=== PATIENT | male | born 1940 | race Caucasian/White ===

== ENCOUNTER 2016-12-07 20:57 | Inpatient (IN) | payer OTHER ==
[~2016-12-07] VITALS: Ht 172.7 cm; Wt 88.5 kg
--- NOTE | 2016-12-07 20:54 | EMERGENCY ROOM VISIT NOTE ---
History Report prepared by Lenoreibki: Arpita Mahmood Under the Supervision of: Dr. Jose E Parikh M.D. First contact with patient: 20:51 Stated Complaint: HEART ALERT History of Present Illness The patient is a 76 year old male who presents to the Emergency Room with complaints of cardiac arrest that started prior to arrival. He was brought to the ED via EMS. 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 He thought the pain would resolve, but when it didn't, he called EMS. Upon EMS arrival, the patient was diaphoretic, in ST elevation and rated his pain as a 6/10 in severity. He went into cardiac arrest and was shocked twice. After the 2nd shock, the patient was bradycardic. EMS gave him 324 mg Aspirin and 150 mg Amiodarone en route. EMS reports the patient has a history of a previous stroke and diabetes. The patient denies any current chest pain, shortness of breath or nausea. 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 A total of ten systems were reviewed and were otherwise negative. Past Medical & Surgical Medical Problems: (1) ACS (acute coronary syndrome) (2) Confusion (3) Diabetes (4) Stroke Social History Alcohol Use: occasionally Drug Use: none Marital Status: Housing Status: lives alone Occupation Status: retired Current/Historical Medications Scheduled Aspirin (Aspirin 81), 81 MG PO DAILY Atorvastatin (Atorvastatin Calcium), 20 MG PO DAILY Clopidogrel Bisulfate (Clopidogrel), 75 MG PO DAILY Furosemide (Furosemide), 20 MG PO DAILY Insulin Lispro Protamine & Lis (Humalog Mix 75/25 Kwikpen), 30 UNITS SC BID Lisinopril (Zestril), 10 MG PO DAILY Metformin Ext Rel (Glucophage Ext Rel), 1 TAB PO DAILY Allergies Coded Allergies: No Known Allergies (Unverified , 11/23/14) Physical Exam Vital Signs Date Time Temp Pulse Resp B/P (MAP) Pulse Ox O2 Delivery O2 Flow Rate FiO2 12/07/16 23:45 36.4 108 19 121/76 (91) 93 Oxymask 10.0 12/07/16 23:30 36.4 106 17 109/76 (87) 90 Oxymask 10.0 12/07/16 23:14 108 18 112/68 (83) 95 Non-Rebreather 100 12/07/16 23:04 110 18 114/68 (83) 95 Non-Rebreather 100 12/07/16 21:17 97 12/07/16 21:16 36.8 98 24 95/71 90 Non-Rebreather 12/07/16 21:15 90 Non-Rebreather 15.0 12/07/16 21:03 90 Non-Rebreather 12/07/16 21:03 90 Non-Rebreather 15.0 Physical Exam GENERAL: Awake, alert, pale appearing and diaphoretic. HENT: Normocephalic, atraumatic. Oropharynx unremarkable. Dry mucous membranes. EYES: Normal conjunctiva. Sclera non-icteric. NECK: Supple. No nuchal rigidity. FROM. No JVD. RESPIRATORY: Lung sounds are diminished at the bases, otherwise clear. CARDIAC: Tachycardic heart rate, normal rhythm. Extremities warm and well perfused. Pulses equal. ABDOMEN: Soft, non-distended. No tenderness to palpation. No rebound or guarding. No masses. RECTAL: Deferred. MUSCULOSKELETAL: Chest examination reveals no tenderness. The back is symmetrical on inspection without obvious abnormality. There is no CVA tenderness to palpation. No joint edema. LOWER EXTREMITIES: Calves are equal size bilaterally and non-tender. No lower extremity edema. No discoloration. NEURO: Normal sensorium. No sensory or motor deficits noted. SKIN: No rash or jaundice noted. Medical Decision & Procedures ER Provider Diagnostic Interpretation: Radiology results as stated below per my review and interpretation: BEDSIDE ECHOCARDIOGRAM Shows no pericardial effusion, but the patient does have inferior hypokinesis. Radiology results as stated below per my review and radiologist interpretation: CHEST ONE VIEW PORTABLE HISTORY: 76 years-old Male HEART ALERT acute altered mental status with cardiac symptoms. Initial exam. COMPARISON: Chest chest radiograph 10/07/2015 TECHNIQUE: Portable upright AP view of the chest FINDINGS: Cardiac silhouette is mildly enlarged. There is atherosclerosis of the aorta. There is no pneumothorax. There is mild blunting of the costophrenic angles with background interstitial coarsening, pulmonary vascular congestion and patchy bibasilar alveolar opacities. Bones are grossly intact. IMPRESSION: 1. Mild cardiomegaly with background interstitial coarsening suggests mild pulmonary edema. 2. Blunting of the costophrenic angles suggests trace pleural effusions or atelectasis. The above report was generated using voice recognition software. It may contain grammatical, syntax or spelling errors. Electronically signed by: Oniel Ramirez M.D. 12/07/2016 9:51 PM Laboratory Results 12/07/16 21:06 Red Blood Count 4.76, Mean Corpuscular Volume 94.1, Mean Corpuscular Hemoglobin 31.7, Mean Corpuscular Hemoglobin Concent 33.7, Mean Platelet Volume 9.5, Neutrophils (%) (Auto) 57.9, Lymphocytes (%) (Auto) 34.3, Monocytes (%) (Auto) 4.9, Eosinophils (%) (Auto) 2.0, Basophils (%) (Auto) 0.4, Neutrophils # (Auto) 6.43, Lymphocytes # (Auto) 3.81, Monocytes # (Auto) 0.55, Eosinophils # (Auto) 0.22, Basophils # (Auto) 0.05 Test 12/07/16 21:06 12/07/16 21:09 12/07/16 22:35 White Blood Count 11.12 K/uL (4.8-10.8) Red Blood Count 4.76 M/uL (4.7-6.1) Hemoglobin 15.1 g/dL (14.0-18.0) Hematocrit 44.8 % (42-52) Mean Corpuscular Volume 94.1 fL (80-100) Mean Corpuscular Hemoglobin 31.7 pg (25-34) Mean Corpuscular Hemoglobin Concent 33.7 g/dl (32-36) Platelet Count 279 K/uL (130-400) Mean Platelet Volume 9.5 fL (7.4-10.4) Neutrophils (%) (Auto) 57.9 % Lymphocytes (%) (Auto) 34.3 % Monocytes (%) (Auto) 4.9 % Eosinophils (%) (Auto) 2.0 % Basophils (%) (Auto) 0.4 % Neutrophils # (Auto) 6.43 K/uL (1.4-6.5) Lymphocytes # (Auto) 3.81 K/uL (1.2-3.4) Monocytes # (Auto) 0.55 K/uL (0.11-0.59) Eosinophils # (Auto) 0.22 K/uL (0-0.5) Basophils # (Auto) 0.05 K/uL (0-0.2) RDW Standard Deviation 46.0 fL (36.4-46.3) RDW Coefficient of Variation 13.4 % (11.5-14.5) Immature Granulocyte % (Auto) 0.5 % Immature Granulocyte # (Auto) 0.06 K/uL (0.00-0.02) Prothrombin Time 10.6 SECONDS (9.0-12.0) Prothromb Time International Ratio 1.0 (0.9-1.1) Activated Partial Thromboplast Time 22.4 SECONDS (21.0-31.0) Partial Thromboplastin Ratio 0.9 Est Creatinine Clear Calc Drug Dose 36.0 ml/min Magnesium Level 2.2 mg/dl (1.8-2.4) Total Bilirubin 0.3 mg/dl (0.2-1) Direct Bilirubin 0.1 mg/dl (0-0.2) Aspartate Amino Transf (AST/SGOT) 55 U/L (15-37) Alanine Aminotransferase (ALT/SGPT) 79 U/L (12-78) Alkaline Phosphatase 127 U/L (45-117) Total Creatine Kinase 133 U/L (39-308) Creatine Kinase MB 3.0 ng/ml (0.5-3.6) Creatine Kinase MB Ratio 2.3 (0-3.0) Total Protein 6.3 gm/dl (6.4-8.2) Albumin 3.1 gm/dl (3.4-5.0) Lipase 114 U/L (73-393) Beta-Hydroxybutyric Acid 1.68 mg/dL (0.2-2.81) Bedside Troponin I < 0.030 ng/ml (0-0.045) Kaolin Activated Coagulation Time 241 SECONDS (94-140) Laboratory results reviewed by me Medications Administered Medications (Trade) Dose Ordered Sig/Rae Route Start Time Stop Time Status Last Admin Dose Admin Sodium Chloride 1,000 ml @ 0 mls/hr Q0M STAT IV 12/07/16 20:56 12/07/16 20:58 DC 12/07/16 20:56 1,000 MLS/HR Amiodarone HCL/ Dextrose (Nexterone / D5w) 360 mg STK-MED ONCE .ROUTE 12/07/16 21:06 12/07/16 21:07 DC 12/07/16 21:06 360 MG Heparin Sodium (Porcine) (Heparin Sq 5000 Unit/0.5ml) 5,000 unit STK-MED ONCE .ROUTE 12/07/16 21:11 12/07/16 21:12 DC 12/07/16 21:15 5,000 UNIT Ticagrelor (Brilinta Cap) 180 mg ONE ONCE PO 12/07/16 21:15 12/07/16 21:16 DC 12/07/16 21:15 180 MG Heparin Sodium (Porcine) (Heparin Iv Bolus) 10,000 unit STK-MED ONCE .ROUTE 12/07/16 21:13 12/07/16 21:14 DC 12/07/16 21:13 10,000 UNIT Midazolam HCl (Versed Inj) 2 mg STK-MED ONCE .ROUTE 12/07/16 21:13 12/07/16 21:14 DC 12/07/16 21:13 1 MG Fentanyl Citrate (Fentanyl Inj) 100 mcg STK-MED ONCE .ROUTE 12/07/16 21:13 12/07/16 21:14 DC 12/07/16 21:13 25 MCG Amiodarone HCl (Cordarone IV Bolus / Drip) 1 ea NOW STAT IV 12/07/16 21:14 12/07/16 21:16 DC 12/07/16 21:14 1 EA Ondansetron HCl (Zofran Inj) 4 mg STK-MED ONCE .ROUTE 12/07/16 21:19 12/07/16 21:20 DC 12/07/16 21:22 4 MG ECG Indication: chest pain Rhythm: sinus tachycardia Findings: ST elevation (Inferior) ED Course 2055: NSS 1000 ml @ 0 mls/hr IV. 2057: The patient was evaluated in room A1. A complete history and physical exam was performed. 2105: Nexterone 360 mg IV. 2115: I discussed the patients case with Dr. Pak [facility] Interventional Cardiology. The patient will be further evaluated. 2136: I discussed the patients case with Dr. Medrano, [facility] Gun Welder. The patient will be further evaluated. Medical Decision I reviewed the patient's past medical history, medications, and the nursing notes as described above. The differential diagnoses considered include Patient is a 76-year-old gentleman with a past medical history of stroke presents to emergency department with chest pain starting 2 hours prior to arrival found to have inferior ST elevation [place] by EMS, subsequent V-tach arrest requiring defibrillation and epinephrine and then subsequent defibrillation until sinus tach was obtained. The patient was given `50 mg of amiodarone. The patient arrives alert and oriented however pale and diaphoretic. Systolic blood pressure soft in the 90s but otherwise stable. EKG on arrival confirms inferior ST elevation FL. Bedside echo shows diffuse hypokinesis inferiorly without pericardial effusion. Dr. Pak, carbon coater machine operator, at the bedside and consented patient for cardiac catheterization. Agrees with heparin bolus which was given and ticagrelor which was ordered however patient having nausea and vomiting in the setting of his nasal airway, nasal airway was removed , given zofran and thus the ticagrelor was sent with the patient to the Submar[facility] Cable Equipment Technician. Dr. Michelle, medicine hospitalist was made aware as well as Dr. Medrano, ICU viscosity inspector. Medication Reconcilliation Current Medication List: was personally reviewed by me Blood Pressure Screening Patient's blood pressure: Low blood pressure Low BP was found to be situational. Consults Time Called: 2113 [facility] Returned Call: 2115 I discussed the patients case with Dr[facility]. The patient will be further evaluated. Additional Consults: Time Called: 2134 Consulted Physician: Dr. Medrano, [facility] Gun [employer]der Returned Call: 2136 Additional Comments: I discussed the patients case with Dr. Medrano [facility] [employer]der. The patient will be further evaluated. Impression Primary Impression: ST elevation myocardial infarction (STEMI) of inferior wall Critical Care I have personally spent greater than [35] minutes of critical care time in the direct management of this patient. This includes bedside care, interpretation of diagnostic studies, and testing, discussion with consultants, patient, and family members, and other required patient management activities. This [35] minutes is in excess of all separately billable procedures. Scribe Attestation The scribe's documentation has been prepared under my direction and personally reviewed by me in its entirety. I confirm that the note above accurately reflects all work, treatment, procedures, and medical decision making performed by me. Departure Information Dispostion Other (The patient is being further evaluated by interventional cardiology)
[~2016-12-07 20:57] MED LIST: ASPI-435 PO; INSU75IN2 SC; LISI-461 PO; LPT/20 PO; LSX20 PO; METFTAB PO; PLV75 PO; SODIUM CHLORIDE 0.9% 1000ML 1,000 ML IV STA
[2016-12-07] MEDS ORDERED: AMIODARONE 360MG / 200ML D5W ONE (21:06)
[2016-12-07] MEDS ORDERED: HEPARIN SOD 5000 UNIT/0.5 ML CARP ONE (21:11)
[2016-12-07] MEDS ORDERED: HEPARIN SOD (PORCINE) 1000 UNIT/ML 10 ML VIAL IV STA (21:12)
[2016-12-07] MEDS ORDERED: NiCARDipine HCL INJ 2.5 MG/ML 10 ML AMP ONE (21:13)
[2016-12-07] MEDS ORDERED: FENTANYL CITRATE INJ 50 MCG/1 ML 2 ML VIAL ONE (21:13)
[2016-12-07] MEDS ORDERED: HEPARIN SOD (PORCINE) 1000 UNIT/ML 10 ML VIAL ONE (21:13)
[2016-12-07] MEDS ORDERED: NITROGLYCERIN/D5W 100MCG/ML 20ML SYR ONE (21:13)
[2016-12-07] MEDS ORDERED: MIDAZOLAM HCL 1 MG/ML 2ML VIAL ONE (21:13)
[2016-12-07] MEDS ORDERED: AMIODARONE IV BOLUS / DRIP IV STA (21:14)
[2016-12-07] MEDS ORDERED: TICAGRELOR 90 MG TAB PO ONE (21:15)
[2016-12-07] MEDS ORDERED: ONDANSETRON INJ 2 MG/ML 2 ML VIAL IV STA (21:19)
[2016-12-07] MEDS ORDERED: ONDANSETRON INJ 2 MG/ML 2 ML VIAL ONE (21:19)
--- NOTE | 2016-12-07 21:21 | Procedure Note ---
Pre-Mod Sedation Assessment General Date of Moderate Sedation: Dec 07, 2016. Vital Signs: Vital Signs Past 12 Hours Date Time Temp Pulse Resp B/P (MAP) Pulse Ox O2 Delivery O2 Flow Rate FiO2 12/07/16 21:17 97 12/07/16 21:16 36.8 98 24 95/71 90 Non-Rebreather 12/07/16 21:03 90 Non-Rebreather 12/07/16 21:03 90 Non-Rebreather 15.0 Review Cardiovascular: regular rate, rhythm, no edema Abdomen: normal bowel sounds, non tender Lungs: chest non-tender, lungs clear Airway Class: III Pre-Sedation Airway Assessment Oral Cavity: Dental Abnormalities Able to Visualize Vocal Cords: No Short Thick Neck: No Hx of Sleep Apnea: No Smoking Status: Never Smoker Mallampati Classification: Class III ASA Classification: Class IV Procedure Planning Contraindications-for Mod Sed: None Yes Notes The planned sedation has been discussed with the patient and consent obtained. I have identified the patient, determined the appropriateness of sedation and have assessed the patient immediately prior to the procedure. All medicine(s) and interventions are by my order.
[2016-12-07 21:22] LABS: BASO % 0.4 %; BASO ABS # 0.05 K/uL (0-0.2); COMPLETE YES; HEMATOCRIT 44.8 % (42-52); IG% 0.5 %; LYMPH % 34.3 %; LYMPH ABS # 3.81 K/uL (1.2-3.4); MEAN CELL VOLUME 94.1 fL (80-100); MEAN CORPUSCULAR HEMOGLOBIN 31.7 pg (25-34); MEAN CORPUSCULAR HGB CONC 33.7 g/dl (32-36); MEAN PLATELET VOLUME 9.5 fL (7.4-10.4); MONO % 4.9 %; NEUT % 57.9 %; PLATELET COUNT 279 K/uL (130-400); RED BLOOD COUNT 4.76 M/uL (4.7-6.1); WHITE BLOOD COUNT 11.12 K/uL (4.8-10.8)
[2016-12-07 21:42] LABS: PARTIAL THROMBOPLASTIN RATIO 0.9; PROTHROMBIN TIME (PATIENT) 10.6 SECONDS (9.0-12.0)
--- NOTE | 2016-12-07 21:52 | DIAGNOSTIC IMAGING REPORT ---
CHEST ONE VIEW PORTABLE HISTORY: 76 years-old Male HEART ALERT acute altered mental status with cardiac symptoms. Initial exam. COMPARISON: Chest chest radiograph 10/07/2015 TECHNIQUE: Portable upright AP view of the chest FINDINGS: Cardiac silhouette is mildly enlarged. There is atherosclerosis of the aorta. There is no pneumothorax. There is mild blunting of the costophrenic angles with background interstitial coarsening, pulmonary vascular congestion and patchy bibasilar alveolar opacities. Bones are grossly intact. IMPRESSION: 1. Mild cardiomegaly with background interstitial coarsening suggests mild pulmonary edema. 2. Blunting of the costophrenic angles suggests trace pleural effusions or atelectasis. The above report was generated using voice recognition software. It may contain grammatical, syntax or spelling errors. Electronically signed by: Oniel Ramirez M.D. 12/07/2016 9:51 PM Dictated Date/Time: 12/07/2016 9:49 PM
[2016-12-07 21:55] LABS: BUN/CREATININE RATIO 10.5 (10-20); CALCIUM 7.9 mg/dl (8.5-10.1); CKMB/CK RATIO 2.3 (0-3.0); CREATININE 1.8 mg/dl (0.60-1.40); MAGNESIUM 2.2 mg/dl (1.8-2.4); POTASSIUM 3.4 mmol/L (3.5-5.1)
[2016-12-07 22:08] LABS: BETA-HYDROXYBUTYRATE 1.68 mg/dL (0.2-2.81)
--- NOTE | 2016-12-07 23:10 | CARDIOLOGY CONSULTATION ---
DATE OF CONSULTATION: 12/07/2016 REASON FOR CONSULTATION: Heart alert/inferior STEMI. CONSULTATION REQUESTED BY: Dr. Parikh/Emergency Department. HISTORY OF PRESENT ILLNESS: Mr. Russell is a 76-year-old male with a history of type 2 diabetes on insulin, prior CVA, hypertension, chronic kidney disease, here with inferior STEMI. The patient endorsed 2 hours of chest pain before calling EMS. Pain was substernal, 6/10 and constant. Upon arrival by EMS, the patient was given aspirin, but then arrested, requiring 2 defibrillations before return of spontaneous circulation. Upon arrival in the Emergency Department, he had inferior ST elevations and appeared to be in an accelerated junctional rhythm with reciprocal anterior ST depressions. He was hemodynamically stable and maintaining oxygen saturations on face mask. He was alert and able to answer questions. PAST MEDICAL HISTORY: 1. Type 2 diabetes. 2. Hypertension. 3. Chronic kidney disease stage IV. 4. Prior CVA. FAMILY HISTORY: Noncontributory. 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 He is not . REVIEW OF SYSTEMS: Not obtained in the emergent situation. ALLERGIES: No known drug allergies. HOME MEDICATIONS: Include aspirin 81, atorvastatin 20, Plavix 75, furosemide 20, insulin lispro 10 and metformin. PHYSICAL EXAMINATION: VITAL SIGNS: Temperature 36.4, pulse 98, blood pressure 95/71, he is satting 90% on nonrebreather at 15 liters. GENERAL: The patient appeared ill, in no acute distress. HEENT: Sclerae are anicteric. Oropharynx is clear. Mucous membranes are moist. NECK: Supple with no lymphadenopathy. LUNGS: Clear to auscultation bilaterally. HEART: Irregular rate and rhythm. He had no murmurs, rubs or gallops. ABDOMEN: Soft, nontender, nondistended with positive bowel sounds. EXTREMITIES: Warm with no significant lower extremity edema. SKIN: Showed no rashes. NEUROLOGIC: He had 2+ radial pulses bilaterally. LABORATORY DATA: Laboratory studies not returned. Chest x-ray showed no significant acute cardiopulmonary process. EKG showed accelerated junctional rhythm with inferior ST elevations. IMPRESSION AND PLAN: 1. Inferior ST elevation myocardial infarction. 2. Post-cardiac arrest with return of spontaneous circulation. 3. Type 2 diabetes on insulin 4. History of chronic kidney disease. 5. History of prior cerebrovascular accident. He is now chest pain free and hemodynamically stable. Inferior ST elevation persist and with earlier VT arrest we will plan to take patient emergently to cardiac catheterization lab for coronary angiography and likely PCI. Risks, benefits, and alternatives of procedure were discussed with the patient, he is willing to proceed. Further recommendations depending on findings of study. EFREND
[2016-12-07 23:30] VITALS: BP 109/76; PULSE 106; TEMP 36.4; O2SAT 90; O2SAT 94; BMI 29.3
[2016-12-07 23:45] VITALS: BP 121/76; PULSE 108; TEMP 36.4; O2SAT 93
--- NOTE | 2016-12-07 23:51 | Cardiac Catheterization ---
Procedure Note Procedure Date Dec 07, 2016. Pre-Procedure Diagnosis STEMI AUC Score 9 Post-Procedure Diagnosis Severe CAD, Successful PCI, Elevated Intracardiac Pressures Procedure(s) Performed Coronary Angiography, Left Heart Cath, Drug Eluting Stent Turn Out Worker Pasha Paperhanger(s) Ángel Estimated Blood Loss 20 Medication(s) Fentanyl, Heparin, Versed, Lidocaine 1% Ticagrelor Summary of Findings Indication: STEMI/Heart Alert. Acute chest pain with. VT/Cardiac arrest en route requiring defibrillation x 2 before ROSC Access: 6Fr Right Radial Artery Catheters: [place]; JR4 guide Findings: LM - Small vessel with diffuse disease, tapering distally LAD - Small vessel, diffuse proximal disease before chronic occlusion at take- off 2nd diagonal and 1st septal. 1st diagonal very small with diffuse disease. 2nd diagonal with 70% proximal disease. Distal LAD and 3rd diagonal are small vessels which fill by left to left collaterals. Circumflex - Small vessel, 90% mid segment stenosis. RCA - Dominant, large caliber vessel, 70-80% diffuse early-mid segment stenosis , acute 100% late-mid segment occlusion. After flow re-established 60% distal stenosis just before take-off of R-PDA. R-PDA with 60% ostial, 90% mid stenosis. Luminal irregularities in PLBs and evidence of right to left collaterals to LAD. LVEDP - 20 -- PCI -- Antithrombotic therapy: Heparin, Ticagrelor Procedure: RCA cannulated with JR4 guide Marketing Officer 50 wire passed across lesion into distal vessel Late-mid RCA lesion predilated with 2.5 compliant balloon Poor angioplasty result and decision made to proceed with stenting of RCA Remainder of mid RCA lesions dilated with 2.5 balloon. Stent delivered to distal vessel with aid of guideliner Late-mid to distal RCA stented with 3.0 x 26 Resolute MALICK 3.0 x 38 [place] Resolute MALICK placed from proximal RCA and overlapped distally with 1st stent. Stents post-dilated with 3.5 NC balloon to high-atmospheres Distal RCA after stents appeared more significant than initially appreciated and 3rd stent was placed to distal RCA overlapping distal end of 1st stent placed. Stent post-dilated with stent balloon. Post procedure FELIPA 3 flow, stents well expanded with minimal residual stenosis and no apparent cardiac complications. Arterial Closure: TR Band Summary: 1. Inferior STEMI/Acute occluded RCA 2. Severe multivessel coronary artery disease - Small chronically occluded early-mid LAD with distal vessel filling via left to left and right to left collaterals. - Small 2nd diagonal with 70% proximal disease - Small circumflex with 90% mid stenosis 3. Elevated intracardiac filling pressure, LVEDP 20 4. Successful PCI of proximal to distal RCA with 3 overlapping MALICK (3.0 x 38 [place] Resolute, 3.0 x 26 Resolute, 2.75 x 15 [place] Resolute) Recommendations: Admit to ICU for continued monitoring Loaded with Ticagrelor 180mg in label cutter Continue dual-antiplatelet therapy for 1 year Trend troponins until peak, Check Echo Start beta-treasure as BP allows. Resume RAÚL pending renal function post contrast High-dose statin Consult cardiac Rehab Further decision regarding management of residual CAD pending clinical course, echo findings. Likely medical management for small diffusely diseased vessels. Hemodynamics Rest Ao: 97/58/77 Final Ao: 105/63/81 LV: 101/18 Recommendations PCI without planned CABG Specimens None Radiation Exposure (mGy) 6266 Contrast (mls) 190 Visi Fluids (cc crystalloids) 190 Drains None Anesthesia Moderate Procedural Complication(s) None Disposition ICU ACC Data Cardiac Status Clinical evaluation leading to the procedure CAD Presntation: STEMI Anginal Classification: CCS IV Heart Failure: No, NYHA Class: CCS I Cardiogenic Shock w/in 24Hrs: No Cardiac Arrest w/in 24Hrs: No Imaging studies past 6 months: No Stress studies past 6 months: No Coronary Anatomy Dominant: Right Closure Device Percutaneous Entry Location: Radial Closure Device: Radial Band Recommendations: PCI without planned CABG PCI Indication: Immediate PCI for STEMI Lesion Segment Name: Mid RCA Culprit Artery: Yes Stenosis Prior to Rx (%): 100 Chronic Total Occlusion: No IVUS: No FFR: No Pre-Procedure FELIPA Flow: 0 Previously Treated Lesion: No Lesion Complexity: High/C Lesion Length (mm): 25 Thrombus Present: Yes Bifurcation Lesion: No Guidewire Across Lesion: Yes Guidewire: Stenosis Post-Procedure (%): 0 Post-Procedure FELIPA Flow: 3 Device(s) Deployed: Yes Intraprocedure Events Significant Dissection: No Perforation: No
[2016-12-08] VITALS (47 sets, daily range): BP systolic 74–129; BP diastolic 41–93; PULSE 84–115; TEMP 36.4–37.2; O2SAT 87–96; Ht 172.7 cm; Wt 88.5 kg
[2016-12-08] MEDS ORDERED: ONDANSETRON INJ 2 MG/ML 2 ML VIAL IV PRN
[2016-12-08] MEDS ORDERED: NITROGLYCERIN 0.4 MG SL PER TAB CHARGE SL PRN
[2016-12-08] MEDS ORDERED: ATROPINE SULFATE 0.1 MG/ML 5ML SYR IV PRN
[2016-12-08] MEDS ORDERED: SODIUM CHLORIDE 0.9% 1000ML 1,000 ML IV SCH
[2016-12-08] MEDS ORDERED: POTASSIUM CHLORIDE 10 MEQ TABCR PO STA (00:01)
[2016-12-08] MEDS ORDERED: INSULIN GLARGINE SOLOSTAR 100 UNITS/ML 3 ML PEN SC ONE ×2 (00:02→00:19)
[2016-12-08] MEDS ORDERED: INSULIN ASPART 100 UNITS/ML 3 ML PEN SC ONE (00:02)
--- NOTE | 2016-12-08 00:06 | Procedure Note ---
Post-Mod Sedation Assessment General Date of Moderate Sedation Dec 07, 2016. Vital Signs: Vital Signs Past 12 Hours Date Time Temp Pulse Resp B/P (MAP) Pulse Ox O2 Delivery O2 Flow Rate FiO2 12/07/16 21:17 97 12/07/16 21:16 36.8 98 24 95/71 90 Non-Rebreather 12/07/16 21:03 90 Non-Rebreather 12/07/16 21:03 90 Non-Rebreather 15.0 Review - Discharge Criteria Vital Signs Stable: Yes Alert/Oriented/Conversant: Yes Returned to Baseline Mental St: Yes Nausea Absent/Minimal: Yes Pain/Discomfort/Absent/Minimal: Yes Normal/Baseline Respirations: Yes Active Bleeding?: Yes Pt Received D/C Instructions: No Prescriptions Given: None Specific Proced. D/C Criteria Distal Pulses Present (Cardiac: Yes Groin site assessed-Card Cath: N/A Voided Prior To Discharge: N/A Discharged Patients Adult Escort/Transportation: Yes
[2016-12-08] MEDS ORDERED: GLUCOSE 40% GEL 15 GM TUBE PO PRN (00:15)
[2016-12-08] MEDS ORDERED: GLUCOSE 10 TABS/TUBE PO PRN (00:15)
[2016-12-08] MEDS ORDERED: DEXTROSE 50% 50 ML SYR IV PRN (00:15)
[2016-12-08] MEDS ORDERED: LEVALBUTEROL/IPRATROPIUM NEB INH PRN (00:15)
[2016-12-08] MEDS ORDERED: GLUCAGON FOR INJ 1 MG VIAL SQ PRN (00:15)
[2016-12-08 01:12] LABS: ARTERIAL BLD GAS O2 SATURATION 92.8 % (90-95); ARTERIAL BLOOD GAS BASE EXCESS -5.7 mEq/L (-9-1.8); ARTERIAL BLOOD GAS HCO3 18 mmol/L (19-24); ARTERIAL BLOOD GAS PO2 69 mm/Hg (80-95); ARTERIAL BLOOD GAS pH 7.37 (7.35-7.45)
[2016-12-08 01:13] LABS: ALLEN TEST POS (POS); O2 ADMINISTRATION 10 L
[2016-12-08 01:30] LABS: BUN/CREATININE RATIO 12.7 (10-20); CALCIUM 8.3 mg/dl (8.5-10.1); CREATININE 1.5 mg/dl (0.60-1.40); POTASSIUM 4.9 mmol/L (3.5-5.1)
[2016-12-08] MEDS ORDERED: LEVALBUTEROL/IPRATROPIUM NEB INH STA (01:37)
[2016-12-08] MEDS ORDERED: IPRATROPIUM BROMIDE NEB SOLN 0.02% 2.5 ML VIAL INH STA (01:40)
[2016-12-08] MEDS ORDERED: LEVALBUTEROL 1.25MG/0.5ML NEB INH STA (01:40)
[2016-12-08 01:45] LABS: BETA-HYDROXYBUTYRATE 7.03 mg/dL (0.2-2.81); THYROID STIMULATING HORMONE 2.86 uIu/ml (0.300-4.500)
[2016-12-08] MEDS ORDERED: AMIODARONE / D5W 100 ML IV STA (01:55)
[2016-12-08] MEDS ORDERED: METOPROLOL TARTRATE 25 MG TAB PO STA (01:55)
[2016-12-08] MEDS ORDERED: NURSING VERBAL MED ORDER ONE ×2 (02:00→03:15)
[2016-12-08] MEDS ORDERED: ACETAMINOPHEN 325 MG TAB PO PRN ×2 (03:00)
[2016-12-08] MEDS ORDERED: AMIODARONE 360MG / 200ML D5W ONE (03:08)
[2016-12-08] MEDS ORDERED: AMIODARONE / D5W 200 ML IV SCH (03:15)
--- NOTE | 2016-12-08 04:42 | HISTORY & PHYSICAL EXAMINATION ---
DATE OF ADMISSION: 12/07/2016 PRIMARY CARE PHYSICIAN: Dr. Kalin Matthews. CHIEF COMPLAINT: Chest pain. HISTORY OF PRESENT ILLNESS: History is obtained from the patient, ER provider, and records. Medical history is significant for TIA, hypertension, hyperlipidemia, DM2 insulin requiring, chronic renal insufficiency (baseline creatinine 1.8). Recent confinement last October 2015 for confusion, hypoglycemia. Patient noted bilaterally leg swelling 2 weeks ago. Denies shortness of breath. Did not tell family doctor patient Last night, the patient was watching television, had substernal heaviness w/ diaphoresis for about 2 hours. Son called EMS. ST elevations noted as per ER MD. Patient went into cardiac arrest and was shocked twice. Patient does not recall the episode, remembers having bitten his tongue. Px given ASA, IV amiodarone bolus en route to the hospital. At the Emergency Room, EKG done showed ST elevation in the inferior leads. Heart Alert called. Patient underwent emergent cardiac catheterization. Acute occluded RCA noted, severe multivessel CAD with chronically occluded early mid LAD, small secondary with 70%, small circumflex with 90% stenosis, LVEDP of 20. PCI of proximal and distal RCA with the overlapping stents. Patient transferred to the ICU. Currently comfortable. MEDICAL HISTORY: As above. SURGERIES: Appendectomy. HOME MEDICATIONS: Include, aspirin, Lipitor, Plavix, furosemide, Humalog, Zestril DRUG ALLERGIES: PENICILLIN, METFORMIN . FAMILY HISTORY: No heart disease as per the patient. PERSONAL SOCIAL HISTORY: Nonsmoker, no chronic intake of alcoholic beverages. 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 REVIEW OF SYSTEMS: As per HPI, all other ROS negative. PHYSICAL EXAMINATION: VITAL SIGNS: Blood pressure was noted to be 129/90, pulse rate 111, RR 20, temperature 36.4, sats 93 on 10 L oxygen mask. GENERAL: Somewhat anxious, obese, no respiratory distress. SKIN: Pallor. HEENT: alopecia. pink palpebral conjunctivae. Dry mucosa. O2 mask noted CHEST: Decreased breath sounds. HEART: Tachycardic. ABDOMEN: Some distension, non tender. EXTREMITIES: Minimal LE edema, no tenderness. NEUROLOGIC: No gross focality. LABORATORY DATA: Hemoglobin was noted to be 15.1, white cells 11, platelets 279. Sodium 139, potassium 3.4, chloride 108, CO2 is 18, BUN 19, creatinine 1.8, glucose 264. Troponin 0.03. ABG: pH of 7.27, pCO2 32, pO2 69 on 10 liters. EKG as per my interpretation sinus tachycardia, ST elevation in inferior leads, PRWP. Hemoglobin A1c from October 2015 was 9.4. IMAGING DATA: Chest x-ray: Cardiomegaly, mild pulmonary edema, atelectasis. ASSESSMENT: 1. Acute coronary syndrome ST elevation [place] status post percutaneous coronary intervention. Patient currently chest pain-free at the ICU. 2. hx VT/VF sp defibrillation with subsequent ROSC Patient current mentation at baseline. Currently on IV Amiodarone drip. 3. Acute hypoxemic respiratory failure secondary to acute congestive heart failure likely secondary to ischemic cardiomyopathy. 4. Lower extremity swelling secondary to above rule out DVT 5. HTN, blood pressure on the lower side. 6. Chronic renal insufficiency, creatinine at baseline. 7. DM2, insulin requiring, suboptimal control as of A1c from last year. Patient markedly hyperglycemic upon arrival at the ER. 8. hx TIA as per records PLAN: ICU monitoring Management of cardiac issues as per cardiology. supplemental O2, nebs p.r.n. Monitor for fluid overload with post-PCI IV fluids, may need IV Lasix. Strict IOs, daily weights, CHF education Lower extremity Dopplers rule out DVT Basal insulin, ISS BG goal 140-180. Check hemoglobin A1c May diabetic education pending HgA1c results. PT, OT eval. DVT prophylaxis as per post-PCI orders. Full code. MTDD
[2016-12-08 06:15] LABS: BASO % 0.1 %; BASO ABS # 0.02 K/uL (0-0.2); COMPLETE YES; EOS % 0.1 %; HEMATOCRIT 43.2 % (42-52); IG% 0.5 %; LYMPH % 6.3 %; MEAN CELL VOLUME 90.9 fL (80-100); MEAN CORPUSCULAR HEMOGLOBIN 32.4 pg (25-34); MEAN CORPUSCULAR HGB CONC 35.6 g/dl (32-36); MEAN PLATELET VOLUME 9.5 fL (7.4-10.4); MONO % 6.5 %; NEUT % 86.5 %; PLATELET COUNT 245 K/uL (130-400); RED BLOOD COUNT 4.75 M/uL (4.7-6.1); WHITE BLOOD COUNT 17.58 K/uL (4.8-10.8)
[2016-12-08 06:28] LABS: ESTIMATED AVERAGE GLUCOSE 229 mg/dl; HA1C FLAG Normal (Normal)
[2016-12-08] MEDS ORDERED: ALBUMIN HUMAN 25% 12.5 GM/50 ML VIAL IV STA (06:45)
--- NOTE | 2016-12-08 07:19 | DIAGNOSTIC IMAGING REPORT ---
ULTRASOUND BILATERAL LOWER EXTREMITY VENOUS CLINICAL HISTORY: Lower extremity edema. COMPARISON STUDY: No priors. TECHNIQUE: Real-time, grayscale, and color Doppler sonography of the deep veins of the right and left lower extremity was performed from the inguinal crease to the calf. Compression and augmentation were utilized. FINDINGS: There is no sonographic evidence of deep venous thrombosis identified in the right or left lower extremity. The common femoral, superficial femoral, and popliteal veins are patent and normally compressible bilaterally. The greater saphenous vein and the profunda femoris vein at the junction with the common femoral vein are clear in both legs. The visualized calf veins are patent bilaterally. IMPRESSION: There is no sonographic evidence of deep venous thrombosis identified in the right or left lower extremity. Electronically signed by: Corey Brown M.D. 12/08/2016 7:18 AM Dictated Date/Time: 12/08/2016 7:18 AM
[2016-12-08] MEDS: INSULIN ASPART 100 UNITS/ML 3 ML PEN SC SCH ×4 (08:43→20:55)
[2016-12-08] MEDS: ATORVASTATIN 40 MG TAB PO SCH (08:44)
[2016-12-08] MEDS: AMIODARONE / D5W 200 ML IV SCH ×2 (08:44→19:37)
[2016-12-08] MEDS: ASPIRIN 81 MG ECTAB PO SCH (08:45)
[2016-12-08] MEDS: TICAGRELOR 90 MG TAB PO SCH ×2 (08:45→20:54)
[2016-12-08] MEDS ORDERED: METOPROLOL TARTRATE 25 MG TAB PO SCH ×2 (09:00→21:00)
[2016-12-08] MEDS ORDERED: INSULIN GLARGINE SOLOSTAR 100 UNITS/ML 3 ML PEN SC SCH ×2 (09:00)
[2016-12-08] MEDS: SODIUM CHLORIDE 0.9% 1000ML 1,000 ML IV SCH (09:54)
--- NOTE | 2016-12-08 11:44 | Critical Care Consultation ---
Critical Care Consultation Date of Consultation: Dec 08, 2016. Attending Physician: Amanda Corcoran DO Reason for Consultation: STEMI History of Present Illness This is a 76 yo male patient who is known to have h/o TIA, hypertension, hyperlipidemia, diabetes type 2 insulin requiring, chronic renal insufficiency, with baseline creatinine 1.8. He also has h/o admissions due to hypoglycemia and secondary AMS. He had developed crushing substernal CP while at rest watching TV last evening. It lasted about 2 hours and the son called EMS. They gave him aspirin and brought him to [facility]. When he arrived in the ED he was found to have STEMI with ST elevations in the inferior leads II, III and aVF as well as Wenkebach type 2 blocjs. He developed V tach/Fib and required cardioversion x 2 and one epinephrine with ROSC into sinus tachycardia. he was started on amiodarone and transferred to medical lab tech instructor where Dr Pak performed emergent angiography and found. 1- very [id number] diagonal with diffuse disease. 2- 2nd diagonal with 70% proximal disease. 3- Distal LAD and 3rd diagonal are small vessels which fill by left to left collaterals. 4- small Circumflex with 90% mid segment stenosis. 5- Dominant, RCA with large caliber vessel, 70-80% diffuse early-mid segment stenosis, acute 100% late-mid segment occlusion. + PDA and tributaries. The patient is s/p placement of overlapping 3 MALICK. overnight he had a run of non sustained tachycardia but is on amiodarone The patient this am says the pain is gone and there was no SOB no nausea. He says he used to walk 10 miles a day up till age 71. he also says he has been having trouble controlling BS lately (past 2 months) He complained of L ankle swelling but LE venous doppler shows no DVT Family History Patient reports no known family medical history. No CAD Social History Smoking Status: Never Smoker Drug Use: none Marital Status: Housing Status: lives alone Occupation Status: retired Allergies Coded Allergies: No Known Allergies (Unverified , 11/23/14) Home Medications Scheduled Aspirin (Aspirin 81), 81 MG PO DAILY Atorvastatin (Lipitor), 1 TAB PO DAILY Clopidogrel Bisulfate (Clopidogrel), 75 MG PO DAILY Furosemide (Furosemide), 20 MG PO DAILY Insulin Detemir (Levemir Flextouch), 45 UNITS SQ BID Lisinopril (Lisinopril), 5 MG PO QAM Metoprolol Succinate (Toprol Xl), 100 MG PO DAILY Current Inpatient Medications Current Inpatient Medications Medications (Trade) Dose Ordered Sig/Rae Route Start Time Stop Time Status Last Admin Dose Admin Nitroglycerin (Nitrostat Tab) 0.4 mg UD PRN SL 12/08/16 00:00 01/07/17 00:00 Atropine Sulfate (Atropine Sulfate 0.1MG/Ml Inj) 0.5 mg ONE PRN IV 12/08/16 00:00 01/07/17 00:00 Ondansetron HCl (Zofran Inj) 4 mg Q6H PRN IV 12/08/16 00:00 01/07/17 00:00 Aspirin (Ecotrin Tab) 81 mg QAM PO 12/08/16 09:00 01/07/17 08:59 12/08/16 08:45 81 MG Atorvastatin Calcium (Lipitor Tab) 80 mg QAM PO 12/08/16 09:00 01/07/17 08:59 12/08/16 08:44 80 MG Ticagrelor (Brilinta Cap) 90 mg BID PO 12/08/16 09:00 01/07/17 08:59 12/08/16 08:45 90 MG Insulin Aspart (novoLOG ASPART) SLIDING SCALE If C... ACHS SC 12/08/16 06:45 01/07/17 06:59 12/08/16 08:43 7 UNITS Glucose (Glucose 40% Gel) 15-30 GRAMS 15 GRAMS... UD PRN PO 12/08/16 00:15 01/07/17 00:14 Glucose (Glucose Chew Tab) 4-8 Tablets 4 Tabl... UD PRN PO 12/08/16 00:15 01/07/17 00:14 Dextrose (Dextrose 50% 50ML Syringe) 25-50ML OF 50% DW IV FOR... UD PRN IV 12/08/16 00:15 01/07/17 00:14 Glucagon (Glucagon Inj) 1 mg UD PRN SQ 12/08/16 00:15 01/07/17 00:14 Insulin Glargine (Lantus Solostar Pen) 30 units BID SC 12/08/16 09:00 01/07/17 08:59 12/08/16 08:43 30 UNITS Ipratropium [place] (Atrovent 0.02% 0.5MG/2.5ML Neb) 0.5 mg Q4H PRN INH 12/08/16 00:30 01/07/17 00:29 Levalbuterol (Xopenex 1.25MG/ 0.5ML Neb) 1.25 mg Q4H PRN INH 12/08/16 00:30 01/07/17 00:29 Acetaminophen (Tylenol Tab) 325 mg Q6H PRN PO 12/08/16 03:00 01/07/17 00:00 Amiodarone HCL/ Dextrose 200 ml @ 16.7 mls/hr [id number] IV 12/08/16 09:15 01/07/17 09:14 12/08/16 08:44 16.7 MLS/HR Sodium Chloride 1,000 ml @ 40 mls/hr Q24H IV 12/08/16 09:15 12/09/16 10:00 12/08/16 09:54 40 MLS/HR Metoprolol Tartrate (Lopressor Tab) 25 mg Q12 PO 12/08/16 21:00 01/07/17 08:59 Review of Systems Aside from the complaints in the HPI patient has no other complaints on a 10 point ROS. Physical Exam Date Time Temp Pulse Resp B/P (MAP) Pulse Ox O2 Delivery O2 Flow Rate FiO2 12/08/16 10:01 94 18 105/66 (79) 93 Nasal Cannula 3.0 12/08/16 09:04 92 16 100/54 (69) 94 Nasal Cannula 3.0 12/08/16 08:46 98 21 108/56 (73) 95 Nasal Cannula 3.0 12/08/16 08:01 36.4 98 17 98/52 (67) 96 Nasal Cannula 3.0 12/08/16 07:31 101 22 103/57 (72) 91 Nasal Cannula 3.0 12/08/16 07:01 96 19 91/64 (73) 91 12/08/16 06:46 95 22 103/60 (74) 92 12/08/16 06:32 96 40 74/41 (52) 93 12/08/16 06:17 95 19 80/44 (56) 93 12/08/16 06:17 95 19 80/44 (56) 93 12/08/16 06:01 94 22 104/59 (74) 89 12/08/16 06:01 94 22 104/59 (74) 89 12/08/16 05:46 93 18 96/53 (67) 94 12/08/16 05:46 93 18 96/53 (67) 94 12/08/16 05:31 94 17 87/50 (62) 94 12/08/16 05:31 94 17 87/50 (62) 94 12/08/16 05:16 92 9 94/56 (69) 95 12/08/16 05:16 92 9 94/56 (69) 95 12/08/16 05:01 92 15 86/54 (65) 95 12/08/16 05:01 92 15 86/54 (65) 95 12/08/16 04:46 91 18 85/50 (62) 95 12/08/16 04:31 92 17 82/53 (63) 95 12/08/16 04:31 92 17 82/53 (63) 95 12/08/16 04:16 92 23 96/70 (79) 93 12/08/16 04:16 92 23 96/70 (79) 93 12/08/16 04:02 93 18 90/52 (65) 94 12/08/16 04:02 93 18 90/52 (65) 94 12/08/16 04:00 92 Nasal Cannula 6.0 92 12/08/16 03:46 90 7 111/63 (79) 94 12/08/16 03:46 90 7 111/63 (79) 94 12/08/16 03:31 93 12 95/65 (75) 95 12/08/16 03:31 93 12 95/65 (75) 95 12/08/16 03:16 96 19 109/69 (82) 93 12/08/16 03:16 96 19 109/69 (82) 93 12/08/16 03:01 104 22 116/70 (85) 96 12/08/16 03:01 104 22 116/70 (85) 96 12/08/16 02:46 99 22 100/68 (79) 92 12/08/16 02:46 99 22 100/68 (79) 92 10.0 12/08/16 02:32 102 22 92 Nasal Cannula 5.0 12/08/16 02:31 99 20 114/72 (86) 94 10.0 12/08/16 02:31 99 20 114/72 (86) 94 12/08/16 02:16 100 24 102/65 (77) 88 12/08/16 02:16 100 24 102/65 (77) 88 10.0 12/08/16 02:01 108 26 108/75 (86) 87 12/08/16 02:01 108 26 108/75 (86) 87 10.0 12/08/16 01:47 111 20 129/93 (105) 95 10.0 12/08/16 01:47 111 20 129/93 (105) 95 12/08/16 01:31 97 22 119/71 (87) 92 10.0 12/08/16 01:31 97 22 119/71 (87) 92 12/08/16 01:17 109 27 126/68 (87) 94 10.0 12/08/16 01:17 109 27 126/68 (87) 94 12/08/16 01:01 104 22 123/79 (94) 93 12/08/16 01:01 104 22 123/79 (94) 93 10.0 12/08/16 00:46 105 25 119/72 (88) 92 12/08/16 00:31 105 21 105/69 (81) 95 Oxymask 10.0 12/08/16 00:31 105 21 105/69 (81) 95 12/08/16 00:16 108 22 109/65 (80) 93 Oxymask 10.0 12/08/16 00:16 108 22 109/65 (80) 93 12/08/16 00:01 115/72 (86) 93 Oxymask 10.0 12/08/16 00:00 36.4 115 27 115/72 (86) 93 Oxymask 10.0 12/07/16 23:45 36.4 108 19 121/76 (91) 93 Oxymask 10.0 12/07/16 23:30 36.4 106 17 109/76 (87) 90 Oxymask 10.0 12/07/16 23:30 36.4 106 17 109/76 94 Mask 10.0 12/07/16 23:14 108 18 112/68 (83) 95 Non-Rebreather 100 12/07/16 23:04 110 18 114/68 (83) 95 Non-Rebreather 100 12/07/16 21:17 97 12/07/16 21:16 36.8 98 24 95/71 90 Non-Rebreather 12/07/16 21:15 90 Non-Rebreather 15.0 12/07/16 21:03 90 Non-Rebreather 12/07/16 21:03 90 Non-Rebreather 15.0 General Appearance: well-appearing Head: normocephalic, atraumatic Eyes: PERRLA, no discharge ENT: normal ear exam, other (No JVD no LN) Neck: normal range of motion, no stridor, supple Respiratory: breath sounds normal, other (bilaterally clear air entry) Cardiovasular: regular rate/rhythm (HR in the 90s/min and he has distant sounds but no mumurs or rubs), other (distant heart sounds but no murmurs or rubs) Abdomen: non tender, normal bowel sounds, no masses, other (central obesity) Genitourinary - Male: external genitalia normal Upper Extremities: no edema, other (no hematoma in the R Antecubital fossa) Lower Extremities: no edema, other (Left ankle has +1 non pitting edeam compared to the right) Pulses: carotid (R) (2+), carotid (L) (2+), radial (L) (2+), femoral (R) (2+), dorsalis pedis (R) (2+), dorsalis pedis (L) (2+) Neuro: alert, oriented x 3, normal motor exam, other (decreased sensation both soles) Laboratory Results Last 24 Hours Test 12/07/16 21:06 12/07/16 21:09 12/07/16 21:56 12/07/16 22:35 White Blood Count 11.12 K/uL Red Blood Count 4.76 M/uL Hemoglobin 15.1 g/dL Hematocrit 44.8 % Mean Corpuscular Volume 94.1 fL Mean Corpuscular Hemoglobin 31.7 pg Mean Corpuscular Hemoglobin Concent 33.7 g/dl Platelet Count 279 K/uL Mean Platelet Volume 9.5 fL Neutrophils (%) (Auto) 57.9 % Lymphocytes (%) (Auto) 34.3 % Monocytes (%) (Auto) 4.9 % Eosinophils (%) (Auto) 2.0 % Basophils (%) (Auto) 0.4 % Neutrophils # (Auto) 6.43 K/uL Lymphocytes # (Auto) 3.81 K/uL Monocytes # (Auto) 0.55 K/uL Eosinophils # (Auto) 0.22 K/uL Basophils # (Auto) 0.05 K/uL RDW Standard Deviation 46.0 fL RDW Coefficient of Variation 13.4 % Immature Granulocyte % (Auto) 0.5 % Immature Granulocyte # (Auto) 0.06 K/uL Prothrombin Time 10.6 SECONDS Prothromb Time International Ratio 1.0 Activated Partial Thromboplast Time 22.4 SECONDS Partial Thromboplastin Ratio 0.9 Sodium Level 139 mmol/L Potassium Level 3.4 mmol/L Chloride Level 108 mmol/L Carbon Dioxide Level 16 mmol/L Anion Gap 15.0 mmol/L Blood Urea Nitrogen 19 mg/dl Creatinine 1.80 mg/dl Est Creatinine Clear Calc Drug Dose 36.0 ml/min Estimated GFR () 40.9 Estimated GFR (Non- 35.3 BUN/Creatinine Ratio 10.5 Random Glucose 364 mg/dl Calcium Level 7.9 mg/dl Magnesium Level 2.2 mg/dl Total Bilirubin 0.3 mg/dl Direct Bilirubin 0.1 mg/dl Aspartate Amino Transf (AST/SGOT) 55 U/L Alanine Aminotransferase (ALT/SGPT) 79 U/L Alkaline Phosphatase 127 U/L Total Creatine Kinase 133 U/L Creatine Kinase MB 3.0 ng/ml Creatine Kinase MB Ratio 2.3 Total Protein 6.3 gm/dl Albumin 3.1 gm/dl Lipase 114 U/L Beta-Hydroxybutyric Acid 1.68 mg/dL Bedside Troponin I < 0.030 ng/ml Kaolin Activated Coagulation Time 219 SECONDS 241 SECONDS Test 12/08/16 00:57 12/08/16 01:01 12/08/16 05:55 Arterial Blood pH 7.37 Arterial Blood Partial Pressure CO2 32 mmHg Arterial Blood Partial Pressure O2 69 mm/Hg Arterial Blood HCO3 18 mmol/L Arterial Blood Oxygen Saturation 92.8 % Arterial Blood Base Excess -5.7 mEq/L Arterial Blood Gas Delivery 10 L Neil Test POS Sodium Level 135 mmol/L Potassium Level 4.9 mmol/L Chloride Level 107 mmol/L Carbon Dioxide Level 22 mmol/L Anion Gap 6.0 mmol/L Blood Urea Nitrogen 19 mg/dl Creatinine 1.50 mg/dl Est Creatinine Clear Calc Drug Dose 43.6 ml/min Estimated GFR () 51.0 Estimated GFR (Non- 44.0 BUN/Creatinine Ratio 12.7 Random Glucose 304 mg/dl Estimated Average Glucose 229 mg/dl Hemoglobin A1c 9.6 % Calcium Level 8.3 mg/dl Beta-Hydroxybutyric Acid 7.03 mg/dL Thyroid Stimulating Hormone (TSH) 2.860 uIu/ml Bedside Glucose 286 mg/dl White Blood Count 17.58 K/uL Red Blood Count 4.75 M/uL Hemoglobin 15.4 g/dL Hematocrit 43.2 % Mean Corpuscular Volume 90.9 fL Mean Corpuscular Hemoglobin 32.4 pg Mean Corpuscular Hemoglobin Concent 35.6 g/dl Platelet Count 245 K/uL Mean Platelet Volume 9.5 fL Neutrophils (%) (Auto) 86.5 % Lymphocytes (%) (Auto) 6.3 % Monocytes (%) (Auto) 6.5 % Eosinophils (%) (Auto) 0.1 % Basophils (%) (Auto) 0.1 % Neutrophils # (Auto) 15.22 K/uL Lymphocytes # (Auto) 1.10 K/uL Monocytes # (Auto) 1.14 K/uL Eosinophils # (Auto) 0.02 K/uL Basophils # (Auto) 0.02 K/uL RDW Standard Deviation 44.6 fL RDW Coefficient of Variation 13.5 % Immature Granulocyte % (Auto) 0.5 % Immature Granulocyte # (Auto) 0.08 K/uL Magnesium Level 2.1 mg/dl Troponin I 158.000 ng/ml Diagnostic Results ECG as above CXR 1. Mild cardiomegaly with background interstitial coarsening suggests mild pulmonary edema. 2. Blunting of the costophrenic angles suggests trace pleural effusions or atelectasis. LE venous doppler no evidence of DVT Assessment & Plan 76 yo male with hypertension and poorly controlled DM admitted with STEMI s/p 3 MALICK and now on birlinta, metoprolol and asa as well as 80 mg atorvastating Pain not reported at this time may use morphine 2 mg SC if in pain and will alert cardiology if CP recurs continue O2 at 2lit/mn and titrate to RA as tolerated ASA 81 mg daily Birlinta 90 mg PO BID Atorvastatin 80 mg po daily metoprolol 12,5 mg po given and we are increaing to 25 mg the next dose. Target a HR close to 60 /min and maintain a [id number] mo more after maxing out the betablockers will start claire inhibitor lisinopril and titrate depending on creatinine and to maintain MAP 60-65 mmHg trend troponin until peak last level 158 daily ECG echocardiogram ordered Diet heart healthy and 2 gm Na renal has improved Cr since admission trend CR monitor and replete lytes IVF gentle hydration 40 ml/hr until fully PO DVT prophylaxis heparin 5000 sc q8 ID no foci of infection at this point. endocrine poorly controlled DM will start insulin drip target FS 140-180 no decubiti and no central lines/power Will monitor in MICU x 24 hours. I spent a total f 44 min of CC time managing him which was exclusive of any procedures.
[2016-12-08] MEDS ORDERED: INSULIN REGULAR PUMP SCH (11:45)
[2016-12-08] MEDS ORDERED: INSULIN REGULAR 250 UNITS in SODIUM CHLORIDE 0.9% 250ML 250 ML IV SCH (12:15)
--- NOTE | 2016-12-08 12:42 | Cardiology Follow-Up ---
Subjective Subjective Date of Service: Dec 08, 2016. Pt evaluation today including: conversation w/ patient, conversation w/ family , physical exam, chart review, lab review, review of studies, review of inpatient medication list Additional Details: This morning feeling well. No chest pain. No shortness of breath. No new complaints Relative hypotension this a.m. systolic blood pressures down to the 70-80s started albumin, SBP back to 100s Tele reviewed--episode of nonsustained VT overnight. Reports with amiodarone started on beta-treasure. Problem List Medical Problems: (1) Dehydration Status: Acute (2) Hypoglycemia Status: Acute (3) ST elevation myocardial infarction (STEMI) of inferior wall Status: Acute Review of Systems Constitutional: No fever, No chills ENT: No hearing loss Respiratory: No cough, No sputum Cardiac: No chest pain, No edema Abdomen: No pain, No nausea Skin: No rash Objective Vital Signs Last Vital Signs Documentation Date Time Temp Pulse Resp B/P (MAP) Pulse Ox O2 Delivery O2 Flow Rate FiO2 12/08/16 10:01 94 18 105/66 (79) 93 Nasal Cannula 3.0 12/08/16 08:01 36.4 12/08/16 04:00 92 Physical Exam: General Appearance: no apparent distress ENT: hearing grossly normal Neck: no JVD Respiratory/Chest: lungs clear, normal breath sounds Cardiovascular: no edema, no JVD, no murmur, + tachycardia Abdomen: non tender, soft Extremities: no pedal edema, no calf tenderness, + pertinent finding (Right radial artery--no ecchymosis, hematoma. Intact distal pulses/sensation) Neurologic/Psychiatric: no motor/sensory deficits, alert, normal mood/affect Skin: warm/dry, no rash Assessment and Plan 1. Inferior STEMI--post primary PCI with 3 overlapping drug-eluting stents to RCA 2. Severe residual multivessel disease 3. Post VT/cardiac arrest, nonsustained VT postprocedure 4. Ischemic cardiomyopathy, EF 35-40 percent 5. Chronic kidney disease 6. Prior TIA 7. Type 2 diabetes on insulin Patient chest pain-free this a.m.. Blood pressure responding to volume. Electrically stable since repeat bolus of amiodarone. Reviewed echocardiogram this a.m., moderate to severe LV dysfunction with regional wall motion abnormalities involving the inferior wall, apical anterior and septal oliveira and true apex. IVC flat suggestive of volume depletion. --continue to monitor in ICU today, trend troponins until peaks --continue amiodarone for 48 hours --continue dual antiplatelet therapy with aspirin, ticagrelor --> likely transition to clopidogrel prior to discharge --titrate beta-treasure BP allows. --bolus IV fluids for relative hypotension --will plan to add RAÚL-inhibitor as BP allows potentially tomorrow --continue high-intensity statin --for now plan to medically manage severe residual disease in small circumflex, diagonal. We will continue to follow. Medications: Current Inpatient Medications Medications (Trade) Dose Ordered Sig/Rae Route Start Time Stop Time Status Last Admin Dose Admin Nitroglycerin (Nitrostat Tab) 0.4 mg UD PRN SL 12/08/16 00:00 01/07/17 00:00 Atropine Sulfate (Atropine Sulfate 0.1MG/Ml Inj) 0.5 mg ONE PRN IV 12/08/16 00:00 01/07/17 00:00 Ondansetron HCl (Zofran Inj) 4 mg Q6H PRN IV 12/08/16 00:00 01/07/17 00:00 Aspirin (Ecotrin Tab) 81 mg QAM PO 12/08/16 09:00 01/07/17 08:59 12/08/16 08:45 81 MG Atorvastatin Calcium (Lipitor Tab) 80 mg QAM PO 12/08/16 09:00 01/07/17 08:59 12/08/16 08:44 80 MG Ticagrelor (Brilinta Cap) 90 mg BID PO 12/08/16 09:00 01/07/17 08:59 12/08/16 08:45 90 MG Glucose (Glucose 40% Gel) 15-30 GRAMS 15 GRAMS... UD PRN PO 12/08/16 00:15 01/07/17 00:14 Glucose (Glucose Chew Tab) 4-8 Tablets 4 Tabl... UD PRN PO 12/08/16 00:15 01/07/17 00:14 Dextrose (Dextrose 50% 50ML Syringe) 25-50ML OF 50% DW IV FOR... UD PRN IV 12/08/16 00:15 01/07/17 00:14 Glucagon (Glucagon Inj) 1 mg UD PRN SQ 12/08/16 00:15 01/07/17 00:14 Ipratropium [place] (Atrovent 0.02% 0.5MG/2.5ML Neb) 0.5 mg Q4H PRN INH 12/08/16 00:30 01/07/17 00:29 Levalbuterol (Xopenex 1.25MG/ 0.5ML Neb) 1.25 mg Q4H PRN INH 12/08/16 00:30 01/07/17 00:29 Acetaminophen (Tylenol Tab) 325 mg Q6H PRN PO 12/08/16 03:00 01/07/17 00:00 Amiodarone HCL/ Dextrose 200 ml @ 16.7 mls/hr [id number] IV 12/08/16 09:15 01/07/17 09:14 12/08/16 08:44 16.7 MLS/HR Sodium Chloride 1,000 ml @ 40 mls/hr Q24H IV 12/08/16 09:15 12/09/16 10:00 12/08/16 09:54 40 MLS/HR Metoprolol Tartrate (Lopressor Tab) 25 mg Q12 PO 12/08/16 21:00 01/07/17 08:59 Insulin Human Regular 250 units/ Sodium Chloride 252.5 ml @ 0 mls/hr DAILY@1130 IV 12/08/16 12:15 01/07/17 12:14 Insulin Aspart (novoLOG ASPART) SLIDING SCALE [facility] 12/08/16 17:15 01/07/17 17:14 Lab Results: 12/08/16 05:55 Red Blood Count 4.75, Mean Corpuscular Volume 90.9, Mean Corpuscular Hemoglobin 32.4, Mean Corpuscular Hemoglobin Concent 35.6, Mean Platelet Volume 9.5, Neutrophils (%) (Auto) 86.5, Lymphocytes (%) (Auto) 6.3, Monocytes (%) (Auto) 6.5, Eosinophils (%) (Auto) 0.1, Basophils (%) (Auto) 0.1, Neutrophils # (Auto) 15.22, Lymphocytes # (Auto) 1.10, Monocytes # (Auto) 1.14, Eosinophils # (Auto) 0.02, Basophils # (Auto) 0.02 12/08/16 00:57 Test 12/07/16 21:06 12/07/16 21:09 9/4/17 22:35 12/08/16 00:57 Prothrombin Time 10.6 SECONDS (9.0-12.0) Prothromb Time International Ratio 1.0 (0.9-1.1) Activated Partial Thromboplast Time 22.4 SECONDS (21.0-31.0) Partial Thromboplastin Ratio 0.9 Total Bilirubin 0.3 mg/dl (0.2-1) Direct Bilirubin 0.1 mg/dl (0-0.2) Aspartate Amino Transf (AST/SGOT) 55 U/L (15-37) Alanine Aminotransferase (ALT/SGPT) 79 U/L (12-78) Alkaline Phosphatase 127 U/L (45-117) Total Creatine Kinase 133 U/L (39-308) Creatine Kinase MB 3.0 ng/ml (0.5-3.6) Creatine Kinase MB Ratio 2.3 (0-3.0) Total Protein 6.3 gm/dl (6.4-8.2) Albumin 3.1 gm/dl (3.4-5.0) Lipase 114 U/L (73-393) Bedside Troponin I < 0.030 ng/ml (0-0.045) Kaolin Activated Coagulation Time 241 SECONDS (94-140) Arterial Blood pH 7.37 (7.35-7.45) Arterial Blood Partial Pressure CO2 32 mmHg (35-46) Arterial Blood Partial Pressure O2 69 mm/Hg (80-95) Arterial Blood HCO3 18 mmol/L (19-24) Arterial Blood Oxygen Saturation 92.8 % (90-95) Arterial Blood Base Excess -5.7 mEq/L (-9-1.8) Arterial Blood Gas Delivery 10 L Neil Test POS (POS) Anion Gap 6.0 mmol/L (3-11) Est Creatinine Clear Calc Drug Dose 43.6 ml/min Estimated GFR () 51.0 Estimated GFR (Non- 44.0 BUN/Creatinine Ratio 12.7 (10-20) Estimated Average Glucose 229 mg/dl Hemoglobin A1c 9.6 % (4.5-5.6) Calcium Level 8.3 mg/dl (8.5-10.1) Beta-Hydroxybutyric Acid 7.03 mg/dL (0.2-2.81) Thyroid Stimulating Hormone (TSH) 2.860 uIu/ml (0.300-4.500) Test 12/08/16 05:55 12/08/16 11:14 White Blood Count 17.58 K/uL (4.8-10.8) Red Blood Count 4.75 M/uL (4.7-6.1) Hemoglobin 15.4 g/dL (14.0-18.0) Hematocrit 43.2 % (42-52) Mean Corpuscular Volume 90.9 fL (80-100) Mean Corpuscular Hemoglobin 32.4 pg (25-34) Mean Corpuscular Hemoglobin Concent 35.6 g/dl (32-36) Platelet Count 245 K/uL (130-400) Mean Platelet Volume 9.5 fL (7.4-10.4) Neutrophils (%) (Auto) 86.5 % Lymphocytes (%) (Auto) 6.3 % Monocytes (%) (Auto) 6.5 % Eosinophils (%) (Auto) 0.1 % Basophils (%) (Auto) 0.1 % Neutrophils # (Auto) 15.22 K/uL (1.4-6.5) Lymphocytes # (Auto) 1.10 K/uL (1.2-3.4) Monocytes # (Auto) 1.14 K/uL (0.11-0.59) Eosinophils # (Auto) 0.02 K/uL (0-0.5) Basophils # (Auto) 0.02 K/uL (0-0.2) RDW Standard Deviation 44.6 fL (36.4-46.3) RDW Coefficient of Variation 13.5 % (11.5-14.5) Immature Granulocyte % (Auto) 0.5 % Immature Granulocyte # (Auto) 0.08 K/uL (0.00-0.02) Magnesium Level 2.1 mg/dl (1.8-2.4) Troponin I 158.000 ng/ml (0-0.045) Bedside Glucose 255 mg/dl (70-99) Date/Time Source Procedure Growth Status 12/07/16 23:35 Nasal MRSA DNA Surveillance Screen - Final Specimen Negative for MRSA by DNA Probe Complete
--- NOTE | 2016-12-08 14:51 | ECHOCARDIOGRAM REPORT ---
*NOTICE TO RECEIVING [employer] This information is strictly Confidential and protected under [place] law. [place] law prohibits you from making any further disclosure of this information unless further disclosure is expressly permitted by the written consent of the person to whom it pertains or is authorized by law. A general authorization for the release of medical or other information is not sufficient for this purpose. Hospital accepts no responsibility if the information is made available to any other person, INCLUDING THE PATIENT. Interpretation Summary * Name: XAVI MUÑOZ Study Date: 12/08/2016 08:23 AM BP: 91/64 mmHg * Patient Location: .MSICU\S\E108\S\1 HR: 98 * : 1940 (M/d/yyyy) Gender: Male Height: 71 in * Age: 76 yrs Ethnicity: CA Weight: 192 lb * Ordering Physician: Graeme Pak * Referring Physician: Self, Referred * Performed By: Alysha Garcia RCS * * Reason For Study: AMI * BSA: 2.1 m2 * Moderate left ventricular systolic dysfunction. * Mid to apical inferior,basal septal, apical,posterior hypokinesis. * Left ventricular diastolic dysfunction. * Trace mitral and tricuspid regurgitation. Procedure Details * A complete two-dimensional transthoracic echocardiogram was performed (2D, M-mode, Doppler and color flow Doppler). Left Ventricle * The left ventricle is normal in size. * There is normal left ventricular wall thickness. * Ejection Fraction = 30-35%. * A full diastolic examination was done with clinical findings of Class I diastolic dysfunction. * Left ventricular systolic function is moderately reduced. Right Ventricle * The right ventricle is normal in size and function. * The right ventricular systolic function is normal as assessed by tricuspid annular plane systolic excursion (TAPSE) (normal >1.5 cm). Atria * The left atrial size is normal. * Right atrial size is normal. * No ASD detected; PFO is not assessed. Mitral Valve * The mitral valve is normal. * There is no mitral valve stenosis. * There is trace mitral regurgitation. Tricuspid Valve * The tricuspid valve is not well visualized. * There is no tricuspid stenosis. * There is trace tricuspid regurgitation. * Right ventricular systolic pressure is normal. Aortic Valve * The aortic valve is trileaflet. * The aortic valve opens well. * Aortic stenosis is absent. * No aortic regurgitation is present. Pulmonic Valve * The pulmonic valve is not well visualized. * The pulmonary valve is inadequately visualized, but the Doppler data is adequate for interpretation. * There is no pulmonic valvular stenosis. * There is no pulmonic valvular regurgitation. Great Vessels * Borderline aortic root dilatation. Pericardium/Pleural * There is no pericardial effusion. Great Vessels * Normal inferior vena cava diameter and respiratory variation suggests normal central venous pressure. MMode 2D Measurements and Calculations IVSd 1.1 cm IVSs 1.3 cm LVIDd 4.5 cm LVIDs 3.8 cm LVPWd 1.1 cm LVPWs 1.3 cm IVS/LVPW 0.99 FS 15.8 % EDV(Teich) 90.7 ml ESV(Teich) 60.3 ml EF(Teich) 33.5 % EDV(cubed) 89.0 ml ESV(cubed) 53.0 ml EF(cubed) 40.4 % % IVS thick 17.7 % % LVPW thick 20.0 % LV mass(C)d 175.2 grams LV mass(C)dI 84.6 grams/m\S\2 LV mass(C)s 174.5 grams LV mass(C)sI 84.2 grams/m\S\2 CO(Teich) 2.9 l/min CI(Teich) 1.4 l/min/m\S\2 SV(Teich) 30.4 ml SI(Teich) 14.7 ml/m\S\2 CO(cubed) 3.4 l/min CI(cubed) 1.6 l/min/m\S\2 SV(cubed) 35.9 ml SI(cubed) 17.3 ml/m\S\2 Ao root diam 4.0 cm Ao root area 12.8 cm\S\2 ACS 1.9 cm LA dimension 3.9 cm asc Aorta Diam 3.3 cm LA/Ao 0.96 LVAd ap4 33.2 cm\S\2 LVLd ap4 9.0 cm EDV(MOD-sp4) 100.0 ml LVAs ap4 27.5 cm\S\2 LVLs ap4 8.4 cm ESV(MOD-sp4) 72.0 ml EF(MOD-sp4) 28.0 % LVAd ap2 32.2 cm\S\2 LVLd ap2 8.7 cm EDV(MOD-sp2) 97.0 ml LVAs ap2 26.2 cm\S\2 LVLs ap2 8.7 cm ESV(MOD-sp2) 65.0 ml EF(MOD-sp2) 33.0 % CO(MOD-sp4) 2.7 l/min CI(MOD-sp4) 1.3 l/min/m\S\2 SV(MOD-sp4) 28.0 ml SI(MOD-sp4) 13.5 ml/m\S\2 CO(MOD-sp2) 3.0 l/min CI(MOD-sp2) 1.5 l/min/m\S\2 SV(MOD-sp2) 32.0 ml SI(MOD-sp2) 15.4 ml/m\S\2 Doppler Measurements and Calculations MV E max jhonny 100.9 cm/sec MV A max jhonny 107.4 cm/sec MV E/A 0.94 MV P1/2t max jhonny 107.7 cm/sec MV P1/2t 95.7 msec MVA(P1/2t) 2.3 cm\S\2 MV dec slope 329.9 cm/sec\S\2 MV dec time 0.15 sec Ao V2 max 74.9 cm/sec Ao max PG 2.2 mmHg Ao max PG (full) 1.2 mmHg LV V1 max PG 1.1 mmHg LV V1 max 52.0 cm/sec PA V2 max 97.3 cm/sec PA max PG 3.8 mmHg TR max jhonny 130.3 cm/sec
[2016-12-08] MEDS ORDERED: PHARMACY GLYCEMIC MGMT CONSULT PRN (17:19)
--- NOTE | 2016-12-08 17:29 | Progress Note ---
Medicine Progress Note Date & Time of Visit: Dec 08, 2016 at 16:57. Subjective 76 yo M with uncontrolled diabetes presents with STEMI, s/p defibrillation in the field, ROSC and subsequent MALICK x 3 to 100% occluded RCA. -chest pain-free this morning and feeling well -cath site on R wrist is covered with dressing that is c/d/i-no pain at site -denies SOB or pain elsewhere -tolerating PO -afebrile overnight -NsVT overnight on telemetry Objective Last 8 Hrs Date Time Temp Pulse Resp B/P (MAP) Pulse Ox O2 Delivery O2 Flow Rate FiO2 12/08/16 16:01 36.8 95 25 107/56 (73) 93 Room Air 12/08/16 16:00 Room Air 12/08/16 15:01 93 22 106/61 (76) 94 Room Air 12/08/16 14:01 92 16 90/51 (64) 94 Room Air 12/08/16 13:18 86 18 97/54 (68) 92 Room Air 12/08/16 12:01 36.7 87 16 94/63 (73) 94 Nasal Cannula 3.0 12/08/16 12:00 Nasal Cannula 3.0 12/08/16 11:01 94 14 96/63 (74) 94 Nasal Cannula 3.0 12/08/16 10:01 94 18 105/66 (79) 93 Nasal Cannula 3.0 12/08/16 09:04 92 16 100/54 (69) 94 Nasal Cannula 3.0 Physical Exam: GEN: WNWD, in no acute distress, alert and appropriate. Sitting having breakfast and conversing with his daughter at bedside. HEENT: NC/AT, pupils are equal bilaterally, normal sclerae, MMM CARDIO: reg rate, S1/2 heard without m/g/r LUNGS: CTA bilaterally, no crackles, rales or wheezes, good diaphragmatic excursion ABD: soft, non-tender, non-distended, no rebound or guarding, +BS EXTREMITY: RP and DP palpable 2+ bilat, no LE swelling or edema, extremities are warm and well-perfused NEURO: CN 2-12 grossly intact MUSC: 5/5 strength throughout, no gross focal deficits. SKIN: warm and dry Laboratory Results: 12/08/16 05:55 Red Blood Count 4.75, Mean Corpuscular Volume 90.9, Mean Corpuscular Hemoglobin 32.4, Mean Corpuscular Hemoglobin Concent 35.6, Mean Platelet Volume 9.5, Neutrophils (%) (Auto) 86.5, Lymphocytes (%) (Auto) 6.3, Monocytes (%) (Auto) 6.5, Eosinophils (%) (Auto) 0.1, Basophils (%) (Auto) 0.1, Neutrophils # (Auto) 15.22, Lymphocytes # (Auto) 1.10, Monocytes # (Auto) 1.14, Eosinophils # (Auto) 0.02, Basophils # (Auto) 0.02 12/08/16 00:57 Test 12/07/16 21:06 12/07/16 21:09 12/07/16 22:35 12/08/16 00:57 Prothrombin Time 10.6 SECONDS (9.0-12.0) Prothromb Time International Ratio 1.0 (0.9-1.1) Activated Partial Thromboplast Time 22.4 SECONDS (21.0-31.0) Partial Thromboplastin Ratio 0.9 Total Bilirubin 0.3 mg/dl (0.2-1) Direct Bilirubin 0.1 mg/dl (0-0.2) Aspartate Amino Transf (AST/SGOT) 55 U/L (15-37) Alanine Aminotransferase (ALT/SGPT) 79 U/L (12-78) Alkaline Phosphatase 127 U/L (45-117) Total Creatine Kinase 133 U/L (39-308) Creatine Kinase MB 3.0 ng/ml (0.5-3.6) Creatine Kinase MB Ratio 2.3 (0-3.0) Total Protein 6.3 gm/dl (6.4-8.2) Albumin 3.1 gm/dl (3.4-5.0) Lipase 114 U/L (73-393) Bedside Troponin I < 0.030 ng/ml (0-0.045) Kaolin Activated Coagulation Time 241 SECONDS (94-140) Arterial Blood pH 7.37 (7.35-7.45) Arterial Blood Partial Pressure CO2 32 mmHg (35-46) Arterial Blood Partial Pressure O2 69 mm/Hg (80-95) Arterial Blood HCO3 18 mmol/L (19-24) Arterial Blood Oxygen Saturation 92.8 % (90-95) Arterial Blood Base Excess -5.7 mEq/L (-9-1.8) Arterial Blood Gas Delivery 10 L Neil Test POS (POS) Anion Gap 6.0 mmol/L (3-11) Est Creatinine Clear Calc Drug Dose 43.6 ml/min Estimated GFR () 51.0 Estimated GFR (Non- 44.0 BUN/Creatinine Ratio 12.7 (10-20) Estimated Average Glucose 229 mg/dl Hemoglobin A1c 9.6 % (4.5-5.6) Calcium Level 8.3 mg/dl (8.5-10.1) Beta-Hydroxybutyric Acid 7.03 mg/dL (0.2-2.81) Thyroid Stimulating Hormone (TSH) 2.860 uIu/ml (0.300-4.500) Test 12/08/16 05:55 12/08/16 14:37 12/08/16 16:03 White Blood Count 17.58 K/uL (4.8-10.8) Red Blood Count 4.75 M/uL (4.7-6.1) Hemoglobin 15.4 g/dL (14.0-18.0) Hematocrit 43.2 % (42-52) Mean Corpuscular Volume 90.9 fL (80-100) Mean Corpuscular Hemoglobin 32.4 pg (25-34) Mean Corpuscular Hemoglobin Concent 35.6 g/dl (32-36) Platelet Count 245 K/uL (130-400) Mean Platelet Volume 9.5 fL (7.4-10.4) Neutrophils (%) (Auto) 86.5 % Lymphocytes (%) (Auto) 6.3 % Monocytes (%) (Auto) 6.5 % Eosinophils (%) (Auto) 0.1 % Basophils (%) (Auto) 0.1 % Neutrophils # (Auto) 15.22 K/uL (1.4-6.5) Lymphocytes # (Auto) 1.10 K/uL (1.2-3.4) Monocytes # (Auto) 1.14 K/uL (0.11-0.59) Eosinophils # (Auto) 0.02 K/uL (0-0.5) Basophils # (Auto) 0.02 K/uL (0-0.2) RDW Standard Deviation 44.6 fL (36.4-46.3) RDW Coefficient of Variation 13.5 % (11.5-14.5) Immature Granulocyte % (Auto) 0.5 % Immature Granulocyte # (Auto) 0.08 K/uL (0.00-0.02) Magnesium Level 2.1 mg/dl (1.8-2.4) Troponin I 141.000 ng/ml (0-0.045) Bedside Glucose 217 mg/dl (70-99) Date/Time Source Procedure Growth Status 12/07/16 23:35 Nasal MRSA DNA Surveillance Screen - Final Specimen Negative for MRSA by DNA Probe Complete Last 24 Hours Test 12/07/16 21:06 12/07/16 21:09 12/07/16 21:56 12/07/16 22:35 White Blood Count 11.12 K/uL Red Blood Count 4.76 M/uL Hemoglobin 15.1 g/dL Hematocrit 44.8 % Mean Corpuscular Volume 94.1 fL Mean Corpuscular Hemoglobin 31.7 pg Mean Corpuscular Hemoglobin Concent 33.7 g/dl Platelet Count 279 K/uL Mean Platelet Volume 9.5 fL Neutrophils (%) (Auto) 57.9 % Lymphocytes (%) (Auto) 34.3 % Monocytes (%) (Auto) 4.9 % Eosinophils (%) (Auto) 2.0 % Basophils (%) (Auto) 0.4 % Neutrophils # (Auto) 6.43 K/uL Lymphocytes # (Auto) 3.81 K/uL Monocytes # (Auto) 0.55 K/uL Eosinophils # (Auto) 0.22 K/uL Basophils # (Auto) 0.05 K/uL RDW Standard Deviation 46.0 fL RDW Coefficient of Variation 13.4 % Immature Granulocyte % (Auto) 0.5 % Immature Granulocyte # (Auto) 0.06 K/uL Prothrombin Time 10.6 SECONDS Prothromb Time International Ratio 1.0 Activated Partial Thromboplast Time 22.4 SECONDS Partial Thromboplastin Ratio 0.9 Sodium Level 139 mmol/L Potassium Level 3.4 mmol/L Chloride Level 108 mmol/L Carbon Dioxide Level 16 mmol/L Anion Gap 15.0 mmol/L Blood Urea Nitrogen 19 mg/dl Creatinine 1.80 mg/dl Est Creatinine Clear Calc Drug Dose 36.0 ml/min Estimated GFR () 40.9 Estimated GFR (Non- 35.3 BUN/Creatinine Ratio 10.5 Random Glucose 364 mg/dl Calcium Level 7.9 mg/dl Magnesium Level 2.2 mg/dl Total Bilirubin 0.3 mg/dl Direct Bilirubin 0.1 mg/dl Aspartate Amino Transf (AST/SGOT) 55 U/L Alanine Aminotransferase (ALT/SGPT) 79 U/L Alkaline Phosphatase 127 U/L Total Creatine Kinase 133 U/L Creatine Kinase MB 3.0 ng/ml Creatine Kinase MB Ratio 2.3 Total Protein 6.3 gm/dl Albumin 3.1 gm/dl Lipase 114 U/L Beta-Hydroxybutyric Acid 1.68 mg/dL Bedside Troponin I < 0.030 ng/ml Kaolin Activated Coagulation Time 219 SECONDS 241 SECONDS Test 12/08/16 00:57 12/08/16 01:01 12/08/16 05:55 12/08/16 07:52 Arterial Blood pH 7.37 Arterial Blood Partial Pressure CO2 32 mmHg Arterial Blood Partial Pressure O2 69 mm/Hg Arterial Blood HCO3 18 mmol/L Arterial Blood Oxygen Saturation 92.8 % Arterial Blood Base Excess -5.7 mEq/L Arterial Blood Gas Delivery 10 L Neil Test POS Sodium Level 135 mmol/L Potassium Level 4.9 mmol/L Chloride Level 107 mmol/L Carbon Dioxide Level 22 mmol/L Anion Gap 6.0 mmol/L Blood Urea Nitrogen 19 mg/dl Creatinine 1.50 mg/dl Est Creatinine Clear Calc Drug Dose 43.6 ml/min Estimated GFR () 51.0 Estimated GFR (Non- 44.0 BUN/Creatinine Ratio 12.7 Random Glucose 304 mg/dl Estimated Average Glucose 229 mg/dl Hemoglobin A1c 9.6 % Calcium Level 8.3 mg/dl Beta-Hydroxybutyric Acid 7.03 mg/dL Thyroid Stimulating Hormone (TSH) 2.860 uIu/ml Bedside Glucose 286 mg/dl 207 mg/dl White Blood Count 17.58 K/uL Red Blood Count 4.75 M/uL Hemoglobin 15.4 g/dL Hematocrit 43.2 % Mean Corpuscular Volume 90.9 fL Mean Corpuscular Hemoglobin 32.4 pg Mean Corpuscular Hemoglobin Concent 35.6 g/dl Platelet Count 245 K/uL Mean Platelet Volume 9.5 fL Neutrophils (%) (Auto) 86.5 % Lymphocytes (%) (Auto) 6.3 % Monocytes (%) (Auto) 6.5 % Eosinophils (%) (Auto) 0.1 % Basophils (%) (Auto) 0.1 % Neutrophils # (Auto) 15.22 K/uL Lymphocytes # (Auto) 1.10 K/uL Monocytes # (Auto) 1.14 K/uL Eosinophils # (Auto) 0.02 K/uL Basophils # (Auto) 0.02 K/uL RDW Standard Deviation 44.6 fL RDW Coefficient of Variation 13.5 % Immature Granulocyte % (Auto) 0.5 % Immature Granulocyte # (Auto) 0.08 K/uL Magnesium Level 2.1 mg/dl Troponin I 158.000 ng/ml Test 12/08/16 11:14 12/08/16 13:58 12/08/16 14:37 12/08/16 14:58 Bedside Glucose 255 mg/dl 272 mg/dl 255 mg/dl Troponin I 141.000 ng/ml Test 12/08/16 16:03 Bedside Glucose 217 mg/dl Date/Time Source Procedure Growth Status 12/07/16 23:35 Nasal MRSA DNA Surveillance Screen - Final Specimen Negative for MRSA by DNA Probe Complete Assessment & Plan 76 yo M with uncontrolled diabetes presents with STEMI, s/p defibrillation in the field, ROSC and subsequent MALICK x 3 to 100% occluded RCA. 1. Inferior STEMI post VT arrest-s/p 3 stents to RCA. Currently medically managed in the ICU on amio, ticagrelor, ASA 81, Lipitor, Lopressor. Cards plans to change Ticcagrelor to Plavix prior to discharge add ACEI and titrate BB as blood pressure allows. Defer to them for management. Noted severe residual multivessel disease. 2. Ischemic cardiomyopathy-EF 35-40%. Cont current cardiac management as above. 3. DMII-currently meeting inpatient goals on glargine and novolog with carb coverage. A1C is 9.6. Pt reportedly noncompliant with insulin with barriers to care identified as $ cost of current insulin in addition to timing and how this fits into his schedule (missing doses when he gets home too late in the evening for example). Will work with diabetic nurse educator, pharmacy and case management to figure out a suitable alternative that works for him. ( Later in afternoon was noted to be on insulin drip-diabetic pharmacist aware of outpatient needs.) 4. CKD Stage III-baseline creat 1.8 per inpatient notes-outpatient records are not available for my review. At baseline currently 5. HTN-relative hypotension post procedure and events of yesterday. holding Lasix and Lisinopril. Defer to Cards to add back as BP allows. 6. Leukocytosis 2/2 defibrillation and cath last night DVT prophy-holding post cath overnight. ICU team to consider starting in am. Full code Dispo-cont ICU monitoring Amanda Corcoran DO [facility] Hospitalist Continued [facility] stay due to: abnormal vital signs Discharge planning: uncertain Consultants: Cardio, ICU Current Inpatient Medications: Current Inpatient Medications Medications (Trade) Dose Ordered Sig/Rae Route Start Time Stop Time Status Last Admin Dose Admin Nitroglycerin (Nitrostat Tab) 0.4 mg UD PRN SL 12/08/16 00:00 01/07/17 00:00 Atropine Sulfate (Atropine Sulfate 0.1MG/Ml Inj) 0.5 mg ONE PRN IV 12/08/16 00:00 01/07/17 00:00 Ondansetron HCl (Zofran Inj) 4 mg Q6H PRN IV 12/08/16 00:00 01/07/17 00:00 Aspirin (Ecotrin Tab) 81 mg QAM PO 12/08/16 09:00 01/07/17 08:59 12/08/16 08:45 81 MG Atorvastatin Calcium (Lipitor Tab) 80 mg QAM PO 12/08/16 09:00 01/07/17 08:59 12/08/16 08:44 80 MG Ticagrelor (Brilinta Cap) 90 mg BID PO 12/08/16 09:00 01/07/17 08:59 12/08/16 08:45 90 MG Glucose (Glucose 40% Gel) 15-30 GRAMS 15 GRAMS... UD PRN PO 12/08/16 00:15 01/07/17 00:14 Glucose (Glucose Chew Tab) 4-8 Tablets 4 Tabl... UD PRN PO 12/08/16 00:15 01/07/17 00:14 Dextrose (Dextrose 50% 50ML Syringe) 25-50ML OF 50% DW IV FOR... UD PRN IV 12/08/16 00:15 01/07/17 00:14 Glucagon (Glucagon Inj) 1 mg UD PRN SQ 12/08/16 00:15 01/07/17 00:14 Ipratropium Valentine (Atrovent 0.02% 0.5MG/2.5ML Neb) 0.5 mg Q4H PRN INH 12/08/16 00:30 01/07/17 00:29 Levalbuterol (Xopenex 1.25MG/ 0.5ML Neb) 1.25 mg Q4H PRN INH 12/08/16 00:30 01/07/17 00:29 Acetaminophen (Tylenol Tab) 325 mg Q6H PRN PO 12/08/16 03:00 01/07/17 00:00 Amiodarone HCL/ Dextrose 200 ml @ 16.7 mls/hr [id number] IV 12/08/16 09:15 01/07/17 09:14 12/08/16 08:44 16.7 MLS/HR Sodium Chloride 1,000 ml @ 40 mls/hr Q24H IV 12/08/16 09:15 12/09/16 10:00 12/08/16 09:54 40 MLS/HR Metoprolol Tartrate (Lopressor Tab) 25 mg Q12 PO 12/08/16 21:00 01/07/17 08:59 Insulin Human Regular 250 units/ Sodium Chloride 252.5 ml @ 0 mls/hr DAILY@1130 IV 12/08/16 12:15 01/07/17 12:14 12/08/16 13:31 1.3 MLS/HR Insulin Aspart (novoLOG ASPART) SLIDING SCALE HS SC 12/08/16 17:15 01/07/17 17:14
[2016-12-09] VITALS (16 sets, daily range): BP systolic 95–136; BP diastolic 54–77; PULSE 77–96; TEMP 36.3–37.1; O2SAT 81–98
[2016-12-09 05:43] LABS: BASO % 0.1 %; BASO ABS # 0.01 K/uL (0-0.2); COMPLETE YES; EOS % 0.1 %; HEMATOCRIT 37.2 % (42-52); IG% 0.2 %; LYMPH % 8.3 %; LYMPH ABS # 1.22 K/uL (1.2-3.4); MEAN CELL VOLUME 91.9 fL (80-100); MEAN CORPUSCULAR HEMOGLOBIN 31.4 pg (25-34); MEAN CORPUSCULAR HGB CONC 34.1 g/dl (32-36); MEAN PLATELET VOLUME 9.3 fL (7.4-10.4); MONO % 8.9 %; NEUT % 82.4 %; PLATELET COUNT 210 K/uL (130-400); RED BLOOD COUNT 4.05 M/uL (4.7-6.1); WHITE BLOOD COUNT 14.75 K/uL (4.8-10.8)
[2016-12-09 06:17] LABS: BUN/CREATININE RATIO 16.5 (10-20); CALCIUM 8.3 mg/dl (8.5-10.1); CREATININE 1.7 mg/dl (0.60-1.40); PHOSPHORUS 2.6 mg/dl (2.5-4.9); POTASSIUM 3.9 mmol/L (3.5-5.1)
[2016-12-09] MEDS: INSULIN ASPART 100 UNITS/ML 3 ML PEN SC SCH ×4 (08:33→20:46)
[2016-12-09] MEDS: TICAGRELOR 90 MG TAB PO SCH ×2 (09:05→20:37)
[2016-12-09] MEDS: ASPIRIN 81 MG ECTAB PO SCH (09:05)
[2016-12-09] MEDS: METOPROLOL TARTRATE 50 MG TAB PO SCH ×2 (09:06→20:37)
[2016-12-09] MEDS: ATORVASTATIN 40 MG TAB PO SCH (09:06)
[2016-12-09] MEDS ORDERED: INSULIN GLARGINE SOLOSTAR 100 UNITS/ML 3 ML PEN SC ONE (10:00)
[2016-12-09] MEDS: SODIUM CHLORIDE 0.9% 1000ML 1,000 ML IV SCH (10:26)
--- NOTE | 2016-12-09 14:03 | Cardiology Follow-Up ---
Subjective Subjective Date of Service: Dec 09, 2016. Pt evaluation today including: conversation w/ patient, physical exam, chart review, lab review, review of studies, conversation w/ admissions consultant, review of inpatient medication list Additional Details: Denies chest pain. Denies shortness of breath. No pain at right wrist. Somewhat confused this a.m. Telemetry reviewed-- no recurrent events Problem List Medical Problems: (1) Dehydration Status: Acute (2) Hypoglycemia Status: Acute (3) ST elevation myocardial infarction (STEMI) of inferior wall Status: Acute Review of Systems Constitutional: No fever, No chills ENT: No hearing loss Respiratory: No cough, No sputum Cardiac: No chest pain, No edema Abdomen: No pain, No nausea Skin: No rash Objective Vital Signs Last Vital Signs Documentation Date Time Temp Pulse Resp B/P (MAP) Pulse Ox O2 Delivery O2 Flow Rate FiO2 12/09/16 12:01 36.6 77 26 106/74 (85) 97 Room Air 12/08/16 20:01 92 12/08/16 12:01 3.0 Physical Exam: General Appearance: no apparent distress ENT: hearing grossly normal Neck: no JVD Respiratory/Chest: lungs clear, normal breath sounds Cardiovascular: regular rate, rhythm, no edema, no JVD, no murmur Abdomen: non tender, soft Extremities: no pedal edema, no calf tenderness, + pertinent finding (Right radial artery--no ecchymosis, hematoma. Intact distal pulses/sensation) Neurologic/Psychiatric: no motor/sensory deficits, alert, normal mood/affect Skin: warm/dry, no rash Assessment and Plan 1. Inferior STEMI--post primary PCI with 3 overlapping drug-eluting stents to RCA 2. Severe residual multivessel disease 3. Post VT/cardiac arrest, nonsustained VT postprocedure 4. Ischemic cardiomyopathy, EF 35% 5. Chronic kidney disease 6. Prior TIA 7. Type 2 diabetes on insulin Patient remains chest pain free. He is hemodynamically and electrically stable. Troponin has peaked. Today appears well perfused without significant congestion. --from a cardiac standpoint okay for transfer to telemetry today --continue amiodarone for 48 hours, can discontinue tomorrow --continue dual antiplatelet therapy with aspirin, ticagrelor --> likely transition to clopidogrel prior to discharge --titrate beta-treasure BP allows. --can add low-dose lisinopril today --continue high-intensity statin --medical management of severe residual disease in small circumflex, diagonal. We will continue to follow. Continued [facility] stay due to: abnormal vital signs Discharge planning: uncertain Medications: Current Inpatient Medications Medications (Trade) Dose Ordered Sig/Rea Route Start Time Stop Time Status Last Admin Dose Admin Nitroglycerin (Nitrostat Tab) 0.4 mg UD PRN SL 12/08/16 00:00 01/07/17 00:00 Atropine Sulfate (Atropine Sulfate 0.1MG/Ml Inj) 0.5 mg ONE PRN IV 12/08/16 00:00 01/07/17 00:00 Ondansetron HCl (Zofran Inj) 4 mg Q6H PRN IV 12/08/16 00:00 01/07/17 00:00 Aspirin (Ecotrin Tab) 81 mg QAM PO 12/08/16 09:00 01/07/17 08:59 12/09/16 09:05 81 MG Atorvastatin Calcium (Lipitor Tab) 80 mg QAM PO 12/08/16 09:00 01/07/17 08:59 12/09/16 09:06 80 MG Ticagrelor (Brilinta Cap) 90 mg BID PO 12/08/16 09:00 01/07/17 08:59 12/09/16 09:05 90 MG Glucose (Glucose 40% Gel) 15-30 GRAMS 15 GRAMS... UD PRN PO 12/08/16 00:15 01/07/17 00:14 Glucose (Glucose Chew Tab) 4-8 Tablets 4 Tabl... UD PRN PO 12/08/16 00:15 01/07/17 00:14 Dextrose (Dextrose 50% 50ML Syringe) 25-50ML OF 50% DW IV FOR... UD PRN IV 12/08/16 00:15 01/07/17 00:14 Glucagon (Glucagon Inj) 1 mg UD PRN SQ 12/08/16 00:15 01/07/17 00:14 Ipratropium Waldo (Atrovent 0.02% 0.5MG/2.5ML Neb) 0.5 mg Q4H PRN INH 12/08/16 00:30 01/07/17 00:29 Levalbuterol (Xopenex 1.25MG/ 0.5ML Neb) 1.25 mg Q4H PRN INH 12/08/16 00:30 01/07/17 00:29 Acetaminophen (Tylenol Tab) 325 mg Q6H PRN PO 12/08/16 03:00 01/07/17 00:00 Amiodarone HCL/ Dextrose 200 ml @ 16.7 mls/hr [id number] IV 12/08/16 09:15 01/07/17 09:14 12/08/16 19:37 16.7 MLS/HR Miscellaneous Information (Consult Glycemic Management Pharmacy) 1 ea UD PRN N/A 12/08/16 17:19 01/07/17 17:18 Metoprolol Tartrate (Lopressor Tab) 50 mg Q12 PO 12/09/16 09:00 01/07/17 08:59 12/09/16 09:06 50 MG Insulin Aspart (novoLOG ASPART) SLIDING SCALE ACHS SC 12/09/16 11:00 01/08/17 10:59 12/09/16 11:49 3 UNITS Lab Results: 12/09/16 05:27 Red Blood Count 4.05, Mean Corpuscular Volume 91.9, Mean Corpuscular Hemoglobin 31.4, Mean Corpuscular Hemoglobin Concent 34.1, Mean Platelet Volume 9.3, Neutrophils (%) (Auto) 82.4, Lymphocytes (%) (Auto) 8.3, Monocytes (%) (Auto) 8.9, Eosinophils (%) (Auto) 0.1, Basophils (%) (Auto) 0.1, Neutrophils # (Auto) 12.16, Lymphocytes # (Auto) 1.22, Monocytes # (Auto) 1.32, Eosinophils # (Auto) 0.01, Basophils # (Auto) 0.01 12/09/16 05:27 Test 12/08/16 22:14 12/09/16 05:27 12/09/16 11:23 Troponin I 111.000 ng/ml (0-0.045) White Blood Count 14.75 K/uL (4.8-10.8) Red Blood Count 4.05 M/uL (4.7-6.1) Hemoglobin 12.7 g/dL (14.0-18.0) Hematocrit 37.2 % (42-52) Mean Corpuscular Volume 91.9 fL (80-100) Mean Corpuscular Hemoglobin 31.4 pg (25-34) Mean Corpuscular Hemoglobin Concent 34.1 g/dl (32-36) Platelet Count 210 K/uL (130-400) Mean Platelet Volume 9.3 fL (7.4-10.4) Neutrophils (%) (Auto) 82.4 % Lymphocytes (%) (Auto) 8.3 % Monocytes (%) (Auto) 8.9 % Eosinophils (%) (Auto) 0.1 % Basophils (%) (Auto) 0.1 % Neutrophils # (Auto) 12.16 K/uL (1.4-6.5) Lymphocytes # (Auto) 1.22 K/uL (1.2-3.4) Monocytes # (Auto) 1.32 K/uL (0.11-0.59) Eosinophils # (Auto) 0.01 K/uL (0-0.5) Basophils # (Auto) 0.01 K/uL (0-0.2) RDW Standard Deviation 45.8 fL (36.4-46.3) RDW Coefficient of Variation 13.9 % (11.5-14.5) Immature Granulocyte % (Auto) 0.2 % Immature Granulocyte # (Auto) 0.03 K/uL (0.00-0.02) Anion Gap 8.0 mmol/L (3-11) Est Creatinine Clear Calc Drug Dose 38.6 ml/min Estimated GFR () 43.8 Estimated GFR (Non- 37.8 BUN/Creatinine Ratio 16.5 (10-20) Calcium Level 8.3 mg/dl (8.5-10.1) Phosphorus Level 2.6 mg/dl (2.5-4.9) Magnesium Level 2.0 mg/dl (1.8-2.4) Bedside Glucose 195 mg/dl (70-99)
[2016-12-09] MEDS ORDERED: INSULIN ASPART 100 UNITS/ML 3 ML PEN SC ONE (14:15)
--- NOTE | 2016-12-09 14:30 | Pharmacy Progress Note ---
Glycemic Control Intl Consult Date of Service Dec 09, 2016. Scope Glycemic Pharmacist consulted by Dr Corcoran on 12/08/16 for glycemic control and to write orders per [facility] inpatient glycemic control protocol. Objective Weight (Kilograms): 87.900 Accuchecks BSG (last 24hrs): Test 12/08/16 14:58 12/08/16 16:03 12/08/16 17:50 12/08/16 19:08 Bedside Glucose 255 mg/dl (70-99) 217 mg/dl (70-99) 259 mg/dl (70-99) 221 mg/dl (70-99) Test 12/08/16 20:03 12/08/16 20:59 12/08/16 21:59 12/08/16 23:00 Bedside Glucose 169 mg/dl (70-99) 209 mg/dl (70-99) 145 mg/dl (70-99) 131 mg/dl (70-99) Test 12/09/16 00:01 12/09/16 01:02 12/09/16 03:07 12/09/16 05:11 Bedside Glucose 118 mg/dl (70-99) 138 mg/dl (70-99) 106 mg/dl (70-99) 89 mg/dl (70-99) Test 12/09/16 05:27 12/09/16 06:09 12/09/16 07:02 12/09/16 08:33 Random Glucose 89 mg/dl (70-99) Bedside Glucose 92 mg/dl (70-99) 102 mg/dl (70-99) 189 mg/dl (70-99) Test 12/09/16 10:00 12/09/16 11:23 Bedside Glucose 184 mg/dl (70-99) 195 mg/dl (70-99) Laboratory Data (last 24hrs) Test 12/09/16 05:27 Anion Gap 8.0 mmol/L BUN/Creatinine Ratio 16.5 Blood Urea Nitrogen 28 mg/dl Creatinine 1.70 mg/dl Potassium Level 3.9 mmol/L Sodium Level 141 mmol/L White Blood Count 14.75 K/uL Red Blood Count 4.05 M/uL Hemoglobin 12.7 g/dL Hematocrit 37.2 % Mean Corpuscular Volume 91.9 fL Mean Corpuscular Hemoglobin 31.4 pg Mean Corpuscular Hemoglobin Concent 34.1 g/dl Platelet Count 210 K/uL Mean Platelet Volume 9.3 fL Neutrophils (%) (Auto) 82.4 % Lymphocytes (%) (Auto) 8.3 % Monocytes (%) (Auto) 8.9 % Eosinophils (%) (Auto) 0.1 % Basophils (%) (Auto) 0.1 % Neutrophils # (Auto) 12.16 K/uL Lymphocytes # (Auto) 1.22 K/uL Monocytes # (Auto) 1.32 K/uL Eosinophils # (Auto) 0.01 K/uL Basophils # (Auto) 0.01 K/uL HbA1c Test 12/08/16 00:57 Hemoglobin A1c 9.6 % (4.5-5.6) H Recent Pertinent Medications Outpatient Anti-diabetic Regimen: * Humalog 75/25 30 units SQ BID * Metformin 500mg PO daily Patient is non-compliant with anti-DM meds, d/t cost * A1c = 9.6 % (12/08/16) The patient is currently receiving: * IV insulin infusion Risk Factors for Insulin Resistance: * IVF: amiodarone gtt, NS @ 40mL/hr * Diet: Type 2 DM/AHA diet Assessment & Plan ASSESSMENT: * Mr Russell is a 76yo gentleman who was started on an insulin infusion yesterday d/t hyperglycemia. * He does not comply with his outpatient DM meds d/t the cost of them. Diabetic educators have been consulted. * BSGs were much improved overnight, so patient was started on SQ insulin today. Would have a low threshold to re-start infusion if BSGs become unstable , as this is standard of care for ICU patients. * ADA & AACE recommend a goal blood sugar range 140-180 mg/dl for the majority of critically ill & non-critically ill patients. However, more stringent targets may be selected in individual cases. PLAN FOR INPATIENT GLYCEMIC CONTROL: * Holding outpatient oral diabetes medications * Basal insulin with LANTUS 20 units SQ x1 dose, then BID per scale: * Lantus 8 units SQ for BSG less than 140mg/dL * Lantus 15 units SQ for BSG 140-180 mg/dL * Lantus 22 units SQ for BSG greater than 180 mg/dL * Correctional Insulin with NOVOLOG per scale ACHS plus 0000 and 0400, until BSGs stable * Goal Range: Low 140 mg/dL - High 180 mg/dL * Correction Factor: 25 mg/dL/unit * Nutritional / Prandial insulin per carb ratio of 1 unit per 10 grams CHO consumed * Extra 5 units of Novolog x1 dose at 1430 for BSG 213 * Please note that the plan above was derived based on current level of insulin resistance and hospital stress. These recommendations are appropriate for inpatient admission only. Plan of care upon discharge will need to be reassessed to avoid potential outpatient hypo/hyperglycemia. Thank you.
[2016-12-09] MEDS: AMIODARONE / D5W 200 ML IV SCH (16:53)
--- NOTE | 2016-12-09 17:20 | Progress Note ---
Medicine Progress Note Date & Time of Visit: Dec 09, 2016 at 17:11. Subjective tolerating PO delirium overnight lucid now. denies CP or SOB no telemetry events overnight per Cardiology insulin drip overnight and now back on SQ insulin Objective Last 8 Hrs Date Time Temp Pulse Resp B/P (MAP) Pulse Ox O2 Delivery O2 Flow Rate FiO2 12/09/16 16:11 36.3 77 20 115/68 (84) 96 Room Air 12/09/16 16:00 Room Air 12/09/16 14:01 78 19 113/68 (83) 96 Room Air 12/09/16 12:01 36.6 77 26 106/74 (85) 97 Room Air 12/09/16 12:00 Room Air 12/09/16 10:01 87 17 99/57 (71) 98 Room Air Physical Exam: GEN: WNWD, in no acute distress, alert and appropriate. Sitting having dinner. HEENT: NC/AT, pupils are equal bilaterally, normal sclerae, MMM CARDIO: reg rate, S1/2 heard without m/g/r, no edema. LUNGS: CTA bilaterally, no crackles, rales or wheezes, good diaphragmatic excursion ABD: soft, non-tender, non-distended, no rebound or guarding, +BS EXTREMITY: RP and DP palpable 2+ bilat, no LE swelling or edema, extremities are warm and well-perfused. R radial wrist intact and no bruising or issues with cath site. NEURO: CN 2-12 grossly intact MUSC: 5/5 strength throughout, no gross focal deficits. SKIN: warm and dry Laboratory Results: 12/09/16 05:27 Red Blood Count 4.05, Mean Corpuscular Volume 91.9, Mean Corpuscular Hemoglobin 31.4, Mean Corpuscular Hemoglobin Concent 34.1, Mean Platelet Volume 9.3, Neutrophils (%) (Auto) 82.4, Lymphocytes (%) (Auto) 8.3, Monocytes (%) (Auto) 8.9, Eosinophils (%) (Auto) 0.1, Basophils (%) (Auto) 0.1, Neutrophils # (Auto) 12.16, Lymphocytes # (Auto) 1.22, Monocytes # (Auto) 1.32, Eosinophils # (Auto) 0.01, Basophils # (Auto) 0.01 9/6/17 05:27 Test 12/07/16 21:06 12/07/16 21:09 12/07/16 22:35 12/08/16 00:57 Prothrombin Time 10.6 SECONDS (9.0-12.0) Prothromb Time International Ratio 1.0 (0.9-1.1) Activated Partial Thromboplast Time 22.4 SECONDS (21.0-31.0) Partial Thromboplastin Ratio 0.9 Total Bilirubin 0.3 mg/dl (0.2-1) Direct Bilirubin 0.1 mg/dl (0-0.2) Aspartate Amino Transf (AST/SGOT) 55 U/L (15-37) Alanine Aminotransferase (ALT/SGPT) 79 U/L (12-78) Alkaline Phosphatase 127 U/L (45-117) Total Creatine Kinase 133 U/L (39-308) Creatine Kinase MB 3.0 ng/ml (0.5-3.6) Creatine Kinase MB Ratio 2.3 (0-3.0) Total Protein 6.3 gm/dl (6.4-8.2) Albumin 3.1 gm/dl (3.4-5.0) Lipase 114 U/L (73-393) Bedside Troponin I < 0.030 ng/ml (0-0.045) Kaolin Activated Coagulation Time 241 SECONDS (94-140) Arterial Blood pH 7.37 (7.35-7.45) Arterial Blood Partial Pressure CO2 32 mmHg (35-46) Arterial Blood Partial Pressure O2 69 mm/Hg (80-95) Arterial Blood HCO3 18 mmol/L (19-24) Arterial Blood Oxygen Saturation 92.8 % (90-95) Arterial Blood Base Excess -5.7 mEq/L (-9-1.8) Arterial Blood Gas Delivery 10 L Neil Test POS (POS) Estimated Average Glucose 229 mg/dl Hemoglobin A1c 9.6 % (4.5-5.6) Beta-Hydroxybutyric Acid 7.03 mg/dL (0.2-2.81) Thyroid Stimulating Hormone (TSH) 2.860 uIu/ml (0.300-4.500) Test 12/08/16 22:14 12/09/16 05:27 12/09/16 16:19 Troponin I 111.000 ng/ml (0-0.045) White Blood Count 14.75 K/uL (4.8-10.8) Red Blood Count 4.05 M/uL (4.7-6.1) Hemoglobin 12.7 g/dL (14.0-18.0) Hematocrit 37.2 % (42-52) Mean Corpuscular Volume 91.9 fL (80-100) Mean Corpuscular Hemoglobin 31.4 pg (25-34) Mean Corpuscular Hemoglobin Concent 34.1 g/dl (32-36) Platelet Count 210 K/uL (130-400) Mean Platelet Volume 9.3 fL (7.4-10.4) Neutrophils (%) (Auto) 82.4 % Lymphocytes (%) (Auto) 8.3 % Monocytes (%) (Auto) 8.9 % Eosinophils (%) (Auto) 0.1 % Basophils (%) (Auto) 0.1 % Neutrophils # (Auto) 12.16 K/uL (1.4-6.5) Lymphocytes # (Auto) 1.22 K/uL (1.2-3.4) Monocytes # (Auto) 1.32 K/uL (0.11-0.59) Eosinophils # (Auto) 0.01 K/uL (0-0.5) Basophils # (Auto) 0.01 K/uL (0-0.2) RDW Standard Deviation 45.8 fL (36.4-46.3) RDW Coefficient of Variation 13.9 % (11.5-14.5) Immature Granulocyte % (Auto) 0.2 % Immature Granulocyte # (Auto) 0.03 K/uL (0.00-0.02) Anion Gap 8.0 mmol/L (3-11) Est Creatinine Clear Calc Drug Dose 38.6 ml/min Estimated GFR () 43.8 Estimated GFR (Non- 37.8 BUN/Creatinine Ratio 16.5 (10-20) Calcium Level 8.3 mg/dl (8.5-10.1) Phosphorus Level 2.6 mg/dl (2.5-4.9) Magnesium Level 2.0 mg/dl (1.8-2.4) Bedside Glucose 190 mg/dl (70-99) Date/Time Source Procedure Growth Status 12/07/16 23:35 Nasal MRSA DNA Surveillance Screen - Final Specimen Negative for MRSA by DNA Probe Complete Last 24 Hours Test 12/08/16 17:50 12/08/16 19:08 12/08/16 20:03 12/08/16 20:59 Bedside Glucose 259 mg/dl 221 mg/dl 169 mg/dl 209 mg/dl Test 12/08/16 21:59 12/08/16 22:14 12/08/16 23:00 12/09/16 00:01 Bedside Glucose 145 mg/dl 131 mg/dl 118 mg/dl Troponin I 111.000 ng/ml Test 12/09/16 01:02 12/09/16 03:07 12/09/16 05:11 12/09/16 05:27 Bedside Glucose 138 mg/dl 106 mg/dl 89 mg/dl White Blood Count 14.75 K/uL Red Blood Count 4.05 M/uL Hemoglobin 12.7 g/dL Hematocrit 37.2 % Mean Corpuscular Volume 91.9 fL Mean Corpuscular Hemoglobin 31.4 pg Mean Corpuscular Hemoglobin Concent 34.1 g/dl Platelet Count 210 K/uL Mean Platelet Volume 9.3 fL Neutrophils (%) (Auto) 82.4 % Lymphocytes (%) (Auto) 8.3 % Monocytes (%) (Auto) 8.9 % Eosinophils (%) (Auto) 0.1 % Basophils (%) (Auto) 0.1 % Neutrophils # (Auto) 12.16 K/uL Lymphocytes # (Auto) 1.22 K/uL Monocytes # (Auto) 1.32 K/uL Eosinophils # (Auto) 0.01 K/uL Basophils # (Auto) 0.01 K/uL RDW Standard Deviation 45.8 fL RDW Coefficient of Variation 13.9 % Immature Granulocyte % (Auto) 0.2 % Immature Granulocyte # (Auto) 0.03 K/uL Sodium Level 141 mmol/L Potassium Level 3.9 mmol/L Chloride Level 110 mmol/L Carbon Dioxide Level 23 mmol/L Anion Gap 8.0 mmol/L Blood Urea Nitrogen 28 mg/dl Creatinine 1.70 mg/dl Est Creatinine Clear Calc Drug Dose 38.6 ml/min Estimated GFR () 43.8 Estimated GFR (Non- 37.8 BUN/Creatinine Ratio 16.5 Random Glucose 89 mg/dl Calcium Level 8.3 mg/dl Phosphorus Level 2.6 mg/dl Magnesium Level 2.0 mg/dl Test 12/09/16 06:09 12/09/16 07:02 12/09/16 08:33 12/09/16 10:00 Bedside Glucose 92 mg/dl 102 mg/dl 189 mg/dl 184 mg/dl Test 12/09/16 11:23 12/09/16 16:19 Bedside Glucose 195 mg/dl 190 mg/dl Assessment & Plan 76 yo M with uncontrolled diabetes presents with STEMI, s/p defibrillation in the field, ROSC and subsequent MALICK x 3 to 100% occluded RCA. HD #2 1. Inferior STEMI post VT arrest-s/p 3 stents to RCA. Currently medically managed in the ICU on amio drip for 48 hours, ticagrelor, ASA 81, Lipitor, Lopressor. No events on telemetry and pt denies chest pain. Cards plans to change Ticcagrelor to Plavix prior to discharge add ACEI and titrate BB as blood pressure allows. Defer to them for management. Noted severe residual multivessel disease. 2. Ischemic cardiomyopathy-EF 35-40%. Cont current cardiac management as above. Cont daily weights. 3. DMII-currently meeting inpatient goals on glargine and novolog with carb coverage. Required an insulin drip overnight and pharmacy is assisting with management overnight. A1C is 9.6. Pt reportedly noncompliant with insulin with barriers to care identified as $ cost of current insulin in addition to timing and how this fits into his schedule (missing doses when he gets home too late in the evening for example). Will continue working with diabetic nurse educator , pharmacy and case management to figure out a suitable alternative that works for him. 4. CKD Stage III-baseline creat 1.8 per inpatient notes-outpatient records are not available for my review. Continues at baseline with a small increase overnight, likely related to contrast during cath. Cont to monitor. 5. HTN-relative hypotension post procedure which has improved somewhat. Cont holding Lasix and Lisinopril. Defer to Cards to add back as BP allows. 6. Leukocytosis 2/2 defibrillation and cath last night-improved. 7. Delirium-currently is appropriate but had ICU-associated delirium overnight requiring 1:1. Doing well currently so will order q15 minute checks and bed alarm. Family made aware of situation overnight and all concerns they had were addressed. DVT prophy-Heparin SQ Full code Dispo-transfer to telemetry floor, uncertain dispo to home. May need rehab with delirium, etc. Will cont to monitor. [facility] Contin[facility] stay due to: abnormal vital signs Discharge planning: uncertain Consultants: Cardio, ICU Current Inpatient Medications: Current Inpatient Medications Medications (Trade) Dose Ordered Sig/Rae Route Start Time Stop Time Status Last Admin Dose Admin Nitroglycerin (Nitrostat Tab) 0.4 mg UD PRN SL 12/08/16 00:00 01/07/17 00:00 Atropine Sulfate (Atropine Sulfate 0.1MG/Ml Inj) 0.5 mg ONE PRN IV 12/08/16 00:00 01/07/17 00:00 Ondansetron HCl (Zofran Inj) 4 mg Q6H PRN IV 12/08/16 00:00 01/07/17 00:00 Aspirin (Ecotrin Tab) 81 mg QAM PO 12/08/16 09:00 01/07/17 08:59 12/09/16 09:05 81 MG Atorvastatin Calcium (Lipitor Tab) 80 mg QAM PO 12/08/16 09:00 01/07/17 08:59 12/09/16 09:06 80 MG Ticagrelor (Brilinta Cap) 90 mg BID PO 12/08/16 09:00 01/07/17 08:59 12/09/16 09:05 90 MG Glucose (Glucose 40% Gel) 15-30 GRAMS 15 GRAMS... UD PRN PO 12/08/16 00:15 01/07/17 00:14 Glucose (Glucose Chew Tab) 4-8 Tablets 4 Tabl... UD PRN PO 12/08/16 00:15 01/07/17 00:14 Dextrose (Dextrose 50% 50ML Syringe) 25-50ML OF 50% DW IV FOR... UD PRN IV 12/08/16 00:15 01/07/17 00:14 Glucagon (Glucagon Inj) 1 mg UD PRN SQ 12/08/16 00:15 01/07/17 00:14 Ipratropium [place] (Atrovent 0.02% 0.5MG/2.5ML Neb) 0.5 mg Q4H PRN INH 12/08/16 00:30 01/07/17 00:29 Levalbuterol (Xopenex 1.25MG/ 0.5ML Neb) 1.25 mg Q4H PRN INH 12/08/16 00:30 01/07/17 00:29 Acetaminophen (Tylenol Tab) 325 mg Q6H PRN PO 12/08/16 03:00 01/07/17 00:00 Amiodarone HCL/ Dextrose 200 ml @ 16.7 mls/hr [id number] IV 12/08/16 09:15 01/07/17 09:14 12/09/16 16:53 16.7 MLS/HR Miscellaneous Information (Consult Glycemic Management Pharmacy) 1 ea UD PRN N/A 12/08/16 17:19 01/07/17 17:18 Metoprolol Tartrate (Lopressor Tab) 50 mg Q12 PO 12/09/16 09:00 01/07/17 08:59 12/09/16 09:06 50 MG Insulin Aspart (novoLOG ASPART) SLIDING SCALE ACHS SC 12/09/16 11:00 01/08/17 10:59 12/09/16 16:54 5 UNITS Insulin Glargine (Lantus Solostar Pen) See Protocol Text BID SC 12/09/16 21:00 01/08/17 20:59 Insulin Aspart (novoLOG ASPART) SLIDING SCALE 0000,0400 SC 12/10/16 00:00 01/09/17 00:00
[2016-12-09] MEDS: INSULIN GLARGINE SOLOSTAR 100 UNITS/ML 3 ML PEN SC SCH (20:47)
[2016-12-09] MEDS: HEPARIN SOD 5000 UNIT/0.5 ML CARP SQ SCH (22:25)
[2016-12-10] VITALS (20 sets, daily range): BP systolic 112–175; BP diastolic 57–109; PULSE 71–103; TEMP 36.4–37.5; O2SAT 89–98
[2016-12-10] MEDS: INSULIN ASPART 100 UNITS/ML 3 ML PEN SC SCH ×6 (00:11→21:21)
[2016-12-10] MEDS: AMIODARONE / D5W 200 ML IV SCH ×2 (04:07→16:33)
[2016-12-10] MEDS: HEPARIN SOD 5000 UNIT/0.5 ML CARP SQ SCH ×2 (06:10→12:59)
[2016-12-10] MEDS ORDERED: FUROSEMIDE INJ 40 MG in SYRINGE 0 ML IV STA (06:10)
[2016-12-10] MEDS ORDERED: IPRATROPIUM BROMIDE NEB SOLN 0.02% 2.5 ML VIAL INH STA (06:11)
[2016-12-10] MEDS ORDERED: LEVALBUTEROL 1.25MG/0.5ML NEB INH STA (06:11)
[2016-12-10] MEDS ORDERED: LEVALBUTEROL/IPRATROPIUM NEB INH SCH ×2 (06:15→09:00)
[2016-12-10 06:16] LABS: BASO % 0.1 %; BASO ABS # 0.02 K/uL (0-0.2); COMPLETE YES; HEMATOCRIT 42.7 % (42-52); IG% 0.4 %; LYMPH % 6.4 %; LYMPH ABS # 1.28 K/uL (1.2-3.4); MEAN CELL VOLUME 92.4 fL (80-100); MEAN CORPUSCULAR HEMOGLOBIN 31.8 pg (25-34); MEAN CORPUSCULAR HGB CONC 34.4 g/dl (32-36); MONO % 10.4 %; NEUT % 82.7 %; PLATELET COUNT 257 K/uL (130-400); RED BLOOD COUNT 4.62 M/uL (4.7-6.1); WHITE BLOOD COUNT 20.07 K/uL (4.8-10.8)
[2016-12-10] MEDS ORDERED: FUROSEMIDE 40 MG/4 ML VIAL ONE (06:17)
--- NOTE | 2016-12-10 06:28 | DIAGNOSTIC IMAGING REPORT ---
CHEST ONE VIEW PORTABLE CLINICAL HISTORY: hypoxia, r/o car conditioner dyspnea COMPARISON STUDY: 08/06/2016 FINDINGS: Moderate cardiomegaly. Moderate increased prominence of pulmonary vasculature. Diaphragms are smooth. Costophrenic angles are sharp. IMPRESSION: Congestive failure somewhat progressive from the prior exam. The above report was generated using voice recognition software. It may contain grammatical, syntax or spelling errors. Electronically signed by: Davin House M.D. 12/10/2016 6:27 AM Dictated Date/Time: 12/10/2016 6:26 AM
[2016-12-10 06:42] LABS: BUN/CREATININE RATIO 18.5 (10-20); CALCIUM 8.7 mg/dl (8.5-10.1); CREATININE 1.7 mg/dl (0.60-1.40); MAGNESIUM 2.1 mg/dl (1.8-2.4); POTASSIUM 4.2 mmol/L (3.5-5.1)
--- NOTE | 2016-12-10 06:43 | Progress Note ---
Progress Note Date of Service Dec 10, 2016. Progress Note called by SHERRY Ruano as patient was tachypneic, with labored breathing after being bathed saw patient at bedside, on 6 liters NC with o2 sats 87% tachypneic, (+) accessory muscle use, speaks in phrases with effort (+) rales bilaterally (+) fluid balance stat nebs, CXR, ABG ordered CXR showing progression of pulmonary congestion/edema Lasix 40mg IV stat ordered, Hoffmann cath ordered after nebs, patient was still tachypneic, Bipap ordered patient tolerating well states his breathing is "a lot better" tachypnea improving will sign out to Dr. Nilo Mansfiled MD
[2016-12-10 06:53] LABS: ARTERIAL BLD GAS O2 SATURATION 95.9 % (90-95); ARTERIAL BLOOD GAS BASE EXCESS -5.3 mEq/L (-9-1.8); ARTERIAL BLOOD GAS HCO3 19 mmol/L (19-24); ARTERIAL BLOOD GAS PO2 82 mm/Hg (80-95); ARTERIAL BLOOD GAS pH 7.39 (7.35-7.45)
[2016-12-10 06:54] LABS: ALLEN TEST POS (POS)
[2016-12-10] MEDS: ATORVASTATIN 40 MG TAB PO SCH (07:25)
[2016-12-10] MEDS: ASPIRIN 81 MG ECTAB PO SCH (07:25)
[2016-12-10] MEDS: METOPROLOL TARTRATE 50 MG TAB PO SCH ×2 (07:25→21:16)
[2016-12-10] MEDS: INSULIN GLARGINE SOLOSTAR 100 UNITS/ML 3 ML PEN SC SCH (07:27)
[2016-12-10] MEDS: TICAGRELOR 90 MG TAB PO SCH ×2 (08:01→21:15)
[2016-12-10] MEDS: IPRATROPIUM BROMIDE NEB SOLN 0.02% 2.5 ML VIAL INH SCH ×2 (09:00→14:41)
[2016-12-10] MEDS: LEVALBUTEROL 1.25MG/0.5ML NEB INH SCH ×2 (09:00→14:41)
--- NOTE | 2016-12-10 11:44 | Cardiology Follow-Up ---
Subjective Subjective Date of Service: Dec 10, 2016. Pt evaluation today including: conversation w/ patient, conversation w/ family , physical exam, chart review, lab review, review of studies, review of inpatient medication list Additional Details: Acute dyspnea overnight. Responded to IV lasix. This morning denies chest pain or shortness of breath. No other new complaints. [place] urine in power. Tele Reviewed -- no events Problem List Medical Problems: (1) Dehydration Status: Acute (2) Hypoglycemia Status: Acute (3) ST elevation myocardial infarction (STEMI) of inferior wall Status: Acute Review of Systems Constitutional: No fever, No chills ENT: No hearing loss Respiratory: + shortness of breath, No cough, No sputum Cardiac: No chest pain, No edema Abdomen: No pain, No nausea Male : + problem reported (hematuria) Heme: + abnormal bleeding/bruising Skin: No rash Objective Vital Signs Last Vital Signs Documentation Date Time Temp Pulse Resp B/P (MAP) Pulse Ox O2 Delivery O2 Flow Rate FiO2 12/10/16 11:12 36.7 85 22 117/73 (88) 95 Nasal Cannula 5.0 12/10/16 06:55 50 Physical Exam: General Appearance: no apparent distress ENT: hearing grossly normal Neck: no JVD Respiratory/Chest: lungs clear, normal breath sounds Cardiovascular: regular rate, rhythm, no edema, no JVD, no murmur Abdomen: non tender, soft Extremities: no pedal edema, no calf tenderness, + pertinent finding (Right radial artery--no ecchymosis, hematoma. Intact distal pulses/sensation) Neurologic/Psychiatric: no motor/sensory deficits, alert, normal mood/affect Skin: warm/dry, no rash Assessment and Plan 1. Inferior STEMI--post primary PCI with 3 overlapping drug-eluting stents to RCA 2. Severe residual multivessel disease 3. Post VT/cardiac arrest, nonsustained VT postprocedure 4. Ischemic cardiomyopathy, EF 35% 5. Chronic kidney disease 6. Prior TIA 7. Type 2 diabetes on insulin 8. Hematuria Dyspnea/pulmonary edema overnight. Positive fluid balance more than 3L since admission. Improved currently after IV lasix x1. Today appears well perfused without significant congestion. No recurrent chest pain. Electrically stable. -- Discontinue IV fluids. Follow I/Os, renal function. Reassess tomorrow need for additional diuretics. -- Continue dual antiplatelet therapy with aspirin, ticagrelor --> likely transition to clopidogrel prior to discharge -- Can discontinue amiodarone today -- Continue current metoprolol -- Start RAÚL inhibitor, lisinopril 5 mg -- continue high-intensity statin -- medical management of severe residual disease in small circumflex, diagonal. We will continue to follow. Continued [facility] stay due to: abnormal vital signs Discharge planning: uncertain Medications: Current Inpatient Medications Medications (Trade) Dose Ordered Sig/Rae Route Start Time Stop Time Status Last Admin Dose Admin Nitroglycerin (Nitrostat Tab) 0.4 mg UD PRN SL 12/08/16 00:00 01/07/17 00:00 Atropine Sulfate (Atropine Sulfate 0.1MG/Ml Inj) 0.5 mg ONE PRN IV 12/08/16 00:00 01/07/17 00:00 Ondansetron HCl (Zofran Inj) 4 mg Q6H PRN IV 12/08/16 00:00 01/07/17 00:00 Aspirin (Ecotrin Tab) 81 mg QAM PO 12/08/16 09:00 01/07/17 08:59 12/10/16 07:25 81 MG Atorvastatin Calcium (Lipitor Tab) 80 mg QAM PO 12/08/16 09:00 01/07/17 08:59 12/10/16 07:25 80 MG Ticagrelor (Brilinta Cap) 90 mg BID PO 12/08/16 09:00 01/07/17 08:59 12/10/16 08:01 90 MG Glucose (Glucose 40% Gel) 15-30 GRAMS 15 GRAMS... UD PRN PO 12/08/16 00:15 01/07/17 00:14 Glucose (Glucose Chew Tab) 4-8 Tablets 4 Tabl... UD PRN PO 12/08/16 00:15 01/07/17 00:14 Dextrose (Dextrose 50% 50ML Syringe) 25-50ML OF 50% DW IV FOR... UD PRN IV 12/08/16 00:15 01/07/17 00:14 Glucagon (Glucagon Inj) 1 mg UD PRN SQ 12/08/16 00:15 01/07/17 00:14 Ipratropium [place] (Atrovent 0.02% 0.5MG/2.5ML Neb) 0.5 mg Q4H PRN INH 12/08/16 00:30 01/07/17 00:29 Levalbuterol (Xopenex 1.25MG/ 0.5ML Neb) 1.25 mg Q4H PRN INH 12/08/16 00:30 01/07/17 00:29 Acetaminophen (Tylenol Tab) 325 mg Q6H PRN PO 12/08/16 03:00 01/07/17 00:00 Amiodarone HCL/ Dextrose 200 ml @ 16.7 mls/hr [id number] IV 12/08/16 09:15 01/07/17 09:14 12/10/16 04:07 16.7 MLS/HR Miscellaneous Information (Consult Glycemic Management Pharmacy) 1 ea UD PRN N/A 12/08/16 17:19 01/07/17 17:18 Metoprolol Tartrate (Lopressor Tab) 50 mg Q12 PO 12/09/16 09:00 01/07/17 08:59 12/10/16 07:25 50 MG Insulin Aspart (novoLOG ASPART) SLIDING SCALE ACHS SC 12/09/16 11:00 01/08/17 10:59 12/10/16 08:05 9 UNITS Insulin Glargine (Lantus Solostar Pen) See Protocol Text BID SC 12/09/16 21:00 01/08/17 20:59 12/10/16 07:27 15 UNITS Insulin Aspart (novoLOG ASPART) SLIDING SCALE 0000,0400 SC 12/10/16 00:00 01/09/17 00:00 12/10/16 00:11 2 UNITS Heparin Sodium (Porcine) (Heparin Sq 5000 Unit/0.5ml) 5,000 unit Q8 SQ 12/09/16 22:00 01/08/17 21:59 12/10/16 06:10 5,000 UNIT Ipratropium [place] (Atrovent 0.02% 0.5MG/2.5ML Neb) 0.5 mg Q6R INH 12/10/16 09:00 01/09/17 08:59 Levalbuterol (Xopenex 1.25MG/ 0.5ML Neb) 1.25 mg Q6R INH 12/10/16 09:00 01/09/17 08:59 Lab Results: 12/10/16 05:32 Red Blood Count 4.62, Mean Corpuscular Volume 92.4, Mean Corpuscular Hemoglobin 31.8, Mean Corpuscular Hemoglobin Concent 34.4, Mean Platelet Volume 10.0, Neutrophils (%) (Auto) 82.7, Lymphocytes (%) (Auto) 6.4, Monocytes (%) (Auto) 10.4, Eosinophils (%) (Auto) 0.0, Basophils (%) (Auto) 0.1, Neutrophils # (Auto ) 16.60, Lymphocytes # (Auto) 1.28, Monocytes # (Auto) 2.08, Eosinophils # (Auto ) 0.01, Basophils # (Auto) 0.02 12/10/16 05:32 Test 12/10/16 04:00 12/10/16 05:32 12/10/16 06:40 Bedside Glucose 171 mg/dl (70-99) White Blood Count 20.07 K/uL (4.8-10.8) Red Blood Count 4.62 M/uL (4.7-6.1) Hemoglobin 14.7 g/dL (14.0-18.0) Hematocrit 42.7 % (42-52) Mean Corpuscular Volume 92.4 fL (80-100) Mean Corpuscular Hemoglobin 31.8 pg (25-34) Mean Corpuscular Hemoglobin Concent 34.4 g/dl (32-36) Platelet Count 257 K/uL (130-400) Mean Platelet Volume 10.0 fL (7.4-10.4) Neutrophils (%) (Auto) 82.7 % Lymphocytes (%) (Auto) 6.4 % Monocytes (%) (Auto) 10.4 % Eosinophils (%) (Auto) 0.0 % Basophils (%) (Auto) 0.1 % Neutrophils # (Auto) 16.60 K/uL (1.4-6.5) Lymphocytes # (Auto) 1.28 K/uL (1.2-3.4) Monocytes # (Auto) 2.08 K/uL (0.11-0.59) Eosinophils # (Auto) 0.01 K/uL (0-0.5) Basophils # (Auto) 0.02 K/uL (0-0.2) RDW Standard Deviation 47.2 fL (36.4-46.3) RDW Coefficient of Variation 14.0 % (11.5-14.5) Immature Granulocyte % (Auto) 0.4 % Immature Granulocyte # (Auto) 0.08 K/uL (0.00-0.02) Anion Gap 9.0 mmol/L (3-11) Est Creatinine Clear Calc Drug Dose 38.6 ml/min Estimated GFR () 43.8 Estimated GFR (Non- 37.8 BUN/Creatinine Ratio 18.5 (10-20) Calcium Level 8.7 mg/dl (8.5-10.1) Magnesium Level 2.1 mg/dl (1.8-2.4) Arterial Blood pH 7.39 (7.35-7.45) Arterial Blood Partial Pressure CO2 31 mmHg (35-46) Arterial Blood Partial Pressure O2 82 mm/Hg (80-95) Arterial Blood HCO3 19 mmol/L (19-24) Arterial Blood Oxygen Saturation 95.9 % (90-95) Arterial Blood Base Excess -5.3 mEq/L (-9-1.8) Arterial Blood Gas Delivery 2.5% Neil Test POS (POS)
--- NOTE | 2016-12-10 13:21 | Pharmacy Progress Note ---
Glycemic Control Progress Note Date of Service Dec 10, 2016. Scope Glycemic Pharmacist consulted for glycemic control to write orders per [facility] inpatient glycemic control protocol. Objective Accuchecks BSG (last 24hrs): Test 12/09/16 14:07 12/09/16 16:19 12/09/16 20:39 12/09/16 23:57 Bedside Glucose 213 mg/dl (70-99) 190 mg/dl (70-99) 253 mg/dl (70-99) 207 mg/dl (70-99) Test 12/10/16 04:00 12/10/16 05:32 12/10/16 06:43 12/10/16 11:10 Bedside Glucose 171 mg/dl (70-99) 178 mg/dl (70-99) 296 mg/dl (70-99) Random Glucose 175 mg/dl (70-99) HbA1c: Test 12/08/16 00:57 Hemoglobin A1c 9.6 % (4.5-5.6) H Recent Pertinent Medications The patient is currently receiving: * Basal insulin: Lantus 20 units X 1 yesterday and then 22 units last night * Correctional Insulin: Novolog Correction per scale ACHS Goal Range: Low 140 mg/dL - High 180 mg/dL Correction Factor: 25 mg/dL/unit * Prandial insulin: Per carb ratio of 1 unit per 10 grams CHO consumed Outpatient Anti-Diabetic Meds Humalog 75/25 30 units twice daily plus metformin 500 mg PO daily patient non-compliant secondary to insurance issues/money Assessment & Plan ASSESSMENT: * See progress note from 12/09/16 for more background info, in short: * Pt receiving SQ basal bolus insulin regimen for hyperglycemia secondary to baseline DM (outpatient regimen on hold),stress (ACS), dextrose IVF- amiodarone drip running at 16 mLs/hr. * Patient is currently receiving an average of 60 units of insulin per day + insulin infusion yeterday (average rate around 1.6 units/hr) * 42 units of basal insulin * 18 units of prandial/correctional insulin * BSGs ranging 89 - 253 mg/dl over the past 24hrs * Changes needed to insulin regimen: * AM Fasting BSG = 175 mg/dl. This is in slightly above goal range for patient based on inpatient targets and co-morbidities. The sliding scale Lantus order was continued for breakfast; however, with the elevated blood sugar at lunchtime , a scheduled dose of Lantus 22 units was ordered twice daily. This is weight based stress of 3 and correlates with insulin gtt rate of 1.6 unit/hr. * Post-prandial BSGs are elevated/BSGs rise throughout the day therefore need to tighten CF/CR. Tightened to weight-based stress of 3 dosing for dinner. Dose for lunch was given prior to change. Ordered additional 5 units as indication for IV insulin not very stron. * Total daily dose = ~80 units. * Additional notes / comments: PLAN FOR INPATIENT GLYCEMIC CONTROL: * INCREASING Lantus to 22 units SQ BID * TIGHTENING correction factor to 20 mg/dl/unit * TIGHTENING carb ratio to 1 unit per 6 grams CHO consumed * Continuing goal range of Low 110 mg/dL - High 140 mg/dL * Please note that the plan above was derived based on current level of insulin resistance and hospital stress. These recommendations are appropriate for inpatient admission only. Plan of care upon discharge will need to be reassessed to avoid potential outpatient hypo/hyperglycemia. Thank you.
[2016-12-10] MEDS ORDERED: INSULIN ASPART 100 UNITS/ML 3 ML PEN SC ONE (13:30)
[2016-12-10 17:49] LABS: HEMATOCRIT 38.3 % (42-52)
[2016-12-10] MEDS ORDERED: LISINOPRIL 5 MG TAB PO ONE (18:19)
--- NOTE | 2016-12-10 18:34 | Progress Note ---
Medicine Progress Note Date & Time of Visit: Dec 10, 2016 at 13:19. Subjective tolerating PO asymptomatic heart failure exacerbation overnight with respiratory distress and improvement with diuresis (2L out) and BIPAP Off BIPAP now and maintained on 4L NC. Objective Last 8 Hrs Date Time Temp Pulse Resp B/P (MAP) Pulse Ox O2 Delivery O2 Flow Rate FiO2 12/10/16 12:00 Nasal Cannula 4.0 12/10/16 11:12 36.7 85 22 117/73 (88) 95 Nasal Cannula 5.0 12/10/16 08:00 94 Nasal Cannula 4.0 12/10/16 07:16 37.5 91 22 131/91 (104) 94 Nasal Cannula 4.0 12/10/16 06:55 94 28 122/82 (95) 96 BiPAP 50 12/10/16 06:33 98 36 157/93 (114) 97 BiPAP 50 12/10/16 06:30 101 36 167/109 (128) 96 BiPAP 50 12/10/16 06:28 90 95 50 12/10/16 06:25 103 30 164/99 (120) 95 BiPAP 50 12/10/16 06:15 175/103 (127) 91 Nasal Cannula 10.0 12/10/16 06:14 100 26 89 Mask 7.0 Physical Exam: GEN: WNWD, in no acute distress, alert and appropriate. HEENT: NC/AT, pupils are equal bilaterally, normal sclerae, MMM CARDIO: reg rate, S1/2 heard without m/g/r, no edema. LUNGS: CTA bilaterally, no crackles, rales or wheezes, good diaphragmatic excursion ABD: soft, non-tender, non-distended, no rebound or guarding, +BS EXTREMITY: RP and DP palpable 2+ bilat, no LE swelling or edema, extremities are warm and well-perfused. R radial wrist intact and no bruising or issues with cath site. : Power in place. Blood tinged urine seen in bag. NEURO: CN 2-12 grossly intact MUSC: 5/5 strength throughout, no gross focal deficits. SKIN: warm and dry Laboratory Results: 12/10/16 05:32 Red Blood Count 4.62, Mean Corpuscular Volume 92.4, Mean Corpuscular Hemoglobin 31.8, Mean Corpuscular Hemoglobin Concent 34.4, Mean Platelet Volume 10.0, Neutrophils (%) (Auto) 82.7, Lymphocytes (%) (Auto) 6.4, Monocytes (%) (Auto) 10.4, Eosinophils (%) (Auto) 0.0, Basophils (%) (Auto) 0.1, Neutrophils # (Auto ) 16.60, Lymphocytes # (Auto) 1.28, Monocytes # (Auto) 2.08, Eosinophils # (Auto ) 0.01, Basophils # (Auto) 0.02 12/10/16 17:39 12/10/16 05:32 Test 12/07/16 21:06 12/07/16 21:09 12/07/16 22:35 12/08/16 00:57 Prothrombin Time 10.6 SECONDS (9.0-12.0) Prothromb Time International Ratio 1.0 (0.9-1.1) Activated Partial Thromboplast Time 22.4 SECONDS (21.0-31.0) Partial Thromboplastin Ratio 0.9 Total Bilirubin 0.3 mg/dl (0.2-1) Direct Bilirubin 0.1 mg/dl (0-0.2) Aspartate Amino Transf (AST/SGOT) 55 U/L (15-37) Alanine Aminotransferase (ALT/SGPT) 79 U/L (12-78) Alkaline Phosphatase 127 U/L (45-117) Total Creatine Kinase 133 U/L (39-308) Creatine Kinase MB 3.0 ng/ml (0.5-3.6) Creatine Kinase MB Ratio 2.3 (0-3.0) Total Protein 6.3 gm/dl (6.4-8.2) Albumin 3.1 gm/dl (3.4-5.0) Lipase 114 U/L (73-393) Bedside Troponin I < 0.030 ng/ml (0-0.045) Kaolin Activated Coagulation Time 241 SECONDS (94-140) Estimated Average Glucose 229 mg/dl Hemoglobin A1c 9.6 % (4.5-5.6) Beta-Hydroxybutyric Acid 7.03 mg/dL (0.2-2.81) Thyroid Stimulating Hormone (TSH) 2.860 uIu/ml (0.300-4.500) Test 12/08/16 22:14 12/09/16 05:27 12/10/16 05:32 12/10/16 06:40 Troponin I 111.000 ng/ml (0-0.045) Phosphorus Level 2.6 mg/dl (2.5-4.9) White Blood Count 20.07 K/uL (4.8-10.8) Red Blood Count 4.62 M/uL (4.7-6.1) Hemoglobin 14.7 g/dL (14.0-18.0) Hematocrit 42.7 % (42-52) Mean Corpuscular Volume 92.4 fL (80-100) Mean Corpuscular Hemoglobin 31.8 pg (25-34) Mean Corpuscular Hemoglobin Concent 34.4 g/dl (32-36) Platelet Count 257 K/uL (130-400) Mean Platelet Volume 10.0 fL (7.4-10.4) Neutrophils (%) (Auto) 82.7 % Lymphocytes (%) (Auto) 6.4 % Monocytes (%) (Auto) 10.4 % Eosinophils (%) (Auto) 0.0 % Basophils (%) (Auto) 0.1 % Neutrophils # (Auto) 16.60 K/uL (1.4-6.5) Lymphocytes # (Auto) 1.28 K/uL (1.2-3.4) Monocytes # (Auto) 2.08 K/uL (0.11-0.59) Eosinophils # (Auto) 0.01 K/uL (0-0.5) Basophils # (Auto) 0.02 K/uL (0-0.2) RDW Standard Deviation 47.2 fL (36.4-46.3) RDW Coefficient of Variation 14.0 % (11.5-14.5) Immature Granulocyte % (Auto) 0.4 % Immature Granulocyte # (Auto) 0.08 K/uL (0.00-0.02) Anion Gap 9.0 mmol/L (3-11) Est Creatinine Clear Calc Drug Dose 38.6 ml/min Estimated GFR () 43.8 Estimated GFR (Non- 37.8 BUN/Creatinine Ratio 18.5 (10-20) Calcium Level 8.7 mg/dl (8.5-10.1) Magnesium Level 2.1 mg/dl (1.8-2.4) Arterial Blood pH 7.39 (7.35-7.45) Arterial Blood Partial Pressure CO2 31 mmHg (35-46) Arterial Blood Partial Pressure O2 82 mm/Hg (80-95) Arterial Blood HCO3 19 mmol/L (19-24) Arterial Blood Oxygen Saturation 95.9 % (90-95) Arterial Blood Base Excess -5.3 mEq/L (-9-1.8) Arterial Blood Gas Delivery 2.5% Neil Test POS (POS) Test 12/10/16 16:30 Bedside Glucose 82 mg/dl (70-99) Date/Time Source Procedure Growth Status 12/07/16 23:35 Nasal MRSA DNA Surveillance Screen - Final Specimen Negative for MRSA by DNA Probe Complete Last 24 Hours Test 12/09/16 14:07 12/09/16 16:19 12/09/16 20:39 12/09/16 23:57 Bedside Glucose 213 mg/dl 190 mg/dl 253 mg/dl 207 mg/dl Test 12/10/16 04:00 12/10/16 05:32 12/10/16 06:40 12/10/16 06:43 Bedside Glucose 171 mg/dl 178 mg/dl White Blood Count 20.07 K/uL Red Blood Count 4.62 M/uL Hemoglobin 14.7 g/dL Hematocrit 42.7 % Mean Corpuscular Volume 92.4 fL Mean Corpuscular Hemoglobin 31.8 pg Mean Corpuscular Hemoglobin Concent 34.4 g/dl Platelet Count 257 K/uL Mean Platelet Volume 10.0 fL Neutrophils (%) (Auto) 82.7 % Lymphocytes (%) (Auto) 6.4 % Monocytes (%) (Auto) 10.4 % Eosinophils (%) (Auto) 0.0 % Basophils (%) (Auto) 0.1 % Neutrophils # (Auto) 16.60 K/uL Lymphocytes # (Auto) 1.28 K/uL Monocytes # (Auto) 2.08 K/uL Eosinophils # (Auto) 0.01 K/uL Basophils # (Auto) 0.02 K/uL RDW Standard Deviation 47.2 fL RDW Coefficient of Variation 14.0 % Immature Granulocyte % (Auto) 0.4 % Immature Granulocyte # (Auto) 0.08 K/uL Sodium Level 139 mmol/L Potassium Level 4.2 mmol/L Chloride Level 107 mmol/L Carbon Dioxide Level 23 mmol/L Anion Gap 9.0 mmol/L Blood Urea Nitrogen 32 mg/dl Creatinine 1.70 mg/dl Est Creatinine Clear Calc Drug Dose 38.6 ml/min Estimated GFR () 43.8 Estimated GFR (Non- 37.8 BUN/Creatinine Ratio 18.5 Random Glucose 175 mg/dl Calcium Level 8.7 mg/dl Magnesium Level 2.1 mg/dl Arterial Blood pH 7.39 Arterial Blood Partial Pressure CO2 31 mmHg Arterial Blood Partial Pressure O2 82 mm/Hg Arterial Blood HCO3 19 mmol/L Arterial Blood Oxygen Saturation 95.9 % Arterial Blood Base Excess -5.3 mEq/L Arterial Blood Gas Delivery 2.5% Neil Test POS Test 12/10/16 11:10 Bedside Glucose 296 mg/dl Assessment & Plan 76 yo M with uncontrolled diabetes presents with STEMI, s/p defibrillation in the field, ROSC and subsequent MALICK x 3 to 100% occluded RCA. HD #3. Transferred out of ICU 12/09. 1. Inferior STEMI post VT arrest-s/p 3 stents to RCA. Continues without chest pain. Stopping amio drip per Cardio recs. Cont Ticagrelor, ASA, Lipitor and Lopressor. Adding lisinopril 5mg. 2. Acute on chronic systolic heart failure in setting of Ischemic cardiomyopathy-EF 35-40%. Cont current cardiac management as above. Lasix was given overnight/IVF stopped and respiratory distress is improved. Still requiring oxygen; will give small dose of PO Lasix now and resume home Lasix in am. Cont daily weights. 3. DMII-currently meeting inpatient goals on glargine and novolog with carb coverage. Required an insulin drip in ICU but doing well on SQ coverage. A1C is 9.6. Pt reportedly noncompliant with insulin with barriers to care identified as $ cost of current insulin in addition to timing and how this fits into his schedule (missing doses when he gets home too late in the evening for example). Will continue working with diabetic nurse educator, pharmacy and case management to figure out a suitable alternative that works for him going home. 4. CKD Stage III-baseline creat 1.8 per inpatient notes-outpatient records are not available for my review. Continues at baseline with a small increase overnight, likely related to contrast during cath. Cont to monitor. 5. HTN-Added Lasix 20mg (home dose) for am. Also adding back lisinopril as above. Pt diuresed 2L in response to IV Lasix given overnight. 6. Leukocytosis 7. Delirium-resolved 8. Hematuria-reported tugging on Power overnight that was placed for accurate I /Os in setting of acute heart failure. As he was on multiple blood thinners, this is expected. Will keep power overnight and plan to pull soon (likely tomorrow). Heparin held. No drop in H/H. Cont ASA and Ticagrelor in setting of fresh stents. DVT prophy-contraindicated 2/2 bleeding Full code Dispo-cont tele [facility] Continued [facility] stay due to: abnormal vital signs Discharge planning: uncertain Consultants: Cardio, ICU Current Inpatient Medications: Current Inpatient Medications Medications (Trade) Dose Ordered Sig/Rae Route Start Time Stop Time Status Last Admin Dose Admin Nitroglycerin (Nitrostat Tab) 0.4 mg UD PRN SL 12/08/16 00:00 01/07/17 00:00 Atropine Sulfate (Atropine Sulfate 0.1MG/Ml Inj) 0.5 mg ONE PRN IV 12/08/16 00:00 01/07/17 00:00 Ondansetron HCl (Zofran Inj) 4 mg Q6H PRN IV 12/08/16 00:00 01/07/17 00:00 Aspirin (Ecotrin Tab) 81 mg QAM PO 12/08/16 09:00 01/07/17 08:59 12/10/16 07:25 81 MG Atorvastatin Calcium (Lipitor Tab) 80 mg QAM PO 12/08/16 09:00 01/07/17 08:59 12/10/16 07:25 80 MG Ticagrelor (Brilinta Cap) 90 mg BID PO 12/08/16 09:00 01/07/17 08:59 12/10/16 08:01 90 MG Glucose (Glucose 40% Gel) 15-30 GRAMS 15 GRAMS... UD PRN PO 12/08/16 00:15 01/07/17 00:14 Glucose (Glucose Chew Tab) 4-8 Tablets 4 Tabl... UD PRN PO 12/08/16 00:15 01/07/17 00:14 Dextrose (Dextrose 50% 50ML Syringe) 25-50ML OF 50% DW IV FOR... UD PRN IV 12/08/16 00:15 01/07/17 00:14 Glucagon (Glucagon Inj) 1 mg UD PRN SQ 12/08/16 00:15 01/07/17 00:14 Ipratropium [place] (Atrovent 0.02% 0.5MG/2.5ML Neb) 0.5 mg Q4H PRN INH 12/08/16 00:30 01/07/17 00:29 Levalbuterol (Xopenex 1.25MG/ 0.5ML Neb) 1.25 mg Q4H PRN INH 12/08/16 00:30 01/07/17 00:29 Acetaminophen (Tylenol Tab) 325 mg Q6H PRN PO 12/08/16 03:00 01/07/17 00:00 Amiodarone HCL/ Dextrose 200 ml @ 16.7 mls/hr [id number] IV 12/08/16 09:15 01/07/17 09:14 12/10/16 04:07 16.7 MLS/HR Miscellaneous Information (Consult Glycemic Management Pharmacy) 1 ea UD PRN N/A 12/08/16 17:19 01/07/17 17:18 Metoprolol Tartrate (Lopressor Tab) 50 mg Q12 PO 12/09/16 09:00 01/07/17 08:59 12/10/16 07:25 50 MG Insulin Aspart (novoLOG ASPART) SLIDING SCALE ACHS SC 12/09/16 11:00 01/08/17 10:59 12/10/16 11:49 10 UNITS Insulin Aspart (novoLOG ASPART) SLIDING SCALE 0000,0400 SC 12/10/16 00:00 01/09/17 00:00 12/10/16 00:11 2 UNITS Heparin Sodium (Porcine) (Heparin Sq 5000 Unit/0.5ml) 5,000 unit Q8 SQ 12/09/16 22:00 01/08/17 21:59 12/10/16 12:59 5,000 UNIT Ipratropium [place] (Atrovent 0.02% 0.5MG/2.5ML Neb) 0.5 mg Q6R INH 12/10/16 09:00 01/09/17 08:59 Levalbuterol (Xopenex 1.25MG/ 0.5ML Neb) 1.25 mg Q6R INH 12/10/16 09:00 01/09/17 08:59 Insulin Glargine (Lantus Solostar Pen) 22 units BID SC 12/10/16 21:00 01/09/17 20:59
[2016-12-10] MEDS ORDERED: FUROSEMIDE 20 MG TAB PO ONE (19:00)
[2016-12-10] MEDS: LEVALBUTEROL 1.25MG/0.5ML NEB INH PRN (20:03)
[2016-12-10] MEDS: IPRATROPIUM BROMIDE NEB SOLN 0.02% 2.5 ML VIAL INH PRN (20:03)
[2016-12-10] MEDS ORDERED: INSULIN GLARGINE SOLOSTAR 100 UNITS/ML 3 ML PEN SC SCH (21:00)
[2016-12-11] VITALS (7 sets, daily range): BP systolic 93–126; BP diastolic 57–72; PULSE 68–90; TEMP 36.4–36.8; O2SAT 94–99
[2016-12-11] MEDS: IPRATROPIUM BROMIDE NEB SOLN 0.02% 2.5 ML VIAL INH PRN (01:45)
[2016-12-11] MEDS: LEVALBUTEROL 1.25MG/0.5ML NEB INH PRN (01:45)
[2016-12-11 06:55] LABS: BASO % 0.2 %; BASO ABS # 0.02 K/uL (0-0.2); COMPLETE YES; EOS % 0.2 %; HEMATOCRIT 36.2 % (42-52); IG% 0.2 %; LYMPH % 13.7 %; LYMPH ABS # 1.74 K/uL (1.2-3.4); MEAN CELL VOLUME 89.8 fL (80-100); MEAN CORPUSCULAR HGB CONC 35.6 g/dl (32-36); MEAN PLATELET VOLUME 9.7 fL (7.4-10.4); MONO % 10.2 %; NEUT % 75.5 %; PLATELET COUNT 214 K/uL (130-400); RED BLOOD COUNT 4.03 M/uL (4.7-6.1); WHITE BLOOD COUNT 12.74 K/uL (4.8-10.8)
[2016-12-11] MEDS: INSULIN ASPART 100 UNITS/ML 3 ML PEN SC SCH ×6 (07:00→21:00)
[2016-12-11 07:24] LABS: BUN/CREATININE RATIO 20.2 (10-20); CALCIUM 8.1 mg/dl (8.5-10.1); CREATININE 1.7 mg/dl (0.60-1.40); MAGNESIUM 2.1 mg/dl (1.8-2.4); POTASSIUM 3.3 mmol/L (3.5-5.1)
[2016-12-11] MEDS: ATORVASTATIN 40 MG TAB PO SCH (07:47)
[2016-12-11] MEDS: ASPIRIN 81 MG ECTAB PO SCH (07:47)
[2016-12-11] MEDS: FUROSEMIDE 20 MG TAB PO SCH (07:48)
[2016-12-11] MEDS: LISINOPRIL 5 MG TAB PO SCH (07:48)
[2016-12-11] MEDS: METOPROLOL TARTRATE 50 MG TAB PO SCH ×2 (07:48→20:37)
[2016-12-11] MEDS: TICAGRELOR 90 MG TAB PO SCH ×2 (07:48→20:36)
[2016-12-11] MEDS: INSULIN GLARGINE SOLOSTAR 100 UNITS/ML 3 ML PEN SC SCH ×2 (07:52→21:17)
[2016-12-11] MEDS: POTASSIUM CHLORIDE 20 MEQ TABCR PO SCH ×2 (09:32→17:34)
--- NOTE | 2016-12-11 11:19 | Pharmacy Progress Note ---
Glycemic Control Progress Note Date of Service Dec 11, 2016. Scope Glycemic Pharmacist consulted for glycemic control to write orders per [facility] inpatient glycemic control protocol. Objective Accuchecks BSG (last 24hrs): Test 12/10/16 11:10 12/10/16 16:30 12/10/16 20:19 12/11/16 00:10 Bedside Glucose 296 mg/dl (70-99) 82 mg/dl (70-99) 160 mg/dl (70-99) 106 mg/dl (70-99) Test 12/11/16 04:08 12/11/16 06:28 12/11/16 06:54 Bedside Glucose 87 mg/dl (70-99) 72 mg/dl (70-99) Random Glucose 72 mg/dl (70-99) HbA1c: Test 12/08/16 00:57 Hemoglobin A1c 9.6 % (4.5-5.6) H Recent Pertinent Medications The patient is currently receiving: * Basal insulin: Lantus 22 units every 12 hours * Correctional Insulin: Novolog Correction per scale ACHS Goal Range: Low 110 mg/dL - High 140 mg/dL Correction Factor: 20 mg/dL/unit * Prandial insulin: Per carb ratio of 1 unit per 6 grams CHO consumed * Oral Agents: None at this time Outpatient Anti-Diabetic Meds Humalog 75/25 30 units twice daily plus metformin 500 mg PO daily patient non-compliant secondary to insurance issues/money Assessment & Plan ASSESSMENT: * See progress note from 12/10 for more background info, in short: * Pt receiving SQ basal bolus insulin regimen for hyperglycemia secondary to baseline DM (outpatient regimen on hold) * Patient is currently receiving an average of 68 units of insulin per day * BSGs ranging 72 - 292 mg/dl over the past 24hrs * Changes needed to insulin regimen: * AM Fasting BSG = 72 mg/dl. This is slightly below goal range for patient based on inpatient targets and co-morbidities. Therefore Basal insulin needs decreased * Post-prandial BSGs are improved after adjustments made yesterday to CF/CR, will continue. Of note, pre-lunch BSG was elevated today due to no prandial coverage with breakfast. PLAN FOR INPATIENT GLYCEMIC CONTROL: * Decrease Lantus to 15 units BID * Continue CF 20 * Continue CR 6 * Continue ACHS Novolog w/ only 1 overnight accucheck to evaluate for hypoglycemia * Please note that the plan above was derived based on current level of insulin resistance and hospital stress. These recommendations are appropriate for inpatient admission only. Plan of care upon discharge will need to be reassessed to avoid potential outpatient hypo/hyperglycemia. Thank you.
--- NOTE | 2016-12-11 12:51 | Cardiology Follow-Up ---
Subjective Subjective Date of Service: Dec 11, 2016. Pt evaluation today including: conversation w/ patient, conversation w/ family , physical exam, chart review, lab review, review of studies, review of inpatient medication list Additional Details: Feeling well today. Denies any chest pain, shortness of breath. States he was up walking the halls yesterday without issue Wants to go home Still has hematuria his Hoffmann. Telemetry reviewed--no events overnight Problem List Medical Problems: (1) Dehydration Status: Acute (2) Hypoglycemia Status: Acute (3) ST elevation myocardial infarction (STEMI) of inferior wall Status: Acute Review of Systems Constitutional: No fever, No chills ENT: No hearing loss Respiratory: No cough, No sputum Cardiac: No chest pain, No edema Abdomen: No pain, No nausea Male : + problem reported (hematuria) Heme: + abnormal bleeding/bruising Skin: No rash Objective Vital Signs Last Vital Signs Documentation Date Time Temp Pulse Resp B/P (MAP) Pulse Ox O2 Delivery O2 Flow Rate FiO2 12/11/16 12:40 Room Air 12/11/16 11:02 36.6 74 18 101/67 (78) 97 12/11/16 08:00 4.0 12/10/16 06:55 50 Physical Exam: General Appearance: no apparent distress ENT: hearing grossly normal Neck: no JVD Respiratory/Chest: lungs clear, normal breath sounds, + decreased breath sounds (Minimally at right base more than left) Cardiovascular: regular rate, rhythm, no edema, no JVD, no murmur Abdomen: non tender, soft Extremities: no pedal edema, no calf tenderness, + pertinent finding (Right radial artery--no ecchymosis, hematoma. Intact distal pulses/sensation) Neurologic/Psychiatric: no motor/sensory deficits, alert, normal mood/affect Skin: warm/dry, no rash Assessment and Plan 1. Inferior STEMI--post primary PCI with 3 overlapping drug-eluting stents to RCA 2. Severe residual multivessel disease 3. Post VT/cardiac arrest, nonsustained VT postprocedure 4. Ischemic cardiomyopathy, EF 35%/acute systolic heart failure 5. Chronic kidney disease 6. Prior TIA 7. Type 2 diabetes on insulin 8. Hematuria Dyspnea improved following diuresis approximately 2 liters yesterday. Tolerating room air this morning. Appears well perfused without significant congestion on exam today. No recurrent chest pain. Electrically stable off amiodarone -- agree with resuming prior standing diuretics. Discussed with patient importance of salt restriction, daily weights and close cardiology follow-up -- Continue dual antiplatelet therapy with aspirin, ticagrelor --> if being discharged today would plan to load with Plavix 300 milligrams prior to discharge, stop Brilinta and continue 75 milligrams Plavix tomorrow morning -- continue current beta-treasure, RAÚL-inhibitor -- continue high-intensity statin -- medical management of severe residual disease in small circumflex, diagonal. from a cardiac standpoint okay for discharge today or tomorrow. Follow-up in [facility] next week Continued [facility] stay due to: abnormal vital signs Discharge planning: uncertain Medications: Current Inpatient Medications Medications (Trade) Dose Ordered Sig/Rae Route Start Time Stop Time Status Last Admin Dose Admin Nitroglycerin (Nitrostat Tab) 0.4 mg UD PRN SL 12/08/16 00:00 01/07/17 00:00 Atropine Sulfate (Atropine Sulfate 0.1MG/Ml Inj) 0.5 mg ONE PRN IV 12/08/16 00:00 01/07/17 00:00 Ondansetron HCl (Zofran Inj) 4 mg Q6H PRN IV 12/08/16 00:00 01/07/17 00:00 Aspirin (Ecotrin Tab) 81 mg QAM PO 12/08/16 09:00 01/07/17 08:59 12/11/16 07:47 81 MG Atorvastatin Calcium (Lipitor Tab) 80 mg QAM PO 12/08/16 09:00 01/07/17 08:59 12/11/16 07:47 80 MG Ticagrelor (Brilinta Cap) 90 mg BID PO 12/08/16 09:00 01/07/17 08:59 12/11/16 07:48 90 MG Glucose (Glucose 40% Gel) 15-30 GRAMS 15 GRAMS... UD PRN PO 12/08/16 00:15 01/07/17 00:14 Glucose (Glucose Chew Tab) 4-8 Tablets 4 Tabl... UD PRN PO 12/08/16 00:15 01/07/17 00:14 Dextrose (Dextrose 50% 50ML Syringe) 25-50ML OF 50% DW IV FOR... UD PRN IV 12/08/16 00:15 10/5/17 00:14 Glucagon (Glucagon Inj) 1 mg UD PRN SQ 12/08/16 00:15 01/07/17 00:14 Ipratropium [place] (Atrovent 0.02% 0.5MG/2.5ML Neb) 0.5 mg Q4H PRN INH 12/08/16 00:30 01/07/17 00:29 12/11/16 01:45 0.5 MG Levalbuterol (Xopenex 1.25MG/ 0.5ML Neb) 1.25 mg Q4H PRN INH 12/08/16 00:30 01/07/17 00:29 12/11/16 01:45 1.25 MG Acetaminophen (Tylenol Tab) 325 mg Q6H PRN PO 12/08/16 03:00 01/07/17 00:00 Miscellaneous Information (Consult Glycemic Management Pharmacy) 1 ea UD PRN N/A 12/08/16 17:19 01/07/17 17:18 Metoprolol Tartrate (Lopressor Tab) 50 mg Q12 PO 12/09/16 09:00 01/07/17 08:59 12/11/16 07:48 50 MG Insulin Aspart (novoLOG ASPART) SLIDING SCALE ACHS SC 12/09/16 11:00 01/08/17 10:59 12/11/16 12:21 10 UNITS Insulin Aspart (novoLOG ASPART) SLIDING SCALE 0000,0400 SC 12/10/16 00:00 01/09/17 00:00 12/11/16 07:51 5 UNITS Heparin Sodium (Porcine) (Heparin Sq 5000 Unit/0.5ml) 5,000 unit Q8 SQ 12/09/16 22:00 01/08/17 21:59 Future Hold 12/10/16 12:59 5,000 UNIT Lisinopril (Zestril Tab) 5 mg QAM PO 12/11/16 09:00 01/10/17 08:59 12/11/16 07:48 5 MG Furosemide (Lasix Tab) 20 mg QAM PO 12/11/16 09:00 01/10/17 08:59 12/11/16 07:48 20 MG Insulin Glargine (Lantus Solostar Pen) 15 units BID SC 12/11/16 09:00 01/10/17 08:59 12/11/16 07:52 15 UNITS Potassium Chloride (Klor-Con Tab) 40 meq Q6H PO 12/11/16 09:00 12/11/16 15:01 12/11/16 09:32 40 MEQ Lab Results: 12/11/16 06:28 Red Blood Count 4.03, Mean Corpuscular Volume 89.8, Mean Corpuscular Hemoglobin 32.0, Mean Corpuscular Hemoglobin Concent 35.6, Mean Platelet Volume 9.7, Neutrophils (%) (Auto) 75.5, Lymphocytes (%) (Auto) 13.7, Monocytes (%) (Auto) 10.2, Eosinophils (%) (Auto) 0.2, Basophils (%) (Auto) 0.2, Neutrophils # (Auto ) 9.64, Lymphocytes # (Auto) 1.74, Monocytes # (Auto) 1.30, Eosinophils # (Auto ) 0.02, Basophils # (Auto) 0.02 12/11/16 06:28 Test 12/11/16 06:28 12/11/16 10:53 White Blood Count 12.74 K/uL (4.8-10.8) Red Blood Count 4.03 M/uL (4.7-6.1) Hemoglobin 12.9 g/dL (14.0-18.0) Hematocrit 36.2 % (42-52) Mean Corpuscular Volume 89.8 fL (80-100) Mean Corpuscular Hemoglobin 32.0 pg (25-34) Mean Corpuscular Hemoglobin Concent 35.6 g/dl (32-36) Platelet Count 214 K/uL (130-400) Mean Platelet Volume 9.7 fL (7.4-10.4) Neutrophils (%) (Auto) 75.5 % Lymphocytes (%) (Auto) 13.7 % Monocytes (%) (Auto) 10.2 % Eosinophils (%) (Auto) 0.2 % Basophils (%) (Auto) 0.2 % Neutrophils # (Auto) 9.64 K/uL (1.4-6.5) Lymphocytes # (Auto) 1.74 K/uL (1.2-3.4) Monocytes # (Auto) 1.30 K/uL (0.11-0.59) Eosinophils # (Auto) 0.02 K/uL (0-0.5) Basophils # (Auto) 0.02 K/uL (0-0.2) RDW Standard Deviation 46.1 fL (36.4-46.3) RDW Coefficient of Variation 13.9 % (11.5-14.5) Immature Granulocyte % (Auto) 0.2 % Immature Granulocyte # (Auto) 0.02 K/uL (0.00-0.02) Anion Gap 8.0 mmol/L (3-11) Est Creatinine Clear Calc Drug Dose 38.8 ml/min Estimated GFR () 43.8 Estimated GFR (Non- 37.8 BUN/Creatinine Ratio 20.2 (10-20) Calcium Level 8.1 mg/dl (8.5-10.1) Magnesium Level 2.1 mg/dl (1.8-2.4) Bedside Glucose 231 mg/dl (70-99)
--- NOTE | 2016-12-11 22:04 | Progress Note ---
Medicine Progress Note Date & Time of Visit: Dec 11, 2016 at 15:38. Subjective tolerating PO afebrile no respiratory distress and he is off oxygen denies CP, SOB Objective Last 8 Hrs Date Time Temp Pulse Resp B/P (MAP) Pulse Ox O2 Delivery O2 Flow Rate FiO2 12/11/16 15:29 36.5 82 20 120/72 (88) 97 Room Air 12/11/16 12:40 Room Air 12/11/16 11:02 36.6 74 18 101/67 (78) 97 Room Air 12/11/16 08:00 Room Air 12/11/16 08:00 36.7 86 18 112/67 (82) 95 Nasal Cannula 4.0 Physical Exam: GEN: WNWD, in no acute distress, alert and appropriate. HEENT: NC/AT, pupils are equal bilaterally, normal sclerae, MMM CARDIO: reg rate, S1/2 heard without m/g/r, no edema. LUNGS: CTA bilaterally, no crackles, rales or wheezes, good diaphragmatic excursion ABD: soft, non-tender, non-distended, no rebound or guarding, +BS EXTREMITY: RP and DP palpable 2+ bilat, no LE swelling or edema, extremities are warm and well-perfused. R radial wrist intact and no bruising or issues with cath site. NEURO: CN 2-12 grossly intact MUSC: 5/5 strength throughout, no gross focal deficits. SKIN: warm and dry Laboratory Results: 12/11/16 06:28 Red Blood Count 4.03, Mean Corpuscular Volume 89.8, Mean Corpuscular Hemoglobin 32.0, Mean Corpuscular Hemoglobin Concent 35.6, Mean Platelet Volume 9.7, Neutrophils (%) (Auto) 75.5, Lymphocytes (%) (Auto) 13.7, Monocytes (%) (Auto) 10.2, Eosinophils (%) (Auto) 0.2, Basophils (%) (Auto) 0.2, Neutrophils # (Auto ) 9.64, Lymphocytes # (Auto) 1.74, Monocytes # (Auto) 1.30, Eosinophils # (Auto ) 0.02, Basophils # (Auto) 0.02 12/11/16 06:28 Test 12/07/16 21:06 12/07/16 21:09 12/07/16 22:35 12/08/16 00:57 Prothrombin Time 10.6 SECONDS (9.0-12.0) Prothromb Time International Ratio 1.0 (0.9-1.1) Activated Partial Thromboplast Time 22.4 SECONDS (21.0-31.0) Partial Thromboplastin Ratio 0.9 Total Bilirubin 0.3 mg/dl (0.2-1) Direct Bilirubin 0.1 mg/dl (0-0.2) Aspartate Amino Transf (AST/SGOT) 55 U/L (15-37) Alanine Aminotransferase (ALT/SGPT) 79 U/L (12-78) Alkaline Phosphatase 127 U/L (45-117) Total Creatine Kinase 133 U/L (39-308) Creatine Kinase MB 3.0 ng/ml (0.5-3.6) Creatine Kinase MB Ratio 2.3 (0-3.0) Total Protein 6.3 gm/dl (6.4-8.2) Albumin 3.1 gm/dl (3.4-5.0) Lipase 114 U/L (73-393) Bedside Troponin I < 0.030 ng/ml (0-0.045) Kaolin Activated Coagulation Time 241 SECONDS (94-140) Estimated Average Glucose 229 mg/dl Hemoglobin A1c 9.6 % (4.5-5.6) Beta-Hydroxybutyric Acid 7.03 mg/dL (0.2-2.81) Thyroid Stimulating Hormone (TSH) 2.860 uIu/ml (0.300-4.500) Test 12/08/16 22:14 12/09/16 05:27 12/10/16 06:40 12/11/16 06:28 Troponin I 111.000 ng/ml (0-0.045) Phosphorus Level 2.6 mg/dl (2.5-4.9) Arterial Blood pH 7.39 (7.35-7.45) Arterial Blood Partial Pressure CO2 31 mmHg (35-46) Arterial Blood Partial Pressure O2 82 mm/Hg (80-95) Arterial Blood HCO3 19 mmol/L (19-24) Arterial Blood Oxygen Saturation 95.9 % (90-95) Arterial Blood Base Excess -5.3 mEq/L (-9-1.8) Arterial Blood Gas Delivery 2.5% Neil Test POS (POS) White Blood Count 12.74 K/uL (4.8-10.8) Red Blood Count 4.03 M/uL (4.7-6.1) Hemoglobin 12.9 g/dL (14.0-18.0) Hematocrit 36.2 % (42-52) Mean Corpuscular Volume 89.8 fL (80-100) Mean Corpuscular Hemoglobin 32.0 pg (25-34) Mean Corpuscular Hemoglobin Concent 35.6 g/dl (32-36) Platelet Count 214 K/uL (130-400) Mean Platelet Volume 9.7 fL (7.4-10.4) Neutrophils (%) (Auto) 75.5 % Lymphocytes (%) (Auto) 13.7 % Monocytes (%) (Auto) 10.2 % Eosinophils (%) (Auto) 0.2 % Basophils (%) (Auto) 0.2 % Neutrophils # (Auto) 9.64 K/uL (1.4-6.5) Lymphocytes # (Auto) 1.74 K/uL (1.2-3.4) Monocytes # (Auto) 1.30 K/uL (0.11-0.59) Eosinophils # (Auto) 0.02 K/uL (0-0.5) Basophils # (Auto) 0.02 K/uL (0-0.2) RDW Standard Deviation 46.1 fL (36.4-46.3) RDW Coefficient of Variation 13.9 % (11.5-14.5) Immature Granulocyte % (Auto) 0.2 % Immature Granulocyte # (Auto) 0.02 K/uL (0.00-0.02) Anion Gap 8.0 mmol/L (3-11) Est Creatinine Clear Calc Drug Dose 38.8 ml/min Estimated GFR () 43.8 Estimated GFR (Non- 37.8 BUN/Creatinine Ratio 20.2 (10-20) Calcium Level 8.1 mg/dl (8.5-10.1) Magnesium Level 2.1 mg/dl (1.8-2.4) Test 12/11/16 20:40 Bedside Glucose 132 mg/dl (70-99) Date/Time Source Procedure Growth Status 12/07/16 23:35 Nasal MRSA DNA Surveillance Screen - Final Specimen Negative for MRSA by DNA Probe Complete Last 24 Hours Test 12/10/16 16:30 12/10/16 17:39 12/10/16 20:19 12/11/16 00:10 Bedside Glucose 82 mg/dl 160 mg/dl 106 mg/dl Hemoglobin 13.7 g/dL Hematocrit 38.3 % Test 12/11/16 04:08 12/11/16 06:28 12/11/16 06:54 12/11/16 10:53 Bedside Glucose 87 mg/dl 72 mg/dl 231 mg/dl White Blood Count 12.74 K/uL Red Blood Count 4.03 M/uL Hemoglobin 12.9 g/dL Hematocrit 36.2 % Mean Corpuscular Volume 89.8 fL Mean Corpuscular Hemoglobin 32.0 pg Mean Corpuscular Hemoglobin Concent 35.6 g/dl Platelet Count 214 K/uL Mean Platelet Volume 9.7 fL Neutrophils (%) (Auto) 75.5 % Lymphocytes (%) (Auto) 13.7 % Monocytes (%) (Auto) 10.2 % Eosinophils (%) (Auto) 0.2 % Basophils (%) (Auto) 0.2 % Neutrophils # (Auto) 9.64 K/uL Lymphocytes # (Auto) 1.74 K/uL Monocytes # (Auto) 1.30 K/uL Eosinophils # (Auto) 0.02 K/uL Basophils # (Auto) 0.02 K/uL RDW Standard Deviation 46.1 fL RDW Coefficient of Variation 13.9 % Immature Granulocyte % (Auto) 0.2 % Immature Granulocyte # (Auto) 0.02 K/uL Sodium Level 140 mmol/L Potassium Level 3.3 mmol/L Chloride Level 109 mmol/L Carbon Dioxide Level 23 mmol/L Anion Gap 8.0 mmol/L Blood Urea Nitrogen 34 mg/dl Creatinine 1.70 mg/dl Est Creatinine Clear Calc Drug Dose 38.8 ml/min Estimated GFR () 43.8 Estimated GFR (Non- 37.8 BUN/Creatinine Ratio 20.2 Random Glucose 72 mg/dl Calcium Level 8.1 mg/dl Magnesium Level 2.1 mg/dl Assessment & Plan 76 yo M with uncontrolled diabetes presents with STEMI, s/p defibrillation in the field, ROSC and subsequent MALICK x 3 to 100% occluded RCA. HD #3. Transferred out of ICU 12/09. 1. Inferior STEMI post VT arrest-s/p 3 stents to RCA. Continues without chest pain. Cont Ticagrelor, ASA, Lipitor and Lopressor, lisinopril. 2. Acute on chronic systolic heart failure in setting of Ischemic cardiomyopathy-EF 35-40%-compensated and not in respiratory distress any longer. Cont current cardiac management as above. Cont daily Lasix. Cont daily weights. 3. DMII-currently meeting inpatient goals on glargine and novolog with carb coverage. Required an insulin drip in ICU but doing well on SQ coverage. A1C is 9.6. Pt reportedly noncompliant with insulin with barriers to care identified as $ cost of current insulin in addition to timing and how this fits into his schedule (missing doses when he gets home too late in the evening for example). Will continue working with diabetic nurse educator, pharmacy and case management to figure out a suitable alternative that works for him going home. 4. CKD Stage III-baseline creat 1.8 per inpatient notes-outpatient records are not available for my review. Continues at baseline with a small increase overnight, likely related to contrast during cath. Cont to monitor. 5. HTN-Added Lasix 20mg (home dose) for am. Also adding back lisinopril as above. BP at goal. 6. Leukocytosis -improved. 7. Delirium-resolved 8. Hematuria-2/2 Hoffmann trauma on blood thinners. Heparin held. No drop in H/ H. Cont ASA and Ticagrelor in setting of fresh stents. Hoffmann was removed today with improvement in urine color back to normal. DVT prophy-contraindicated 2/2 bleeding Full code Dispo-cont tele Amanda Corcoran DO [facility] Hospitalist Continued [facility] stay due to: abnormal vital signs Discharge planning: uncertain Consultants: Cardio, ICU Current Inpatient Medications: Current Inpatient Medications Medications (Trade) Dose Ordered Sig/Rae Route Start Time Stop Time Status Last Admin Dose Admin Nitroglycerin (Nitrostat Tab) 0.4 mg UD PRN SL 12/08/16 00:00 01/07/17 00:00 Atropine Sulfate (Atropine Sulfate 0.1MG/Ml Inj) 0.5 mg ONE PRN IV 12/08/16 00:00 01/07/17 00:00 Ondansetron HCl (Zofran Inj) 4 mg Q6H PRN IV 12/08/16 00:00 01/07/17 00:00 Aspirin (Ecotrin Tab) 81 mg QAM PO 12/08/16 09:00 01/07/17 08:59 12/11/16 07:47 81 MG Atorvastatin Calcium (Lipitor Tab) 80 mg QAM PO 12/08/16 09:00 01/07/17 08:59 12/11/16 07:47 80 MG Ticagrelor (Brilinta Cap) 90 mg BID PO 12/08/16 09:00 01/07/17 08:59 12/11/16 07:48 90 MG Glucose (Glucose 40% Gel) 15-30 GRAMS 15 GRAMS... UD PRN PO 12/08/16 00:15 01/07/17 00:14 Glucose (Glucose Chew Tab) 4-8 Tablets 4 Tabl... UD PRN PO 12/08/16 00:15 01/07/17 00:14 Dextrose (Dextrose 50% 50ML Syringe) 25-50ML OF 50% DW IV FOR... UD PRN IV 12/08/16 00:15 01/07/17 00:14 Glucagon (Glucagon Inj) 1 mg UD PRN SQ 12/08/16 00:15 01/07/17 00:14 Ipratropium [place] (Atrovent 0.02% 0.5MG/2.5ML Neb) 0.5 mg Q4H PRN INH 12/08/16 00:30 01/07/17 00:29 12/11/16 01:45 0.5 MG Levalbuterol (Xopenex 1.25MG/ 0.5ML Neb) 1.25 mg Q4H PRN INH 12/08/16 00:30 01/07/17 00:29 12/11/16 01:45 1.25 MG Acetaminophen (Tylenol Tab) 325 mg Q6H PRN PO 12/08/16 03:00 01/07/17 00:00 Miscellaneous Information (Consult Glycemic Management Pharmacy) 1 ea UD PRN N/A 12/08/16 17:19 01/07/17 17:18 Metoprolol Tartrate (Lopressor Tab) 50 mg Q12 PO 12/09/16 09:00 01/07/17 08:59 12/11/16 07:48 50 MG Insulin Aspart (novoLOG ASPART) SLIDING SCALE ACHS SC 12/09/16 11:00 01/08/17 10:59 12/11/16 12:21 10 UNITS Heparin Sodium (Porcine) (Heparin Sq 5000 Unit/0.5ml) 5,000 unit Q8 SQ 12/09/16 22:00 01/08/17 21:59 Future Hold 12/10/16 12:59 5,000 UNIT Lisinopril (Zestril Tab) 5 mg QAM PO 12/11/16 09:00 01/10/17 08:59 12/11/16 07:48 5 MG Furosemide (Lasix Tab) 20 mg QAM PO 12/11/16 09:00 01/10/17 08:59 12/11/16 07:48 20 MG Insulin Glargine (Lantus Solostar Pen) 15 units BID SC 12/11/16 09:00 01/10/17 08:59 12/11/16 07:52 15 UNITS Insulin Aspart (novoLOG ASPART) SLIDING SCALE 0200 ONCE SC 12/12/16 02:00 12/12/16 02:01
[2016-12-12 00:03] VITALS: BP 97/66; PULSE 74; TEMP 36.5; O2SAT 93
[2016-12-12] MEDS ORDERED: INSULIN ASPART 100 UNITS/ML 3 ML PEN SC ONE (02:00)
[2016-12-12 04:03] VITALS: BP 100/58; TEMP 36.7; O2SAT 93
[2016-12-12 06:10] LABS: HEMATOCRIT 39.7 % (42-52); MEAN CELL VOLUME 92.1 fL (80-100); MEAN CORPUSCULAR HEMOGLOBIN 30.6 pg (25-34); MEAN CORPUSCULAR HGB CONC 33.2 g/dl (32-36); MEAN PLATELET VOLUME 9.9 fL (7.4-10.4); PLATELET COUNT 257 K/uL (130-400); RED BLOOD COUNT 4.31 M/uL (4.7-6.1); WHITE BLOOD COUNT 11.23 K/uL (4.8-10.8)
[2016-12-12 06:56] LABS: BUN/CREATININE RATIO 20.5 (10-20); CALCIUM 8.4 mg/dl (8.5-10.1); CREATININE 1.7 mg/dl (0.60-1.40); MAGNESIUM 2.2 mg/dl (1.8-2.4); POTASSIUM 4.4 mmol/L (3.5-5.1)
[2016-12-12] MEDS: INSULIN ASPART 100 UNITS/ML 3 ML PEN SC SCH ×2 (07:00→11:00)
[2016-12-12 07:28] VITALS: BP 115/71; PULSE 80; TEMP 36.7; O2SAT 94
[2016-12-12] MEDS ORDERED: LSN5 PO (08:46)
[2016-12-12] MEDS ORDERED: ATOR-26 PO (08:46)
[2016-12-12] MEDS ORDERED: METO50TA16 PO (08:48)
[2016-12-12] MEDS ORDERED: CLOPIDOGREL BISULFATE 300 MG TAB PO STA (08:55)
--- NOTE | 2016-12-12 08:55 | Discharge Instructions ---
Discharge Instructions Date of Service Dec 12, 2016. Admission Reason for Admission: ACS Discharge Discharge Diagnosis / Problem: Inferior STEMI s/p MLAICK to RCA x 3, Acute systolic heart failure Discharge Goals Goal(s): Prevent Disease Progression Activity Recommendations Activity Limitations: per Instructions/Follow-up section . Instructions / Follow-Up Instructions / Follow-Up Call your Primary Care doctor if any of the following symptoms or problems start or get worse: * Shortness of breath or difficulty breathing * Wake up at night short of breath * Chest pain * Cough * Swelling of your hands, feet, or legs * More fatigued or tired with your normal activity * Palpitations - sudden fast heart beats WEIGHT * Weigh yourself every morning after using the bathroom. * Use the same scale. * Wear the same amount of clothing. * Write your weight down on a chart. * Call your Primary Care doctor if you gain more than 2-3 pounds in 1-2 days. MEDICATIONS * Use this discharge instruction sheet for medication instructions. * Take your medications at the time your doctor ordered. * Do not skip a dose of your medicines. * If you miss a dose of medicine, take it as soon as possible, but DO NOT DOUBLE A DOSE. * Read your medicine information when you get home. * Know all of the side effects of your medicine. If in doubt, ask your pharmacist * Call your Primary Care doctor's office if you have any side effects. * Be sure all of your doctors know what medicine and herbs you take (including cold, flu, and herbal medicine). Take the following with you to your follow-up doctor appointments: * Weight Chart * Medication List * List of questions Do not drink excessive alcohol, beer or wine. ADDITIONAL PROVIDER INSTRUCTIONS: 1. Please take all medications as instructed. 2. Please inform your primary care physician (PCP) if there are any issues with the new insulin so they can continue to get you on something that works for you if the current option does not. You will need a repeat A1C check in 3 months. Your PCP will order this. 3. Please follow-up with your PCP within one week of discharge from the rehab facility. 4. Please follow-up in the Heart Failure clinic next week or as otherwise instructed by your Nurse Administrator (Dr. Graeme Pak). It was a pleasure taking care of you! Call if you have any questions or problems. You can reach a [facility] hospitalist on duty at [facility] 24 hours a day by calling [phone]. Take care of yourself. DO Shaina Patel Hospitalist Current Hospital Diet Patient's current hospital diet: AHA Diet (Heart Healthy), Diabetes Type 2 Diet Discharge Diet Recommended Diet: AHA Diet (Heart Healthy), Diabetes Type 2 Diet Procedures Procedures Performed: TTE: EF 30-35% Moderate left ventricular systolic dysfunction. Mid to apical inferior,basal septal, apical,posterior hypokinesis. Left ventricular diastolic dysfunction. Trace mitral and tricuspid regurgitation. Pending Studies Studies pending at discharge: no Laboratory Results Hemoglobin A1c Test 12/08/16 00:57 Range/Units Estimated Average Glucose 229 mg/dl Hemoglobin A1c 9.6 H 4.5-5.6 % Medical Emergencies . Who to Call and When: Call 911 or go to the Emergency Room if: * If at any time you feel your situation is an emergency * You have tightness or pain in your chest that does not go away with rest or Nitroglycerin * You are very short of breath even with rest . Non-Emergent Contact Non-Emergency issues call your: Primary Care Provider . . "Provider Documentation" section prepared by Amanda Corcoran. . VTE Core Measure Inpt VTE Proph given/why not?: Other Anticoagulation, Contraindicated (initial heaprin drip, switched to heparin SQ, held because of gross hematuria.)
[2016-12-12] MEDS: ASPIRIN 81 MG ECTAB PO SCH (09:13)
[2016-12-12] MEDS: FUROSEMIDE 20 MG TAB PO SCH (09:13)
[2016-12-12] MEDS: LISINOPRIL 5 MG TAB PO SCH (09:14)
[2016-12-12] MEDS: ATORVASTATIN 40 MG TAB PO SCH (09:14)
[2016-12-12] MEDS: METOPROLOL TARTRATE 50 MG TAB PO SCH (09:14)
[2016-12-12] MEDS: INSULIN GLARGINE SOLOSTAR 100 UNITS/ML 3 ML PEN SC SCH (09:19)
--- NOTE | 2016-12-12 11:49 | Cardiology Follow-Up ---
Subjective Subjective Date of Service: Dec 12, 2016. Pt evaluation today including: conversation w/ patient, physical exam, chart review, lab review, review of studies, review of inpatient medication list Additional Details: No chest pain. Breathing comfortably off oxygen. Hoffmann out yesterday. No other new complaints. Tele reviewed -- no events. Problem List Medical Problems: (1) Dehydration Status: Acute (2) Hypoglycemia Status: Acute (3) ST elevation myocardial infarction (STEMI) of inferior wall Status: Acute Review of Systems Constitutional: No fever, No chills ENT: No hearing loss Respiratory: No cough, No sputum Cardiac: No chest pain, No edema Abdomen: No pain, No nausea Skin: No rash Objective Vital Signs Last Vital Signs Documentation Date Time Temp Pulse Resp B/P (MAP) Pulse Ox O2 Delivery O2 Flow Rate FiO2 12/12/16 08:20 Room Air 12/12/16 07:28 36.7 80 19 115/71 (86) 94 12/11/16 08:00 4.0 12/10/16 06:55 50 Physical Exam: General Appearance: no apparent distress ENT: hearing grossly normal Neck: no JVD Respiratory/Chest: lungs clear, normal breath sounds Cardiovascular: regular rate, rhythm, no edema, no JVD, no murmur Abdomen: non tender, soft Extremities: no pedal edema, no calf tenderness, + pertinent finding (Right radial artery--no ecchymosis, hematoma. Intact distal pulses/sensation) Neurologic/Psychiatric: no motor/sensory deficits, alert, normal mood/affect Skin: warm/dry, no rash Assessment and Plan 1. Inferior STEMI--post primary PCI with 3 overlapping drug-eluting stents to RCA 2. Severe residual multivessel disease 3. Post VT/cardiac arrest, nonsustained VT postprocedure 4. Ischemic cardiomyopathy, EF 35%/acute systolic heart failure 5. Chronic kidney disease 6. Prior TIA 7. Type 2 diabetes on insulin 8. Hematuria No recurrent chest pain. Hemodynamically and electrically stable. From a cardiac standpoint OK for discharge to rehab. -- Continue dual antiplatelet therapy -- transitioned to Plavix today --> continue ASA 81 mg and plavix 75 mg daily, at least for a year -- likely lifelong -- agree with transition from metoprolol to toprol XL, continue current RAÚL inhibitor -- continue high-intensity statin -- medical management of severe residual disease in small circumflex, diagonal. Follow-up with heart failure clinic in next 1-2 weeks. Medications: Current Inpatient Medications Medications (Trade) Dose Ordered Sig/Rae Route Start Time Stop Time Status Last Admin Dose Admin Nitroglycerin (Nitrostat Tab) 0.4 mg UD PRN SL 12/08/16 00:00 01/07/17 00:00 Atropine Sulfate (Atropine Sulfate 0.1MG/Ml Inj) 0.5 mg ONE PRN IV 12/08/16 00:00 01/07/17 00:00 Ondansetron HCl (Zofran Inj) 4 mg Q6H PRN IV 12/08/16 00:00 01/07/17 00:00 Aspirin (Ecotrin Tab) 81 mg QAM PO 12/08/16 09:00 01/07/17 08:59 12/12/16 09:13 81 MG Atorvastatin Calcium (Lipitor Tab) 80 mg QAM PO 12/08/16 09:00 01/07/17 08:59 12/12/16 09:14 80 MG Glucose (Glucose 40% Gel) 15-30 GRAMS 15 GRAMS... UD PRN PO 12/08/16 00:15 01/07/17 00:14 Glucose (Glucose Chew Tab) 4-8 Tablets 4 Tabl... UD PRN PO 12/08/16 00:15 01/07/17 00:14 Dextrose (Dextrose 50% 50ML Syringe) 25-50ML OF 50% DW IV FOR... UD PRN IV 12/08/16 00:15 01/07/17 00:14 Glucagon (Glucagon Inj) 1 mg UD PRN SQ 12/08/16 00:15 01/07/17 00:14 Ipratropium [place] (Atrovent 0.02% 0.5MG/2.5ML Neb) 0.5 mg Q4H PRN INH 12/08/16 00:30 01/07/17 00:29 12/11/16 01:45 0.5 MG Levalbuterol (Xopenex 1.25MG/ 0.5ML Neb) 1.25 mg Q4H PRN INH 12/08/16 00:30 01/07/17 00:29 12/11/16 01:45 1.25 MG Acetaminophen (Tylenol Tab) 325 mg Q6H PRN PO 12/08/16 03:00 01/07/17 00:00 Miscellaneous Information (Consult Glycemic Management Pharmacy) 1 ea UD PRN N/A 12/08/16 17:19 01/07/17 17:18 Metoprolol Tartrate (Lopressor Tab) 50 mg Q12 PO 12/09/16 09:00 01/07/17 08:59 12/12/16 09:14 50 MG Insulin Aspart (novoLOG ASPART) SLIDING SCALE ACHS SC 12/09/16 11:00 01/08/17 10:59 12/12/16 07:00 7 UNITS Heparin Sodium (Porcine) (Heparin Sq 5000 Unit/0.5ml) 5,000 unit Q8 SQ 12/09/16 22:00 01/08/17 21:59 Future Hold 12/10/16 12:59 5,000 UNIT Lisinopril (Zestril Tab) 5 mg QAM PO 12/11/16 09:00 01/10/17 08:59 12/12/16 09:14 5 MG Furosemide (Lasix Tab) 20 mg QAM PO 12/11/16 09:00 01/10/17 08:59 12/12/16 09:13 20 MG Insulin Glargine (Lantus Solostar Pen) 15 units BID SC 12/11/16 09:00 01/10/17 08:59 12/12/16 09:19 15 UNITS Clopidogrel Bisulfate (plAVix TAB) 75 mg QAM PO 12/13/16 09:00 01/12/17 08:59 Lab Results: 12/12/16 05:39 12/12/16 05:39 Test 12/12/16 05:39 12/12/16 06:52 Red Blood Count 4.31 M/uL (4.7-6.1) Mean Corpuscular Volume 92.1 fL (80-100) Mean Corpuscular Hemoglobin 30.6 pg (25-34) Mean Corpuscular Hemoglobin Concent 33.2 g/dl (32-36) RDW Standard Deviation 47.2 fL (36.4-46.3) RDW Coefficient of Variation 13.8 % (11.5-14.5) Mean Platelet Volume 9.9 fL (7.4-10.4) Anion Gap 5.0 mmol/L (3-11) Est Creatinine Clear Calc Drug Dose 38.7 ml/min Estimated GFR () 43.8 Estimated GFR (Non- 37.8 BUN/Creatinine Ratio 20.5 (10-20) Calcium Level 8.4 mg/dl (8.5-10.1) Magnesium Level 2.2 mg/dl (1.8-2.4) Bedside Glucose 135 mg/dl (70-99)
[2016-12-12 11:57] VITALS: BP 117/68; PULSE 80; TEMP 36.6; O2SAT 95
[2016-12-12] MEDS ORDERED: INSU3INJ3 SQ (12:34)
[2016-12-12] MEDS ORDERED: METO1TAB68 PO (12:37)
--- NOTE | 2016-12-12 14:20 | Pharmacy Progress Note ---
Glycemic: Assessment & Plan Date of Service Dec 12, 2016. Assessment & Plan The patient is currently receiving ~50 units of insulin per day. BSGs ranging 122 - 173 mg/dl over the past 24hrs. * Basal insulin: Lantus 15 units every 12 hours * Correctional Insulin: Novolog Correction per scale ACHS Goal Range: Low 110 mg/dL - High 140 mg/dL Correction Factor: 20 mg/dL/unit * Prandial insulin: Per carb ratio of 1 unit per 6 grams CHO consumed BSGs continue to improve, no changes needed to inpatient regimen at this time. Pharmacy will continue to monitor patient daily and write orders per [facility] inpatient glycemic control protocol. Thanks. DISCHARGE RECOMMENDATIONS: * Dr. Corcoran called this AM to ask if I could assist w/ discharge recs because the patient had issues with non-compliance due to cost * I made several phone calls to the patient, outpatient pharmacy and case management worker and discovered that patient has been taking Levemir 45 units BID (NOT the Humalog 75/25 that was listed). He still has 2 boxes at home so it 's reasonable for him to continue with this until he runs out. He also reports the pens not working at times. When asked if he does the air shot prior to administration, he reported not knowing about this at all. * Recommendations as discussed with Dr. Corcoran: * Continue Levemir 45 units BID after rehab but make sure patient knows how to properly administer * Ensure patient has appropriate follow-up with outpatient provider as he needs an alternative option that is more cost effective. Novolog 70/30 is on his formulary and is in pen form but would still be ~$200/month. Another option would be the Relion brand of 70/30 from [employer] which is only ~$25/ bottle but is not available in pens. Yet another option would be for physician' s office to see if they have coupons for discounted Lantus, etc so he could still use the pens.
[2016-12-12 15:22] VITALS: BP 117/68; PULSE 80; TEMP 36.6; O2SAT 95
--- NOTE | 2016-12-12 22:41 | Discharge Summary ---
Discharge Summary Date of Service Dec 12, 2016. Discharge Summary Admission Date: Dec 07, 2016 at 23:56 Discharge Date: Dec 12, 2016 Discharge Disposition: Rehab Principal Diagnosis: Inferior STEMI s/p VT arrest with prehospital cardioversion MALICK x 3 to RCA Acute on chronic systolic heart failure in setting of ischemic cardiomyopathy DMII with noncompliance CKD III HTN Leukocytosis Delirium-resolved Hematuria 2/2 Hoffmann trauma-resolved. Ambulatory dysfunction Procedures: cardiac catheterization s/p MALICK x 3 Vaccinations: None. Consultations: Cardio, ICU Pending Studies/Follow-Up: see instructions below. Medication Reconciliation New Medications: Metoprolol Succinate (Toprol Xl) 100 Mg Tab 100 MG PO DAILY for 30 Days, #30 TAB Atorvastatin (Lipitor) 80 Mg Tab 1 TAB PO DAILY for 30 Days, #30 TAB 3 Refills Lisinopril (Lisinopril) 5 Mg Tab 5 MG PO QAM for 30 Days, #30 TAB 3 Refills Continued Medications: Aspirin (Aspirin 81) 81 Mg Tab 81 MG PO DAILY Clopidogrel Bisulfate (Clopidogrel) 75 Mg Tab 75 MG PO DAILY, #90 Furosemide (Furosemide) 20 Mg Tab 20 MG PO DAILY, #14 Insulin Detemir (Levemir Flextouch) 100 Unit/Ml Inj 45 UNITS SQ BID Discontinued Medications: Atorvastatin (Atorvastatin Calcium) 20 Mg Tab 20 MG PO DAILY, #90 Lisinopril (Zestril) 10 Mg Tab 10 MG PO DAILY, TAB Metformin Ext Rel (Glucophage Ext Rel) 500 Mg Tab 1 TAB PO DAILY for 90 Days, #90 TAB 3 Refills Admission Information HPI (per Admitting provider): HISTORY OF PRESENT ILLNESS: History is obtained from the patient, ER provider, and records. Medical history is significant for TIA, hypertension, hyperlipidemia, DM2 insulin requiring, chronic renal insufficiency (baseline creatinine 1.8). Recent confinement last October 2015 for confusion, hypoglycemia. Patient noted bilaterally leg swelling 2 weeks ago. Denies shortness of breath. Did not tell family doctor patient Last night, the patient was watching television, had substernal heaviness w/ diaphoresis for about 2 hours. Son called EMS. ST elevations noted as per ER MD. Patient went into cardiac arrest and was shocked twice. Patient does not recall the episode, remembers having bitten his tongue. Px given ASA, IV amiodarone bolus en route to the hospital. At the Emergency Room, EKG done showed ST elevation in the inferior leads. Heart Alert called. Patient underwent emergent cardiac catheterization. Acute occluded RCA noted, severe multivessel CAD with chronically occluded early mid LAD, small secondary with 70%, small circumflex with 90% stenosis, LVEDP of 20. PCI of proximal and distal RCA with the overlapping stents. Patient transferred to the ICU. Currently comfortable. Physical Exam (per Admitting): PHYSICAL EXAMINATION: VITAL SIGNS: Blood pressure was noted to be 129/90, pulse rate 111, RR 20, temperature 36.4, sats 93 on 10 L oxygen mask. GENERAL: Somewhat anxious, obese, no respiratory distress. SKIN: Pallor. HEENT: alopecia. pink palpebral conjunctivae. Dry mucosa. O2 mask noted CHEST: Decreased breath sounds. HEART: Tachycardic. ABDOMEN: Some distension, non tender. EXTREMITIES: Minimal LE edema, no tenderness. NEUROLOGIC: No gross focality. Hospital Course 76 yo M with uncontrolled diabetes presents with STEMI, s/p defibrillation in the field, ROSC and subsequent MALICK x 3 to 100% occluded RCA. HD #3. Transferred out of ICU /. 1. Inferior STEMI post VT arrest-s/p 3 stents to RCA. Continues without chest pain. Cont Ticagrelor, ASA, Lipitor and Lopressor, lisinopril. 2. Acute on chronic systolic heart failure in setting of Ischemic cardiomyopathy-EF 35-40%-compensated and not in respiratory distress any longer after IV diuresis. Cont current cardiac management as above. Cont daily Lasix. Cont daily weights. 3. DMII-currently meeting inpatient goals on glargine and novolog with carb coverage. Required an insulin drip in ICU but doing well on SQ coverage. A1C is 9.6. Pt reportedly noncompliant with insulin with barriers to care identified as $ cost of current insulin in addition to timing and how this fits into his schedule (missing doses when he gets home too late in the evening for example). Result of our multi-disciplinary approach is that he can use Novolog 70/30 which is on his formulary and is in pen form but would still be ~$200/ month. Another option would be the Relion brand of 70/30 from [employer] which is only ~$25/bottle but is not available in pens. Yet another option would be for physician's office to see if they have coupons for discounted Lantus, etc so he could still use the pens. Will forward this DC summary to PCP office for consideration. 4. CKD Stage III-at baseline. 5. HTN-Added Lasix 20mg (home dose) for am. Also adding back lisinopril as above. BP at goal. 6. Leukocytosis -improved. 7. Delirium-resolved 8. Hematuria-2/2 Hoffmann trauma on blood thinners. Heparin held. No drop in H/ H. Cont ASA and Ticagrelor in setting of fresh stents. Hoffmann was removed today with improvement in urine color back to normal. On day of discharge he was afebrile and hemodynamically stable. He was mentating at baseline and was tolerating PO. He was being sent to rehab for ambulatory dysfunction. Physical exam was unremarkable. He was discharged in stable condition. Total time spent on discharge = 60 minutes This includes examination of the patient, discharge planning, medication reconciliation, and communication with other providers[place] [address] Discharge Heart Failure (CHF) Patient Name: Jacobo Russell Unit Number: [id number] Date of : 1940 Patient Status: Discharged Inpatient Attending Doctor: Amanda Corcoran DO DI: CHF v4 Discharge Instructions Date of Service Dec 12, 2016. Admission Reason for Admission: ACS Discharge Discharge Diagnosis / Problem: Inferior STEMI s/p MALICK to RCA x 3, Acute systolic heart failure Discharge Goals Goal(s): Prevent Disease Progression Activity Recommendations Activity Limitations: per Instructions/Follow-up section . Instructions / Follow-Up Instructions / Follow-Up Call your Primary Care doctor if any of the following symptoms or problems start or get worse: * Shortness of breath or difficulty breathing * Wake up at night short of breath * Chest pain * Cough * Swelling of your hands, feet, or legs * More fatigued or tired with your normal activity * Palpitations - sudden fast heart beats WEIGHT * Weigh yourself every morning after using the bathroom. * Use the same scale. * Wear the same amount of clothing. * Write your weight down on a chart. * Call your Primary Care doctor if you gain more than 2-3 pounds in 1-2 days. MEDICATIONS * Use this discharge instruction sheet for medication instructions. * Take your medications at the time your doctor ordered. * Do not skip a dose of your medicines. * If you miss a dose of medicine, take it as soon as possible, but DO NOT DOUBLE A DOSE. * Read your medicine information when you get home. * Know all of the side effects of your medicine. If in doubt, ask your pharmacist * Call your Primary Care doctor's office if you have any side effects. * Be sure all of your doctors know what medicine and herbs you take (including cold, flu, and herbal medicine). Take the following with you to your follow-up doctor appointments: * Weight Chart * Medication List * List of questions Do not drink excessive alcohol, beer or wine. ADDITIONAL PROVIDER INSTRUCTIONS: 1. Please take all medications as instructed. 2. Please inform your primary care physician (PCP) if there are any issues with the new insulin so they can continue to get you on something that works for you if the current option does not. You will need a repeat A1C check in 3 months. Your PCP will order this. 3. Please follow-up with your PCP within one week of discharge from the rehab facility. 4. Please follow-up in the Heart Failure clinic next week or as otherwise instructed by your Armature Repairer (Dr. Graeme Pak). It was a pleasure taking care of you! Call if you have any questions or problems. You can reach a [facility] hospitalist on duty at [facility] 24 hours a day by calling [phone]. Take care of yourself. Amanda Corcoran, [facility] Hospitalist Current Hospital Diet Patient's current hospital diet: AHA Diet (Heart Healthy), Diabetes Type 2 Diet Discharge Diet Recommended Diet: AHA Diet (Heart Healthy), Diabetes Type 2 Diet Procedures Procedures Performed: TTE: EF 30-35% Moderate left ventricular systolic dysfunction. Mid to apical inferior,basal septal, apical,posterior hypokinesis. Left ventricular diastolic dysfunction. Trace mitral and tricuspid regurgitation. Pending Studies Studies pending at discharge: no Laboratory Results Hemoglobin A1c Test 12/08/16 00:57 Range/Units Estimated Average Glucose 229 mg/dl Hemoglobin A1c 9.6 H 4.5-5.6 % Medical Emergencies . Who to Call and When: Call 911 or go to the Emergency Room if: * If at any time you feel your situation is an emergency * You have tightness or pain in your chest that does not go away with rest or Nitroglycerin * You are very short of breath even with rest . Non-Emergent Contact Non-Emergency issues call your: Primary Care Provider . . "Provider Documentation" section prepared by Amanda Corcoran. . VTE Core Measure Inpt VTE Proph given/why not?: Other Anticoagulation, Contraindicated (initial heaprin drip, switched to heparin SQ, held because of gross hematuria.) Additional Copies To Dr. Kalin Matthews
[2016-12-13] MEDS ORDERED: CLOPIDOGREL BISULFATE 75 MG TAB PO SCH (09:00)
== END 2016-12-12 16:13 | DRG 246 ==
LOC: EDBD 20:57 → C.ED 21:01 → C.MSICU 23:56 → C.2T 12-09 18:25
PROVIDERS: ADMIT Hospitalist; ATTEND Hospitalist
PROC: 4A023N7 Measurement of Cardiac Sampling and Pressure, Left Heart, Percutaneous Approach (ICD-10-PCS; 2016-12-07)
PROC: B211YZZ Fluoroscopy of Multiple Coronary Arteries using Other Contrast (ICD-10-PCS; 2016-12-07)
PROC: 027036Z Dilation of Coronary Artery, One Artery with Three Drug-eluting Intraluminal Devices, Percutaneous Approach (ICD-10-PCS; principal; 2016-12-07 21:20)
DX: I21.19 ST elevation (STEMI) myocardial infarction involving other coronary artery of inferior wall (principal); J96.01 Acute respiratory failure with hypoxia; I50.23 Acute on chronic systolic (congestive) heart failure; I46.8 Cardiac arrest due to other underlying condition; I13.0 Hypertensive heart and chronic kidney disease with heart failure and stage 1 through stage 4 chronic kidney disease, or unspecified chronic kidney disease; N18.3 Chronic kidney disease, stage 3 (moderate); I25.10 Atherosclerotic heart disease of native coronary artery without angina pectoris; I25.5 Ischemic cardiomyopathy; E11.22 Type 2 diabetes mellitus with diabetic chronic kidney disease; E11.65 Type 2 diabetes mellitus with hyperglycemia; R31.9 Hematuria, unspecified; R41.0 Disorientation, unspecified; Z79.4 Long term (current) use of insulin; Z79.82 Long term (current) use of aspirin; Z79.84 Long term (current) use of oral hypoglycemic drugs; Z79.899 Other long term (current) drug therapy; Z86.73 Personal history of transient ischemic attack (TIA), and cerebral infarction without residual deficits

== ENCOUNTER → 2017-03-05 | Outpatient (CLI) | payer OTHER ==
[~2017-03-05] MED LIST changes: +ATOR-26 PO; +INSU3INJ3 SQ; -INSU75IN2 SC; -LISI-461 PO; -LPT/20 PO; +LSN5 PO; -METFTAB PO; +REGADENOSON 0.4 MG/5 ML SYR ONE; -SODIUM CHLORIDE 0.9% 1000ML 1,000 ML IV STA
--- NOTE | 2017-03-08 19:10 | Myocardial Perfusion Study ---
Myocardial Perfusion Study Rpt Myocardial Perfusion Study Rpt Date of Service 03/05/2017 Myocardial Perfusion Study Rpt Procedure: 1. Myocardial perfusion study performed in multiple views/images 2. Lexiscan pharmacologic stress ECG Indications: 1. CAD 2. Prior [place] Consent: Informed written consent was obtained prior to the procedure. Ordering physician: Cheli Agudelo PA-C Procedural details: For the stress portion of the study, Lexiscan 0.4 mg was intravenously administered followed by a saline flush. This was followed by 33.4 mCi of technetium 99m Cardiolite, injected at 1:00 p.m. on 03/05/2017. 30 minutes following the injection, imaging of the heart was performed in multiple projections. For the rest portion of the study, 11.2 mCi technetium 99m Cardiolite was injected intravenously at 11:27 a.m. on 03/05/2017. 1 hour following the injection, imaging of the heart was performed in the same projections. I was made aware on 03/08/2017 that this study was performed and ready for interpretation. Lexiscan stress ECG: Resting ECG demonstrated: Sinus rhythm at 64 bpm. Possible anterior infarct. Maximum heart rate: 91 bpm Resting blood pressure: 115/65 mmHg Maximum blood pressure: 115/65 mmHg Maximal, age-predicted heart rate: 64 % Significant ST changes: None Arrhythmia: None Symptoms: Shortness of breath. No chest pain reported. Findings: Rotating raw imaging demonstrated no significant lung uptake. There is no significant motion artifact. Heart size appeared normal. Myocardial perfusion demonstrated a small area of moderately reduced uptake involving the inferior and inferolateral wall from base to apex. This was fixed with minimal reversibility, suggesting infarct with amita-infarct ischemia. There was a small area of mildly reduced uptake involving the apex and distal anteroseptum, which was reversible in rest imaging, suggesting ischemia. Ejection fraction: 46 % Wall motion: Hypokinesis involving the inferior wall, inferolateral wall, and apex. Other wall motion segments appear normal. No significant transient ischemic dilation. Impression: 1. Abnormal myocardial perfusion study suggesting distal anteroseptal and apical ischemia, as well as inferolateral and inferior infarct with amita- infarct ischemia. 2. Hypokinesis of the apex, inferior, and inferolateral wall segments. 3. Mildly reduced left ventricular systolic function. EF 46%. 4. No chest pain reported. Lexiscan induced dyspnea. 5. No arrhythmia. 6. Nondiagnostic Lexiscan ECG. 7. Ordering clinician made aware of findings as noted above on 03/08/2017.
== END | disposition home or self-care (01) ==
LOC: C.NUCL 10:39
PROVIDERS: ATTEND Physician Assistant
DX: I21.3 ST elevation (STEMI) myocardial infarction of unspecified site (principal); I25.10 Atherosclerotic heart disease of native coronary artery without angina pectoris

== ENCOUNTER 2017-05-14 21:53 | Observation (INO) | payer OTHER ==
[~2017-05-14] VITALS: Ht 172.7 cm; Wt 82.6 kg
[~2017-05-14 21:53] MED LIST changes: -REGADENOSON 0.4 MG/5 ML SYR ONE
[2017-05-14] MEDS ORDERED: ATOR-26 PO (22:48)
[2017-05-14] MEDS ORDERED: LISI-461 PO (22:48)
[2017-05-14] MEDS ORDERED: NTRGSL/4 UT (22:49)
[2017-05-14] MEDS ORDERED: ASPIRIN 81 MG CHEW PO STA (22:50)
[2017-05-14] MEDS ORDERED: NITROGLYCERIN 2% OINTMENT 30GM TUBE EXT ONE (23:00)
[2017-05-14 23:07] LABS: HEMATOCRIT 39.1 % (42-52); HEMOGLOBIN 13.5 g/dL (14.0-18.0); MEAN CELL VOLUME 94.7 fL (80-100); MEAN CORPUSCULAR HEMOGLOBIN 32.7 pg (25-34); MEAN CORPUSCULAR HGB CONC 34.5 g/dl (32-36); MEAN PLATELET VOLUME 10.1 fL (7.4-10.4); PLATELET COUNT 225 K/uL (130-400); RED CELL DISTRIBUTION WIDTH CV 13.9 % (11.5-14.5); RED CELL DISTRIBUTION WIDTH SD 47.9 fL (36.4-46.3); WHITE BLOOD COUNT 8.54 K/uL (4.8-10.8)
--- NOTE | 2017-05-14 23:17 | EMERGENCY ROOM VISIT NOTE ---
History Report prepared by Rubi: Andrade Krause Under the Supervision of: Dr. Corey Rader M.D. First contact with patient: 22:44 Chief Complaint: CHEST PAIN Stated Complaint: CHEST PAIN Nursing Triage Summary: Patient states "I have chest pain. I have nitroglycerin and took 2 tonight but it only lasts a few minutes. I had a heart attack on ." Report it started approx 1 hour ago. Daughter states "He's had pain the last 3 days and has been taking nitro for 3 days. It helps the pain but the pain comes back." History of Present Illness The patient is a 76 year old male who presents to the Emergency Room with complaints of intermittent sharp left-sided chest pain that began four days ago. He rates his pain a 4/10 in severity when it is present. He has a past medical history of an IL that occurred in December of 2016. At that time, he required two defibrillations to restart his heart and received three cardiac stents. He was given maintenance Nitroglycerin after he was discharged. For the past four days, the patient has had this intermittent left-sided chest pain once a day that was resolved completely with Nitroglycerin. He states that his pain was exacerbated by exertion, but completely resolved 5 minutes after taking Nitroglycerin each day. His most recent episode occurred 1 hour ago. He is currently pain free. His pain does not radiate to other locations. He denies any fevers, diaphoresis, cough, shortness of breath, nausea, or other abnormal symptoms. He takes Aspirin daily, but did not take any today. He also has a past medical history of diabetes and states that his sugars have been well managed. Source of History: patient Onset: four days ago Position: chest (left) Symptom Intensity: 4/10 Quality: sharp Timing: intermittent Modifying Factors (Worsening): exertion Modifying Factors (Relieving): other (Nitroglycerin) Associated Symptoms: No fevers, No diaphoresis, No cough, No SOB, No nausea Review of Systems See HPI for pertinent positives & negatives. A total of 10 systems reviewed and were otherwise negative. Past Medical & Surgical Medical Problems: (1) ACS (acute coronary syndrome) (2) Confusion (3) Diabetes (4) Stroke Family History Patient reports no known family medical history. Social History Smoking Status: Never Smoker Alcohol Use: occasionally Drug Use: none Marital Status: Housing Status: lives alone Occupation Status: retired Current/Historical Medications Scheduled Aspirin (Aspirin 81), 81 MG PO DAILY Atorvastatin (Lipitor), 80 MG PO DAILY Clopidogrel Bisulfate (Clopidogrel), 75 MG PO DAILY Furosemide (Furosemide), 20 MG PO DAILY Insulin Detemir (Levemir Flextouch), 50 UNITS SQ BID Lisinopril (Zestril), 10 MG PO DAILY Nitroglycerin (Nitrostat), 0.4 MG UT PRN Allergies Coded Allergies: No Known Allergies (Unverified , 11/23/14) Physical Exam Vital Signs Date Time Temp Pulse Resp B/P (MAP) Pulse Ox O2 Delivery O2 Flow Rate FiO2 05/14/17 23:41 77 18 109/73 96 Room Air 05/14/17 23:03 97 Room Air 05/14/17 22:37 73 05/14/17 21:55 36.7 89 18 124/67 96 Room Air Physical Exam GENERAL: Patient is in no acute distress. HEENT: No acute trauma, normocephalic atraumatic, mucous membranes moist, no nasal congestion, no scleral icterus. NECK: No stridor, no adenopathy, no meningismus, trachea is midline. LUNGS: Clear to auscultation bilaterally, no wheeze, no rhonchi, breath sounds equal. HEART: No murmurs. Regular rhythm with an occasional extra beat. Normal rate. ABDOMEN: Soft, nontender, bowel sounds positive, no hernias, no peritonitis. EXTREMITIES: No cyanosis or edema, full range of motion of all the joints without pain or difficulty, no signs for acute trauma. NEUROLOGIC: Oriented x 3, no acute motor or sensory deficits, no focal weakness. SKIN: No rash, no jaundice, no diaphoresis. Medical Decision & Procedures ER Provider Diagnostic Interpretation: Radiology results as stated below per my interpretation: 1 VIEW CHEST X-RAY: No pneumonia or pneumothorax. Possible mild congestive heart failure vs poor inspiratory effort. Laboratory Results Test 05/14/17 22:20 Prothrombin Time 9.7 SECONDS (9.0-12.0) Prothromb Time International Ratio 0.9 (0.9-1.1) Activated Partial Thromboplast Time 21.2 SECONDS (21.0-31.0) Partial Thromboplastin Ratio 0.8 Pro-B-Type Natriuretic Peptide 748 pg/ml (0-1800) Beta-Hydroxybutyric Acid 1.55 mg/dL (0.2-2.81) Laboratory results reviewed by me. Medications Administered Medications (Trade) Dose Ordered Sig/Rae Route Start Time Stop Time Status Last Admin Dose Admin Nitroglycerin (Nitroglycerin 2% Oint) 1 inch NOW ONCE EXT 05/14/17 23:00 05/14/17 23:01 DC 05/14/17 22:59 1 INCH Aspirin (Aspirin Chew) 324 mg NOW STAT PO 05/14/17 22:50 05/14/17 22:53 DC 05/14/17 22:59 324 MG ECG Indication: chest pain Rate (beats per minute): 65 Rhythm: sinus rhythm Findings: PAC, other (Old inferior infarct, no ST elevation) Change: Patient's electrocardiogram interpreted by me. ED Course 2243: The patient was evaluated in room B3. A complete history and physical exam was performed. 0: Ordered Aspirin 324 mg PO 2300: Ordered Nitroglycerin 1 inch EXT 0004: Upon reexamination the patient is resting. I discussed results and treatment plan with the patient. He verbalizes agreement and understanding. I spoke with Dr. Cochran of the [facility]. We discussed the patient's results and findings. The patient will be evaluated by him for further management. Medical Decision Differential diagnosis includes but is not limited to angina, IL, dysrhythmia, pneumonia, aortic dissection, PE, and musculoskeletal pain. There is no leukocytosis or concerning anemia. Renal panel testing shows some renal insufficiency/dehydration. Sugar was somewhat elevated consistent with his diabetes history. No evidence for hepatitis. No coagulopathy. EKG shows a sinus rhythm with PACs, no acute ischemia. Cardiac enzyme testing times one is not consistent with acute cardiac injury. Chest x-ray shows possibly some fluid overload versus a poor inspiratory effort. There is no pneumonia or pneumothorax. The patient presents with chest pain which has been relieved with nitroglycerin. He has a cardiac history. He was given nitro paste and oral aspirin, he is resting comfortably. Given the history, given his presentation, admission/observation is warranted. I am concerned about angina as the cause for his complaints. I spoke to the patient and case management. The on-call hospitalist was consulted. Medication Reconcilliation Current Medication List: was personally reviewed by me Blood Pressure Screening Patient's blood pressure: Normal blood pressure Blood pressure disposition: Did not require urgent referral Consults Time Called: 0000 Consulting Physician: Dr. Cochran - [facility] Returned Call: [phone] Discussed the patient's case. The patient will be evaluated for further management. Impression Primary Impression: Precordial chest pain Additional Impression: Anginal pain Scribe Attestation The scribe's documentation has been prepared under my direction and personally reviewed by me in its entirety. I confirm that the note above accurately reflects all work, treatment, procedures, and medical decision making performed by me. Departure Information Dispostion Being Evaluated By Hospitalist Referrals Kalin Matthews (PCP) Patient Instructions My [facility] Problem Qualifiers
[2017-05-14 23:19] LABS: INR 0.9 (0.9-1.1); PTT PATIENT 21.2 SECONDS (21.0-31.0)
[2017-05-14 23:29] LABS: ALBUMIN 3.6 gm/dl (3.4-5.0); CALCIUM 8.5 mg/dl (8.5-10.1); CREATININE 1.88 mg/dl (0.60-1.40); POTASSIUM 4.6 mmol/L (3.5-5.1)
[2017-05-15] VITALS (12 sets, daily range): BP systolic 87–178; BP diastolic 44–103; PULSE 60–113; TEMP 36.3–36.8; O2SAT 85–96; Ht 172.7 cm; Wt 82.6 kg
[2017-05-15] MEDS ORDERED: POLYETHYLENE (MIRALAX) 17 GM PACK PO PRN (00:45)
[2017-05-15] MEDS ORDERED: ACETAMINOPHEN 325 MG TAB PO PRN (00:45)
[2017-05-15] MEDS ORDERED: ALUMINUM/MAGNESIUM/SIMETH (MAALOX MAX) 30 ML UDC PO PRN (00:45)
[2017-05-15] MEDS ORDERED: NITROGLYCERIN 0.4 MG SL PER TAB CHARGE SL PRN (00:45)
[2017-05-15] MEDS ORDERED: ONDANSETRON INJ 2 MG/ML 2 ML VIAL IV PRN (00:45)
[2017-05-15] MEDS ORDERED: MAGNESIUM HYDROXIDE SUSP 30 ML UDC PO PRN (00:45)
[2017-05-15] MEDS ORDERED: MoRPHine SULFATE 2 MG/ML CARP IV PRN (00:45)
[2017-05-15] MEDS ORDERED: HydrALAZINE HCL 20 MG/ML VIAL IV. PRN (01:00)
--- NOTE | 2017-05-15 01:12 | History and Physical ---
History & Physical Date & Time of Service: May 15, 2017 at 00:57 Chief Complaint: Chest Pain Primary Care Physician: Kalin Matthews History of Present Illness Source: patient, family The patient is a 76 year old male who presents to the Emergency Room with complaints of chest pain. Patient said he has been having chest pain for the last 4 nights. It is centrally located. He describes it as a dull ache. It does not radiate and it occurs at rest. He says it has occurred when he is sitting in his recliner at night. It lasts for 10-15 minutes and then gets relieved by a tablet of nitroglycerin. His says this pain is not as severe as his heart attack in December. Otherwise he does not get any chest pain with exertion and has not noticed any chest pain at rest before 4 nights ago. He denies any associated shortness of breath, sweating, palpitations, cough, pnd, reflux like symptoms, nausea or vomiting. Of note he says he had an ME December 07 2016 at which point he coded twice and then went to the medical lab specialist where he was found to have multivessel disease. He had 3 drug eluting stents placed in his RCA. He had an echo at that time which showed an EF of 45% with hypokinesis of the inferior wall. He was placed on aspirin and plavix which he has been taking. Past Medical/Surgical History Medical Problems: (1) Diabetes Status: Chronic (2) Stroke Status: Chronic HLD HTN Myocardial Infarction with 3 drug eluting stents Family History Patient reports no known family medical history. Dad had ME at 65 Mother at 96 of old age Social History Smoking Status: Never Smoker Alcohol Use: none Drug Use: none Marital Status: Housing status: lives alone Occupational Status: retired Immunizations History of Influenza Vaccine: Unknown History of Tetanus Vaccine?: Unknown History of Pneumococcal: Unknown History of Hepatitis B Vaccine: Unknown Multi-Drug Resistant Organisms History of MDRO: No Allergies Coded Allergies: No Known Allergies (Unverified , 11/23/14) Home Medications Scheduled Aspirin (Aspirin 81), 81 MG PO DAILY Atorvastatin (Lipitor), 80 MG PO DAILY Clopidogrel Bisulfate (Clopidogrel), 75 MG PO DAILY Furosemide (Furosemide), 20 MG PO DAILY Insulin Detemir (Levemir Flextouch), 50 UNITS SQ BID Lisinopril (Zestril), 10 MG PO DAILY Metoprolol Succinate (Metoprolol Succinate ER), 50 MG PO BID Nitroglycerin (Nitrostat), 0.4 MG UT PRN Pantoprazole (Protonix), 40 MG PO DAILY Review of Systems Constitutional: No fever, No chills, No weakness Respiratory: No cough, No sputum, No shortness of breath Cardiovascular: + chest pain, No orthopnea, No PND, No edema, No claudication, No palpitations Abdomen: No pain, No nausea, No vomiting, No diarrhea, No constipation Genitourinary - Male: No hematuria, No dysuria, No urinary frequency Neurologic: No paralysis, No weakness Endocrine: No fatigue Hematologic / Lymphatic: No abnormal bleeding/bruising, No clotting problems Integumentary: No rash, No itch, No new/changing skin lesions Physical Exam Vital Signs Date Time Temp Pulse Resp B/P (MAP) Pulse Ox O2 Delivery O2 Flow Rate FiO2 05/14/17 23:41 77 18 109/73 96 Room Air 05/14/17 23:03 97 Room Air 05/14/17 22:37 73 05/14/17 21:55 36.7 89 18 124/67 96 Room Air General Appearance: WD/WN, no apparent distress ENT: hearing grossly normal, pharynx normal Neck: supple, no JVD, no carotid bruits, trachea midline Respiratory/Chest: lungs clear, no respiratory distress, no accessory muscle use Cardiovascular: regular rate, rhythm, no edema, normal peripheral pulses Abdomen/GI: normal bowel sounds, non tender, soft Back: normal inspection, no CVA tenderness Extremities/Musculoskelatal: no calf tenderness, no pedal edema, non-tender Neurologic/Psych: alert, normal mood/affect, oriented x 3 Skin: normal color, warm/dry, no rash Diagnostics Laboratory Results Results Past 24 Hours Test 05/14/17 22:20 Range/Units White Blood Count 8.54 4.8-10.8 K/uL Red Blood Count 4.13 4.7-6.1 M/uL Hemoglobin 13.5 14.0-18.0 g/dL Hematocrit 39.1 42-52 % Mean Corpuscular Volume 94.7 80-100 fL Mean Corpuscular Hemoglobin 32.7 25-34 pg Mean Corpuscular Hemoglobin Concent 34.5 32-36 g/dl RDW Standard Deviation 47.9 36.4-46.3 fL RDW Coefficient of Variation 13.9 11.5-14.5 % Platelet Count 225 130-400 K/uL Mean Platelet Volume 10.1 7.4-10.4 fL Prothrombin Time 9.7 9.0-12.0 SECONDS Prothromb Time International Ratio 0.9 0.9-1.1 Activated Partial Thromboplast Time 21.2 21.0-31.0 SECONDS Partial Thromboplastin Ratio 0.8 Sodium Level 136 136-145 mmol/L Potassium Level 4.6 3.5-5.1 mmol/L Chloride Level 105 98-107 mmol/L Carbon Dioxide Level 24 21-32 mmol/L Anion Gap 7.0 3-11 mmol/L Blood Urea Nitrogen 24 7-18 mg/dl Creatinine 1.88 0.60-1.40 mg/dl Est Creatinine Clear Calc Drug Dose 34.5 ml/min Estimated GFR () 38.8 Estimated GFR (Non- 33.5 BUN/Creatinine Ratio 12.8 10-20 Random Glucose 340 70-99 mg/dl Calcium Level 8.5 8.5-10.1 mg/dl Total Bilirubin 0.3 0.2-1 mg/dl Aspartate Amino Transf (AST/SGOT) 19 15-37 U/L Alanine Aminotransferase (ALT/SGPT) 36 12-78 U/L Alkaline Phosphatase 122 45-117 U/L Troponin I 0.035 0-0.045 ng/ml Pro-B-Type Natriuretic Peptide 748 0-1800 pg/ml Total Protein 7.0 6.4-8.2 gm/dl Albumin 3.6 3.4-5.0 gm/dl Globulin 3.4 2.5-4.0 gm/dl Albumin/Globulin Ratio 1.1 0.9-2 Beta-Hydroxybutyric Acid 1.55 0.2-2.81 mg/dL Diagnostic Radiology CXR- no official read but appears to be some mild pulmonary vascular congestion EKG PAC, Old infarct, no ST changes Impression Assessment and Plan 76 year old male with a PMH of ME s/p x3 stent to RCA, DMT2, HTN, HLD and Stroke that presented with chest pain Chest pain w/ hx of ME and multivessel disease - negative troponin in ED, trend q8 - aspirin given in the ED - nitro and morphine prn - EKG w/ chest pain - EKG showed PAC with old infarct - cardiology consulted - hold lisinopril due to SUDHIR, continue furosemide, continue statin, continue plavix, continue aspirin - CXR w/ possible pulmonary vascular congestion, BNP normal - Echo with EF of 45% in December with hypokinesis of inferior wall DMT2 - last Hba1c 9.6 in December - continue levemir and add ISS coverage HTN - hold lisinopril due to SUDHIR - hydralazine 10mg prn for SBP >160 HLD - continue high dose statin SUDHIR with CKD 3b - creatinine usually 1.5-1.8 baseline - 1.88 DVT prophylaxis - heparin subq q12 DNR Attending addendum: I have physically seen this patient, have supervised the medical residents activities, and agree with the H&P unless as otherwise noted. Assessment and Plan: Precordial chest pain/history of ME/multivessel CAD/systolic heart dysfunction with ejection fraction 45%-- The patient will be admitted to telemetry for serial cardiac enzymes, serial EKG's, cardiac rhythm monitoring and a 2-D echocardiogram with Dopplers. Nitropaste 1 inch to anterior chest wall every 6 hours Morphine sulfate 2 mg IV every 30 minutes as needed chest pain Consult cardiology. Diabetes mellitus-- Continue Levemir Placed on Accu-Cheks before meals and at bedtime with NovoLog coverage per scale. Hypertension/AK I-- Hold lisinopril. Hydralazine IV as needed Serial BMP and magnesium level Level of Care Telemetry Advanced Directives Existing Advance Directive: No Existing Living Will: No Existing Power of Graphic Technician: No Resuscitation Status DO NOT RESUSCITATE VTE Prophylaxis VTE Risk Assessment Done? Y/N: Yes Risk Level: Moderate Given or contraindicated: Unfractionated heparin SQ
[2017-05-15] MEDS ORDERED: GLUCAGON FOR INJ 1 MG VIAL SQ PRN (02:30)
[2017-05-15] MEDS ORDERED: GLUCOSE 10 TABS/TUBE PO PRN (02:30)
[2017-05-15] MEDS ORDERED: GLUCOSE 40% GEL 15 GM TUBE PO PRN (02:30)
[2017-05-15] MEDS ORDERED: DEXTROSE 50% 50 ML SYR IV PRN (02:30)
[2017-05-15] MEDS: INSULIN DETEMIR FLEXPEN/FLEX TOUCH 100 UNITS/ML 3ML SQ SCH ×2 (03:14→20:55)
[2017-05-15] MEDS ORDERED: IV FLUIDS COMPLETED PRN (04:30)
--- NOTE | 2017-05-15 05:20 | DIAGNOSTIC IMAGING REPORT ---
CHEST ONE VIEW PORTABLE CLINICAL HISTORY: 76 years-old Male presenting with CHEST PAIN. TECHNIQUE: Portable upright AP view of the chest was obtained. COMPARISON: 12/10/2016. FINDINGS: Cardiac silhouette moderately enlarged, unchanged. Pulmonary vascular prominence, though not as severe as on the prior exam. Prominent lung markings bilaterally. Mildly low lung volumes with hypoventilatory changes. Bandlike opacities noted in the mid to lower lungs bilaterally. No large pleural effusion or pneumothorax. Degenerative changes of the thoracic spine. Upper abdomen normal. IMPRESSION: 1. Mildly low lung volumes with hypoventilatory changes. 2. Cardiomegaly with volume overload. Developing pulmonary edema is difficult to exclude. Electronically signed by: Maximus Zuluaga M.D. 05/15/2017 5:19 AM Dictated Date/Time: 05/15/2017 5:17 AM
[2017-05-15] MEDS: NITROGLYCERIN 2% OINTMENT 30GM TUBE EXT SCH ×2 (05:59→12:00)
[2017-05-15] MEDS ORDERED: INSULIN ASPART 100 UNITS/ML 3 ML PEN SC SCH (06:00)
[2017-05-15 06:47] LABS: HEMATOCRIT 35.5 % (42-52); HEMOGLOBIN 12.2 g/dL (14.0-18.0); MEAN CELL VOLUME 93.4 fL (80-100); MEAN CORPUSCULAR HEMOGLOBIN 32.1 pg (25-34); MEAN CORPUSCULAR HGB CONC 34.4 g/dl (32-36); MEAN PLATELET VOLUME 9.9 fL (7.4-10.4); PLATELET COUNT 201 K/uL (130-400); RED CELL DISTRIBUTION WIDTH CV 13.7 % (11.5-14.5); RED CELL DISTRIBUTION WIDTH SD 46.5 fL (36.4-46.3); WHITE BLOOD COUNT 7.91 K/uL (4.8-10.8)
[2017-05-15] MEDS: INSULIN ASPART 100 UNITS/ML 3 ML PEN SC SCH ×4 (07:00→20:51)
[2017-05-15 07:17] LABS: ALBUMIN 3.2 gm/dl (3.4-5.0); CALCIUM 8.4 mg/dl (8.5-10.1); CREATININE 1.52 mg/dl (0.60-1.40); POTASSIUM 4.3 mmol/L (3.5-5.1)
[2017-05-15 07:30] LABS: TOTAL PROTEIN 6.2 gm/dl (6.4-8.2)
[2017-05-15] MEDS ORDERED: FUROSEMIDE 20 MG TAB PO SCH (09:00)
[2017-05-15] MEDS ORDERED: ASPIRIN 81 MG ECTAB PO SCH (09:00)
[2017-05-15] MEDS: ASPIRIN 81 MG ECTAB PO SCH (10:00)
[2017-05-15] MEDS: ATORVASTATIN 40 MG TAB PO SCH (10:00)
[2017-05-15] MEDS: CLOPIDOGREL BISULFATE 75 MG TAB PO SCH (10:01)
[2017-05-15] MEDS: HEPARIN SOD 5000 UNIT/0.5 ML CARP SQ SCH ×2 (10:16→20:56)
--- NOTE | 2017-05-15 10:28 | Family Medicine Progress Note ---
Progress Note Date of Service May 15, 2017. Subjective Pt evaluation today including: conversation w/ patient, physical exam, chart review, lab review, review of inpatient medication list Pain: No pain reported PO Intake: NPO Voiding: no voiding problems Mr. Russell reports he feels well today. He states he has had chest pain occurring sporadically over the last 4 nights, lasting approximately 15 minutes until he takes his nitroglycerin. He states the pain is central, dull in nature , does not radiate, and occurred both while he was walking and at rest. No associated n/v, diaphoresis, SOB. He states otherwise he has been well recently. He notes the pain is similar to the pain he had with his SC in December 2016, at which time he had 3 stents placed. He states he has not had any chest pain since then, and has been compliant with his medications. Constitutional: No fever, No chills, No sweats Respiratory: No cough, No sputum, No wheezing, No shortness of breath Cardiovascular: + chest pain, No orthopnea, No PND, No edema Abdomen: No pain, No nausea, No vomiting All Other Systems: Reviewed and Negative Medications Current Inpatient Medications Medications (Trade) Dose Ordered Sig/Rae Route Start Time Stop Time Status Last Admin Dose Admin Acetaminophen (Tylenol Tab) 650 mg Q4H PRN PO 05/15/17 00:45 06/14/17 00:44 Al Hydrox/Mg Hydrox/Simethicone (Maalox Max Susp) 15 ml Q4H PRN PO 05/15/17 00:45 06/14/17 00:44 Magnesium Hydroxide (Milk Of Magnesia Susp) 30 ml Q12H PRN PO 05/15/17 00:45 06/14/17 00:44 Ondansetron HCl (Zofran Inj) 4 mg Q6H PRN IV 05/15/17 00:45 06/14/17 00:44 Nitroglycerin (Nitrostat Tab) 0.4 mg UD PRN SL 05/15/17 00:45 06/14/17 00:44 Nitroglycerin (Nitroglycerin 2% Oint) 1 inch Q6H EXT 05/15/17 06:00 06/14/17 05:59 05/15/17 05:59 1 INCH Morphine Sulfate (MoRPHine SULFATE INJ) 2 mg Q30M PRN IV 05/15/17 00:45 05/29/17 00:44 Aspirin (Ecotrin Tab) 81 mg QAM PO 05/15/17 09:00 06/14/17 08:59 05/15/17 10:00 81 MG Polyethylene (Miralax Powder Packet) 17 gm DAILY PRN PO 05/15/17 00:45 06/14/17 00:44 Insulin Aspart (novoLOG ASPART) SLIDING SCALE G... ACHS SC 05/15/17 07:00 06/14/17 06:59 Atorvastatin Calcium (Lipitor Tab) 80 mg DAILY PO 05/15/17 09:00 06/14/17 08:59 05/15/17 10:00 80 MG Clopidogrel Bisulfate (plAVix TAB) 75 mg DAILY PO 05/15/17 09:00 06/14/17 08:59 05/15/17 10:01 75 MG Furosemide (Lasix Tab) 20 mg DAILY PO 05/15/17 09:00 06/14/17 08:59 05/15/17 10:00 20 MG Insulin Detemir (Levemir Flexpen/ FlexTouch) 50 units BID SQ 05/15/17 09:00 06/14/17 08:59 05/15/17 03:14 50 UNITS Hydralazine HCl (HydrALAZINE INJ) 10 mg Q4H PRN IV. 05/15/17 01:00 06/14/17 00:59 Heparin Sodium (Porcine) (Heparin Sq 5000 Unit/0.5ml) 5,000 unit Q12 SQ 05/15/17 09:00 06/14/17 08:59 05/15/17 10:16 5,000 UNIT Glucose (Glucose 40% Gel) 15-30 GRAMS 15 GRAMS... UD PRN PO 05/15/17 02:30 06/14/17 02:29 Glucose (Glucose Chew Tab) 4-8 Tablets 4 Tabl... UD PRN PO 05/15/17 02:30 06/14/17 02:29 Dextrose (Dextrose 50% 50ML Syringe) 25-50ML OF 50% DW IV FOR... UD PRN IV 05/15/17 02:30 06/14/17 02:29 Glucagon (Glucagon Inj) 1 mg UD PRN SQ 05/15/17 02:30 06/14/17 02:29 Miscellaneous (Iv Fluids Completed) 1 ea PRN PRN N/A 05/15/17 04:30 05/15/18 04:29 Objective Vital Signs Date Time Temp Pulse Resp B/P (MAP) Pulse Ox O2 Delivery O2 Flow Rate FiO2 05/15/17 08:09 36.6 75 10 104/55 (71) 95 Room Air 05/15/17 05:07 36.5 89 24 87/44 (58) 92 Room Air 05/15/17 04:00 Room Air 05/15/17 01:43 60 18 118/66 95 05/15/17 01:35 36.3 79 20 129/58 96 Room Air 05/14/17 23:41 77 18 109/73 96 Room Air 05/14/17 23:03 97 Room Air 05/14/17 22:37 73 05/14/17 21:55 36.7 89 18 124/67 96 Room Air Physical Exam General Appearance: WD/WN, no apparent distress Respiratory/Chest: lungs clear, normal breath sounds, no respiratory distress, no accessory muscle use Cardiovascular: regular rate, rhythm, no edema, no gallop, no murmur Abdomen: normal bowel sounds, non tender, soft Laboratory Results Last 24 Hours Test 05/14/17 22:20 05/15/17 02:25 05/15/17 06:03 05/15/17 06:38 White Blood Count 8.54 K/uL 7.91 K/uL Red Blood Count 4.13 M/uL 3.80 M/uL Hemoglobin 13.5 g/dL 12.2 g/dL Hematocrit 39.1 % 35.5 % Mean Corpuscular Volume 94.7 fL 93.4 fL Mean Corpuscular Hemoglobin 32.7 pg 32.1 pg Mean Corpuscular Hemoglobin Concent 34.5 g/dl 34.4 g/dl RDW Standard Deviation 47.9 fL 46.5 fL RDW Coefficient of Variation 13.9 % 13.7 % Platelet Count 225 K/uL 201 K/uL Mean Platelet Volume 10.1 fL 9.9 fL Prothrombin Time 9.7 SECONDS Prothromb Time International Ratio 0.9 Activated Partial Thromboplast Time 21.2 SECONDS Partial Thromboplastin Ratio 0.8 Sodium Level 136 mmol/L 139 mmol/L Potassium Level 4.6 mmol/L 4.3 mmol/L Chloride Level 105 mmol/L 109 mmol/L Carbon Dioxide Level 24 mmol/L 25 mmol/L Anion Gap 7.0 mmol/L 5.0 mmol/L Blood Urea Nitrogen 24 mg/dl 27 mg/dl Creatinine 1.88 mg/dl 1.52 mg/dl Est Creatinine Clear Calc Drug Dose 34.5 ml/min 42.1 ml/min Estimated GFR () 38.8 50.1 Estimated GFR (Non- 33.5 43.3 BUN/Creatinine Ratio 12.8 17.9 Random Glucose 340 mg/dl 219 mg/dl Calcium Level 8.5 mg/dl 8.4 mg/dl Total Bilirubin 0.3 mg/dl 0.3 mg/dl Aspartate Amino Transf (AST/SGOT) 19 U/L 15 U/L Alanine Aminotransferase (ALT/SGPT) 36 U/L 31 U/L Alkaline Phosphatase 122 U/L 107 U/L Troponin I 0.035 ng/ml 0.075 ng/ml Pro-B-Type Natriuretic Peptide 748 pg/ml Total Protein 7.0 gm/dl 6.2 gm/dl Albumin 3.6 gm/dl 3.2 gm/dl Globulin 3.4 gm/dl 3.0 gm/dl Albumin/Globulin Ratio 1.1 1.1 Beta-Hydroxybutyric Acid 1.55 mg/dL Bedside Glucose 279 mg/dl 200 mg/dl Assessment and Plan Mr. Russell is a 76 year old male with a past medical history of an SC s/p x3 stent to RCA, DM2, HTN, and HLD who presented with chest pain Chest pain w/ hx of SC and multivessel disease - negative troponin in ED, subsequent troponin elevated at 0.075 - EKG showed PAC with old infarct, no new changes - thank you to cardiology for consult - d/c nitro paste given hypotension and absence of chest pain - pt was on 100mg daily of Toprol XL at home, start 50mg Toprol BID tonight and monitor BP - can restart home dose of lisinopril tomorrow given improvement in creatinine - continue statin, continue plavix, continue aspirin - CXR w/ possible pulmonary vascular congestion, BNP normal. Does not appear volume overloaded clinically. Will monitor daily weights and I&Os Chronic Systolic CHF - Echo with EF of 45% in December with hypokinesis of inferior wall - hold furosemide given low BP and pt does not appear volume overloaded at this time DM2 - last Hba1c 9.6 in December - continue levemir and add ISS coverage HTN - will resume home dose of lisinopril tomorrow HLD - continue high dose statin SUDHIR with CKD 3b - creatinine usually 1.5-1.8 baseline - creatinine 1.52 today, improved from 1.88 yesterday DVT prophylaxis: heparin subq q12 Code: DNR Disposition: pending clinical improvement Resident Tracking Resident Involvement: Resident Care Provided Care Provided: Adult Hospital Medicine Reviewed: Pt Seen/Exam by Me History no chest pain, shortness of breath Constitutional: denies: fever Respiratory: negative: short of breath Cardiovascular: denies chest pain General Appearance: no apparent distress Respiratory: lungs clear, no respiratory distress Cardiovascular: regular rate, rhythm Neurologic/Psychiatric: alert, oriented x 3 Skin Characteristics: warm/dry Assessment/Plan Resident Physician Supervision Note: I independently interviewed and examined the patient and verified the clark history and physical, reviewed labs and image studies, discussed the case with the resident Dr. Gordon and agree with the findings and care plan.
[2017-05-15] MEDS ORDERED: NURSING VERBAL MED ORDER ONE ×2 (10:30→12:15)
[2017-05-15] MEDS ORDERED: INSULIN GLARGINE SOLOSTAR 100 UNITS/ML 3 ML PEN SC ONE (11:15)
[2017-05-15] MEDS ORDERED: INSULIN DETEMIR PER UNIT CHARGE SC STA (12:15)
--- NOTE | 2017-05-15 15:37 | CARDIOLOGY CONSULTATION ---
DATE OF CONSULTATION: 05/15/2017 PERTINENT HISTORY: Mr. Russell is a 76-year-old male with a known coronary artery disease who was admitted yesterday with a chest pain syndrome. This consultation was ordered to assist in his cardiac management. Of note, the patient typically follows with Dr. Pak in the outpatient setting. The patient was in his usual state of health until approximately 4 days prior to presentation. While sitting in his reclining chair watching TV, he developed a substernal chest discomfort, which he described as a pressure type sensation. There were no other associated symptoms such as shortness of breath, nausea, vomiting, diaphoresis, or radiation of the discomfort. The patient took 2 sublingual nitroglycerin tablets and his symptom resolved. Total duration of his discomfort was approximately 15 minutes. On the subsequent 3 nights, this same symptom complex developed. At no time has the patient experienced exertional angina pectoris. He also denies exertional dyspnea. He further denies syncope, presyncope, PND, orthopnea, palpitations, or lower extremity edema. The patient's recent cardiac history began on 12/07/2016 when he presented with an acute inferior wall myocardial infarction. He had 3 overlapping drug-eluting stents placed in the right coronary artery. He did have 2 episodes of sudden cardiac , requiring resuscitation. Other coronary anatomy included a diffusely diseased left main and a chronic occlusion of the LAD just after the second diagonal branch. The distal vessel is filled with left-sided collaterals. There is a 70% proximal second diagonal branch stenosis. There was a 90% stenosis in the small left circumflex in the mid vessel. There is a diffuse 72% proximal RCA stenosis with a 100% mid right coronary artery stenosis that was felt to be the culprit lesion. There is a 60% followed by a 90% stenosis in the right-sided PDA. Stents used included a 3.0 x 38 mm Resolute, 3.0 x 26 Resolute, and a 2.75 x 15 mm Resolute. Currently, the patient is resting comfortably in bed without complaints. PAST MEDICAL HISTORY: 1. Coronary artery disease -- see above. 2. Acute inferior wall infarction -- 12/07/2016. 3. Overlapping drug-eluting stents -- 12/07/2016. 4. Ischemic cardiomyopathy -- 45%. 5. Chronic systolic CHF. 6. Hypertension 7. Hypercholesterolemia. 8. Diabetes mellitus. 9. Chronic renal failure. 10. History of CVA -- 2013. MEDICATIONS: 1. Toprol-XL 100 mg per day -- on hold. 2. Lisinopril 10 mg daily -- on hold. 3. Plavix 75 mg per day. 4. Aspirin 81 mg per day. 5. Lipitor 80 mg at bedtime. 6. Insulin. 7. Nitro paste 1 inch q. 6 hours. ALLERGIES: None. SOCIAL HISTORY: The patient is single and lives alone. 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 Does not use tobacco or alcohol. FAMILY HISTORY: Noncontributory. REVIEW OF SYSTEMS: A 10-point review of systems is negative except for that described above. PHYSICAL EXAMINATION: GENERAL: This is a well-developed, well-nourished, white male lying supine in bed without complaints. VITAL SIGNS: Blood pressure is 116/54 with a regular pulse of 60. Respiratory rate is 18 and the patient is afebrile at 36.4 degrees Celsius. Saturation 95% on room air. HEENT: Negative. NECK: Supple with full carotid upstrokes. There are no carotid bruits. Jugular venous pressure is flat at 90 degrees. There is no thyromegaly. CARDIOVASCULAR: Reveals a regular rhythm with normal S1 and S2. Heart sounds are distant. No obvious murmurs. LUNGS: Clear without rales, rhonchi, or wheezes. ABDOMEN: Soft and nontender without bruits. EXTREMITIES: Reveal intact radial artery pulses bilaterally. Trace pretibial edema is noted. DATA: CBC notes a hemoglobin of 12.2, hematocrit 35.5, white count 7.9, platelet count 201,000. Electrolytes note a sodium of 139, potassium 4.3, chloride 109, bicarb 25, BUN 27, creatinine 1.52, glucose 119. Initial troponin was 0.035 with a followup value mildly elevated at 0.075. EKG notes sinus rhythm with PVCs, left axis deviation, and an old inferior myocardial infarction. Chest x-ray notes cardiomegaly, but no acute changes. IMPRESSION: Mr. Russell was admitted with a chest pain syndrome occurring 4 days leading up to his presentation. Difficult to determine if this was truly an angina pectoris. The episodes all occurred at rest, but were nitroglycerin responsive. He does have a known 3-vessel disease, which has been treated medically since December. At this point, we would trend his enzymes and attempt to get his beta treasure and RAÚL inhibitor back on board. He could be a candidate for Ranexa. PLAN: 1. Discontinue topical nitrates. 2. Start metoprolol succinate 50 mg b.i.d., when blood pressure allows. 3. Consider restarting lisinopril within the next 24 hours. 4. Could consider a trial of Ranexa. 5. Further recommendations depending on his clinical course. MTDD
--- NOTE | 2017-05-15 19:10 | DIAGNOSTIC IMAGING REPORT ---
CHEST ONE VIEW PORTABLE CLINICAL HISTORY: 76 years-old Male presenting with hypoxia acute. TECHNIQUE: Portable upright AP view of the chest was obtained. COMPARISON: 05/14/2017. FINDINGS: Cardiac silhouette mildly prominent as on prior exam. Slight interval decrease in pulmonary vascular prominence. Decreased vague perihilar opacity. Mildly low lung volumes unchanged. No focal opacity. No large effusion or pneumothorax. Degenerative changes of the thoracic spine. Upper abdomen normal. IMPRESSION: 1. Mild cardiomegaly with decreased volume overload and congestive change. 2. Mildly low lung volumes with hypoventilatory changes. 3. No focal infiltrate to suggest pneumonia. Electronically signed by: Maximus Zuluaga M.D. 05/15/2017 7:08 PM Dictated Date/Time: 05/15/2017 7:07 PM
[2017-05-15] MEDS ORDERED: RANITIDINE HCL 150 MG TAB PO ONE (20:00)
[2017-05-15] MEDS: METOPROLOL SUCC 50MG EXT REL TAB PO SCH (21:32)
[2017-05-16 04:00] VITALS: BP 100/63; PULSE 70; TEMP 36.8; O2SAT 91
[2017-05-16 06:24] LABS: HEMATOCRIT 38.2 % (42-52); HEMOGLOBIN 13.2 g/dL (14.0-18.0); MEAN CELL VOLUME 93.2 fL (80-100); MEAN CORPUSCULAR HEMOGLOBIN 32.2 pg (25-34); MEAN CORPUSCULAR HGB CONC 34.6 g/dl (32-36); MEAN PLATELET VOLUME 10.1 fL (7.4-10.4); PLATELET COUNT 208 K/uL (130-400); RED CELL DISTRIBUTION WIDTH CV 13.7 % (11.5-14.5); RED CELL DISTRIBUTION WIDTH SD 46.5 fL (36.4-46.3); WHITE BLOOD COUNT 9.22 K/uL (4.8-10.8)
[2017-05-16 06:54] LABS: CALCIUM 8.5 mg/dl (8.5-10.1); CREATININE 1.46 mg/dl (0.60-1.40)
[2017-05-16 06:58] VITALS: BP 111/55; PULSE 58; TEMP 36.8; O2SAT 93
[2017-05-16] MEDS: ASPIRIN 81 MG ECTAB PO SCH (08:30)
[2017-05-16] MEDS: CLOPIDOGREL BISULFATE 75 MG TAB PO SCH (08:30)
[2017-05-16] MEDS: ATORVASTATIN 40 MG TAB PO SCH (08:30)
[2017-05-16] MEDS: HEPARIN SOD 5000 UNIT/0.5 ML CARP SQ SCH (08:34)
[2017-05-16] MEDS: INSULIN DETEMIR FLEXPEN/FLEX TOUCH 100 UNITS/ML 3ML SQ SCH (08:35)
[2017-05-16] MEDS: INSULIN ASPART 100 UNITS/ML 3 ML PEN SC SCH ×2 (08:35→12:17)
[2017-05-16] MEDS: METOPROLOL SUCC 50MG EXT REL TAB PO SCH (08:47)
[2017-05-16] MEDS ORDERED: LISINOPRIL 10 MG TAB PO SCH (09:00)
[2017-05-16] MEDS ORDERED: NTRGSL/4 UT (11:52)
[2017-05-16] MEDS ORDERED: TPRSR50 PO (11:52)
[2017-05-16 11:54] VITALS: BP 106/56; PULSE 70; TEMP 36.8; O2SAT 94
--- NOTE | 2017-05-16 11:59 | CARDIOLOGY PROGRESS NOTE ---
DATE: 05/16/2017 SUBJECTIVE: Mr. Russell is resting comfortably in bed and anxious for hospital discharge. He had an episode of chest discomfort last evening following his supper. This was similar to the 4 episodes he experienced prior to his presentation. Again, there were no associated symptoms with his chest discomfort. He did not experience an acid rash. OBJECTIVE: VITAL SIGNS: Blood pressure 111/55 with a regular pulse of 58. Respiratory rate is 20 and the patient is afebrile at 36.8 degrees Celsius. Saturation 93% on room air. NECK: Supple with full carotid upstrokes. There are no carotid bruits. Jugular venous pressure is flat at 90 degrees. There is no thyromegaly. CARDIOVASCULAR: Reveals a regular rhythm with a normal S1 and S2. Heart sounds are distant. No obvious murmurs. LUNGS: Clear without rales, rhonchi, or wheezes. ABDOMEN: Soft without bruits. EXTREMITIES: Reveal intact radial artery pulses bilaterally. Trace pretibial edema is noted. DATA: CBC notes hemoglobin of 13.2, hematocrit 38.2, white count 9.22, and platelet count 208,000. Electrolytes note a sodium of 138, potassium 4.0, chloride 108, bicarb 23, BUN 27, creatinine 1.46, glucose 113. Troponin I level done yesterday afternoon and evening were 0.025 and 0.021, respectively. Troponin I this morning was 0.05. audio visual tech notes occasional PACs. IMPRESSION AND PLAN: 1. Chest pain syndrome -- not certain if this represents angina pectoris or possibly acid reflux. His minor troponin elevations are of little clinical significance. No acute echocardiogram changes. He is back on metoprolol succinate and lisinopril. As described yesterday, the patient is for conservative medical care regarding his coronary artery disease as suggested by his cardiac catheterization back in December 2016. 2. Known coronary artery disease -- as before. 3. Ischemic cardiomyopathy -- 45%. 4. Chronic systolic congestive heart failure -- compensated at this time. 5. Hypertension -- controlled. 6. Hypercholesterolemia -- continue statin. 7. Diabetes mellitus. 8. Disposition -- stable for transfer to floor or discharge home.
--- NOTE | 2017-05-16 12:05 | Discharge Instructions ---
Discharge Instructions Date of Service May 16, 2017. Admission Reason for Admission: Precordial Chest Pain Discharge Discharge Diagnosis / Problem: Chest Pain Discharge Goals Goal(s): Decrease discomfort, Improve function Activity Recommendations Activity Limitations: resume your previous activity . Instructions / Follow-Up Instructions / Follow-Up You came to [facility] due to chest pain that occurred for 4 evenings in a row. You were seen by our broadcast maintenance engineer who checked a tracing of your heart (EKG), as well as troponin levels (which measure damage to your heart). Your EKG was normal and your troponin levels were slightly elevated, but not enough to suggest that this was due to a heart attack. It is possible that your symptoms are due to acid reflux, resulting in chest pain. We will be discharging you with a medication called protonix which treats acid reflux. We also recommend that you eat smaller meals, especially in the evenings, and do not lie flat for at least 30 minutes after each meal. We also changed your metoprolol from 100mg daily to 50mg twice a day as your blood pressure was on the lower side during your time in the hospital. You will also be following up with cardiology in the office to reassess your symptoms and see if any changes need to be made to your medications. If you experience worsening of your chest pain or difficulty breathing, please take your nitroglycerin and call 911. Current Hospital Diet Patient's current hospital diet: AHA Diet (Heart Healthy), Diabetes Type 2 Diet Discharge Diet Recommended Diet: AHA Diet (Heart Healthy), Diabetes Type 2 Diet Pending Studies Studies pending at discharge: no Medical Emergencies . Who to Call and When: Medical Emergencies: If at any time you feel your situation is an emergency, please call 911 immediately. . Non-Emergent Contact Non-Emergency issues call your: Primary Care Provider . . "Provider Documentation" section prepared by Emil Gordon. . VTE Core Measure Inpt VTE Proph given/why not?: Unfractionated heparin SQ
[2017-05-16] MEDS ORDERED: PANT40TA PO (12:06)
--- NOTE | 2017-05-16 12:19 | Discharge Summary ---
Discharge Summary Date of Service May 16, 2017. 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% Consultations: Cardiology Medication Reconciliation New Medications: Pantoprazole (Protonix) 40 Mg Tab 40 MG PO DAILY, #30 TAB 1 Refill Metoprolol Succinate (Metoprolol Succinate ER) 50 Mg Tabcr 50 MG PO BID for 30 Days, #60 TABS 2 Refills Continued Medications: Aspirin (Aspirin 81) 81 Mg Tab 81 MG PO DAILY Atorvastatin (Lipitor) 80 Mg Tab 80 MG PO DAILY, TAB Clopidogrel Bisulfate (Clopidogrel) 75 Mg Tab 75 MG PO DAILY, #90 Furosemide (Furosemide) 20 Mg Tab 20 MG PO DAILY, #14 Insulin Detemir (Levemir Flextouch) 100 Unit/Ml Inj 50 UNITS SQ BID Lisinopril (Zestril) 10 Mg Tab 10 MG PO DAILY, TAB Nitroglycerin (Nitrostat) 0.4 Mg Tab 0.4 MG UT PRN for 30 Days, #30 TABS 2 Refills (This prescription has been renewed) Discharge Exam Mr. Russell reports he feels well today. He did have one episode of chest pain 30 minutes after eating dinner last night that resolved with nitroglycerin. He states he has not been in any pain since and is eager for discharge. He denies shortness of breath, n/v, leg swelling, or abdominal pain. Review of Systems: Constitutional: No fever, No chills Respiratory: No cough, No sputum, No shortness of breath Cardiovascular: + chest pain, No edema, No palpitations Abdomen: No pain, No nausea, No vomiting, No diarrhea, No constipation Physical Exam: General Appearance: WD/WN, no apparent distress Neck: no JVD Respiratory/Chest: lungs clear, normal breath sounds, no respiratory distress, no accessory muscle use Cardiovascular: regular rate, rhythm, no edema, no gallop, no murmur Abdomen / GI: non tender, soft Extremities: no calf tenderness, no pedal edema Hospital Course Mr. 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 angina? - no chest pain with exercise & also symptoms seem to occur 30 mins after dinner when he is lying down in his recliner - trial of 40mg protonix daily and will f/u with outpatient cardiology to determine if he needs to be on an anti-anginal med Chronic Systolic CHF - stable, not volume overloaded SUDHIR with CKD 3b - creatinine usually 1.5 baseline - creatinine 1.46 on discharge Total Time Spent: Greater than 30 minutes This includes examination of the patient, discharge planning, medication reconciliation, and communication with other providers. Discharge Instructions Please refer to the electronic Patient Visit Report (Discharge Instructions) for additional information. Additional Copies To Kalin Matthews Resident Tracking Resident Involvement: Resident Care Provided Care Provided: Adult Hospital Medicine Reviewed: Pt Seen/Exam by Me History denies any concerns. Constitutional: denies: fever Respiratory: negative: short of breath Cardiovascular: denies chest pain General Appearance: no apparent distress Respiratory: no respiratory distress Cardiovascular: regular rate, rhythm Neurologic/Psychiatric: alert, oriented x 3 Skin Characteristics: warm/dry Assessment/Plan Resident Physician Supervision Note: I independently interviewed and examined the patient and verified the clark history and physical, reviewed labs and image studies, discussed the case with the resident Dr. Gordon and agree with the findings and care plan.
[2017-05-16 12:40] VITALS: BP 106/56; PULSE 70; TEMP 36.8; O2SAT 94
== END 2017-05-16 13:13 | disposition home or self-care (01) ==
LOC: C.EDB 21:54 → C.2E 05-15 00:48 → ENRESERV 05-15 01:16
PROVIDERS: ADMIT Hospitalist; ATTEND Family Medicine
DX: R07.9 Chest pain, unspecified (principal); E11.9 Type 2 diabetes mellitus without complications; I11.0 Hypertensive heart disease with heart failure; E78.5 Hyperlipidemia, unspecified; Z86.73 Personal history of transient ischemic attack (TIA), and cerebral infarction without residual deficits; I25.2 Old myocardial infarction; I50.20 Unspecified systolic (congestive) heart failure; Z95.5 Presence of coronary angioplasty implant and graft; Z79.82 Long term (current) use of aspirin; Z79.899 Other long term (current) drug therapy; Z79.02 Long term (current) use of antithrombotics/antiplatelets; Z79.4 Long term (current) use of insulin